=== PATIENT | female | born 1970 | race African-American/Black ===

== ENCOUNTER 2016-11-25 22:44 | Emergency (ER) | payer MEDICARE, OTHER ==
[~2016-11-25 22:44] MED LIST: BACT800T5 PO; COZA50TA PO; DICY1TAB26 PO; FERR324T4 PO; HALO5 PO; INDO50 PO; LEVO125T3 PO; PROM25TA5 PO; PROT40TA PO; RANI150 PO
[2016-11-25 22:58] VITALS: BP 144/78; PULSE 85; RESP 16; TEMP 98.2; O2SAT 97
[2016-11-25 23:38] LABS: AUTOMATED NEUTROPHIL # 3.9 TH/MM3 (1.8-7.7); BASOPHIL % 0.4 % (0.0-2.0); EOSINOPHIL # 0.1 TH/MM3 (0-0.4); EOSINOPHIL % 1.1 % (0.0-4.0); HEMATOCRIT 34.9 % (35.0-46.0); HEMO FLAGS DIFF FINAL; LYMPHOCYTE # 1.2 TH/MM3 (1.0-4.8); MEAN CELL VOLUME 89.2 FL (80.0-100.0); MEAN CORPUSCULAR HEMOGLOBIN 29.6 PG (27.0-34.0); MEAN CORPUSCULAR HGB CONC 33.2 % (32.0-36.0); MONO % 7.9 % (0.0-8.0); NEUT % 69.6 % (16.0-70.0); PLATELET COUNT 219 TH/MM3 (150-450); RED BLOOD COUNT 3.91 MIL/MM3 (4.00-5.30); RED CELL DISTRIBUTION WIDTH 13.7 % (11.6-17.2); WHITE BLOOD COUNT 5.7 TH/MM3 (4.0-11.0)
[2016-11-25 23:49] LABS: ANION GAP 11 MEQ/L (5-15)
[2016-11-25 23:52] LABS: ALKALINE PHOSPHATASE 91 U/L (45-117); ALT (GPT) 106 U/L (10-53); AST (GOT) 164 U/L (15-37); BICARBONATE 21.1 MEQ/L (21.0-32.0); BLOOD UREA NITROGEN 21 MG/DL (7-18); CHLORIDE 106 MEQ/L (98-107); GLOMERULAR FILTRATION RATE 38 ML/MIN (>89); POTASSIUM 4.3 MEQ/L (3.5-5.1); SODIUM (NA) 138 MEQ/L (136-145); TOTAL BILIRUBIN ADULT 0.3 MG/DL (0.2-1.0)
[2016-11-25 23:54] LABS: ACETAMINOPHEN LESS THAN 2.0 MCG/ML (10.0-30.0)
[2016-11-26 00:55] LABS: BACTERIA, URINE RARE /hpf; BLOOD, URINE SMALL (NEG); COMMENT (UR) CULT NOT INDICATED; CULTURE IF INDICATED CULT NOT INDICATED; GLUCOSE,URINE NEG (NEG); HYALINE CAST, URINE 18 /lpf (RARE); KETONE, URINE NEG (NEG); MUCUS URINE FEW /lpf (OCC); NITRITE,URINE NEG (NEG); SQUAMOUS EPITHELIAL CELL URINE 9 /hpf (0-5); URINE COLOR YELLOW (YELLW/STRAW)
[2016-11-26 00:57] LABS: AMPHETAMINE, URINE NEG (NEG); BARBITURATES, URINE NEG (NEG); COCAINE, URINE POS (NEG)
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
[2016-11-26 02:59] VITALS: BP 139/75; PULSE 75; PULSE 85; RESP 16; RESP 18; O2SAT 100
[2016-11-26] MEDS ORDERED: PROPOFOL 200 MG/20 ML AMP IV ONE (03:00)
[2016-11-26 03:10] VITALS: O2SAT 100
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
[2016-11-26] MEDS ORDERED: IBUP800T23 PO (06:16)
[2016-11-26 06:42] VITALS: BP 141/85; PULSE 76; RESP 18; O2SAT 97
== END 2016-11-26 09:16 | disposition home or self-care (01) ==
LOC: NEPD 22:44
DX: S43.085A Other dislocation of left shoulder joint, initial encounter (principal); S80.02XA Contusion of left knee, initial encounter; I10 Essential (primary) hypertension; Z86.2 Personal history of diseases of the blood and blood-forming organs and certain disorders involving the immune mechanism; Z86.59 Personal history of other mental and behavioral disorders; Z86.79 Personal history of other diseases of the circulatory system; Z86.69 Personal history of other diseases of the nervous system and sense organs; V09.9XXA Pedestrian injured in unspecified transport accident, initial encounter
CPT/HCPCS: 23650; 73030; 73560; 80053; 80307; 81001; 84703; 85025; 99152

== ENCOUNTER → 2017-03-01 | Outpatient (CLI) | payer MEDICARE, OTHER ==
[~2017-03-01] MED LIST changes: -BACT800T5 PO; -COZA50TA PO; -DICY1TAB26 PO; -FERR324T4 PO; -HALO5 PO; +IBUP800T23 PO; -INDO50 PO; -LEVO125T3 PO; -PROM25TA5 PO; -PROT40TA PO; -RANI150 PO
[2017-03-01 14:51] LABS: AUTOMATED NEUTROPHIL # 2.4 TH/MM3 (1.8-7.7); EOSINOPHIL # 0.1 TH/MM3 (0-0.4); EOSINOPHIL % 1.6 % (0.0-4.0); HEMATOCRIT 38.5 % (35.0-46.0); HEMO FLAGS DIFF FINAL; LYMPH % 33.4 % (9.0-44.0); LYMPHOCYTE # 1.5 TH/MM3 (1.0-4.8); MEAN CELL VOLUME 87.1 FL (80.0-100.0); MEAN CORPUSCULAR HEMOGLOBIN 29.1 PG (27.0-34.0); MEAN CORPUSCULAR HGB CONC 33.4 % (32.0-36.0); MONO % 11.2 % (0.0-8.0); NEUT % 52.8 % (16.0-70.0); PLATELET COUNT 236 TH/MM3 (150-450); RED BLOOD COUNT 4.42 MIL/MM3 (4.00-5.30); RED CELL DISTRIBUTION WIDTH 14.7 % (11.6-17.2); WHITE BLOOD COUNT 4.6 TH/MM3 (4.0-11.0)
[2017-03-01 15:00] LABS: ALT (GPT) 77 U/L (10-53); ANION GAP 10 MEQ/L (5-15); AST (GOT) 128 U/L (15-37); BICARBONATE 23.9 MEQ/L (21.0-32.0); BLOOD UREA NITROGEN 13 MG/DL (7-18); CHLORIDE 106 MEQ/L (98-107); GLOMERULAR FILTRATION RATE 89 ML/MIN (>89); GLUCOSE,FASTING 93 MG/DL (74-99); POTASSIUM 4.4 MEQ/L (3.5-5.1); SODIUM (NA) 140 MEQ/L (136-145)
[2017-03-01 15:09] LABS: ALKALINE PHOSPHATASE 80 U/L (45-117); FREE T3 2.44 PG/ML (2.18-3.98); FREE T4 0.88 NG/DL (0.76-1.46); HDL CHOLESTEROL 83.8 MG/DL (40.0-60.0); LDL CHOLESTEROL 78 MG/DL (0-99); TOTAL BILIRUBIN ADULT 0.3 MG/DL (0.2-1.0)
== END ==
LOC: CLAB 14:15
PROVIDERS: ATTEND Family Medicine
DX: I10 Essential (primary) hypertension (principal); E03.9 Hypothyroidism, unspecified
CPT/HCPCS: 36415; 80053; 80061; 84439; 84481; 85025

== ENCOUNTER 2017-04-06 16:38 | Inpatient (IN) | payer MEDICARE, OTHER ==
[~2017-04-06] VITALS: Ht 152.4 cm; Wt 98.0 kg
[2017-04-06 16:47] VITALS: BP 150/102; PULSE 96; RESP 19; TEMP 99.2; O2SAT 98
[2017-04-06] MEDS ORDERED: SODIUM CHLOR 0.9% 1000 ML INJ 1,000 ML IV SCH (16:54)
[2017-04-06] MEDS ORDERED: CITA10TA4 PO (16:56)
[2017-04-06] MEDS ORDERED: RANI150C PO (16:56)
[2017-04-06] MEDS ORDERED: LEVO125T4 PO (16:56)
[2017-04-06] MEDS ORDERED: SUCR1TAB PO (16:56)
[2017-04-06] MEDS ORDERED: AMLO2.5T PO (16:56)
[2017-04-06] MEDS ORDERED: HYDR25TA5 PO (16:56)
[2017-04-06] MEDS ORDERED: CLON0.1T PO (16:56)
[2017-04-06] MEDS ORDERED: ONDA1TAB17 PO (16:56)
[2017-04-06] MEDS ORDERED: ONDANSETRON HCL 4 MG/2 ML VIAL IVP ONE (17:00)
--- NOTE | 2017-04-06 17:07 | PD ---
HPI Chief Complaint: Abdominal Pain Time Seen by Provider: 16:59 Travel History International Travel<30 days: No Contact w/Intl Traveler<30days: No Traveled to known affect area: No History of Present Illness HPI 46-year-old female presents to the emergency department for evaluation of abdominal pain. Patient states this pain with nausea vomiting has been intermittent for the past year. Today she came in for evaluation because she was unable to hold down any food or her medication. She states she has been treated for this problem multiple times within the last year. Patient denies any diarrhea or constipation. Patient denies shortness of breath, chest pain, headaches, weakness, dizziness, urinary symptoms. Bowel sounds active in all 4 quadrants right upper quadrant tenderness and guarding noted. Patient was asked about history of liver problems and she states "I do not know but I do drink a lot and lot of liquor". PFSH Past Medical History Anemia: Yes Blood Disorders: No Bipolar Disorder: Yes Depression: Yes Heart Rhythm Problems: No Cardiac Catheterization: No Cardiovascular Problems: Yes High Cholesterol: No Congestive Heart Failure: No Diabetes: No Diminished Hearing: No Gastrointestinal Disorders: No Hypertension: Yes Immune Disorder: No Psychiatric: Yes Migraines: Yes Myocardial Infarction: No Renal Failure: No Schizophrenia: Yes Ulcer: No LMP: 03/23/17 : 2 Para: 1 : 1 Past Surgical History Cholecystectomy: Yes Coronary Artery Bypass Graft: No Social History Alcohol Use: Yes (EVERYDAY; BEER) Tobacco Use: No Substance Use: Yes (ALCOHOL, COCAINE) Allergies-Medications (Allergen,Severity, Reaction): Coded Allergies: No Known Allergies (Verified , 04/05/16) Reported Meds & Prescriptions Reported Meds & Active Scripts Active Reported Hydrochlorothiazide 25 Mg Tab 25 Mg PO DAILY Levothyroxine (Levothyroxine Sodium) 125 Mcg Tab 125 Mcg PO DAILY Amlodipine (Amlodipine Besylate) 2.5 Mg Tab 2.5 Mg PO DAILY Ondansetron (Ondansetron HCl) 8 Mg Tab 4 Mg PO Q8HR PRN Clonidine (Clonidine HCl) 0.1 Mg Tab 0.1 Mg PO BID Citalopram (Citalopram Hydrobromide) 10 Mg Tab 10 Mg PO DAILY Ranitidine (Ranitidine HCl) 150 Mg Cap 150 Mg PO DAILY Sucralfate 1 Gram Tab 1 Gm PO TID on empty stomach Review of Systems Except as stated in HPI: all other systems reviewed are Neg Physical Exam Narrative GENERAL: Well-nourished, well-developed 46-year-old female patient. SKIN: Focused skin assessment warm/dry. HEAD: Normocephalic. Atraumatic EYES: No scleral icterus. No injection or drainage. NECK: Supple, trachea midline. No JVD or lymphadenopathy. CARDIOVASCULAR: Regular rate and rhythm without murmurs, gallops, or rubs. RESPIRATORY: Breath sounds equal bilaterally. No accessory muscle use. GASTROINTESTINAL: Abdomen round, soft. Right upper quadrant tenderness and guarding noted. MUSCULOSKELETAL: No cyanosis, or edema. BACK: Nontender without obvious deformity. No CVA tenderness. Data Data Last Documented VS Vital Signs Date Time Temp Pulse Resp B/P (MAP) Pulse Ox O2 Delivery O2 Flow Rate FiO2 04/06/17 16:47 99.2 96 19 150/102 (118) 98 Room Air Orders Orders Complete Blood Count With Diff (04/06/17 16:54) Comprehensive Metabolic Panel (04/06/17 16:54) Urinalysis - C+S If Indicated (04/06/17 16:54) Iv Access Insert/Monitor (04/06/17 16:54) Ecg Monitoring (04/06/17 16:54) Oximetry (04/06/17 16:54) NPO (04/06/17 16:54) Ondansetron Inj (Zofran Inj) (04/06/17 17:00) Sodium Chlor 0.9% 1000 Ml Inj (Ns 1000 M (04/06/17 16:54) Ed Urine Pregnancytest Poc (04/06/17 16:54) Urine Culture (04/06/17 17:05) Lipase (04/06/17 17:05) Drug Screen, Random Urine (04/06/17 18:30) Sodium Chlor 0.9% 1000 Ml Inj (Ns 1000 M (04/06/17 18:45) Ct Abd/Pel W Iv Contrast(Rout) (04/06/17 ) Labs Laboratory Tests Test 04/06/17 17:05 White Blood Count 4.0 TH/MM3 Red Blood Count 3.88 MIL/MM3 Hemoglobin 11.3 GM/DL Hematocrit 33.9 % Mean Corpuscular Volume 87.5 FL Mean Corpuscular Hemoglobin 29.1 PG Mean Corpuscular Hemoglobin Concent 33.2 % Red Cell Distribution Width 15.7 % Platelet Count 249 TH/MM3 Mean Platelet Volume 7.3 FL Neutrophils (%) (Auto) 62.8 % Lymphocytes (%) (Auto) 20.9 % Monocytes (%) (Auto) 10.4 % Eosinophils (%) (Auto) 1.3 % Basophils (%) (Auto) 4.6 % Neutrophils # (Auto) 2.5 TH/MM3 Lymphocytes # (Auto) 0.8 TH/MM3 Monocytes # (Auto) 0.4 TH/MM3 Eosinophils # (Auto) 0.1 TH/MM3 Basophils # (Auto) 0.2 TH/MM3 CBC Comment DIFF FINAL Differential Comment Urine Color YELLOW Urine Turbidity HAZY Urine pH 5.0 Urine Specific [place] 1.015 Urine Protein TRACE mg/dL Urine Glucose (UA) NEG mg/dL Urine Ketones NEG mg/dL Urine Occult Blood TRACE Urine Nitrite NEG Urine Bilirubin NEG Urine Urobilinogen LESS THAN 2.0 MG/DL Urine Leukocyte Esterase LARGE Urine RBC 6 /hpf Urine WBC 25 /hpf Urine Squamous Epithelial Cells 18 /hpf Urine Hyaline Casts 4 /lpf Microscopic Urinalysis Comment CULTURE INDICATED Blood Urea Nitrogen 8 MG/DL Creatinine 0.78 MG/DL Random Glucose 91 MG/DL Total Protein 8.7 GM/DL Albumin 3.4 GM/DL Calcium Level 7.7 MG/DL Alkaline Phosphatase 87 U/L Aspartate Amino Transf (AST/SGOT) 177 U/L Alanine Aminotransferase (ALT/SGPT) 90 U/L Total Bilirubin 0.4 MG/DL Sodium Level 133 MEQ/L Potassium Level 3.6 MEQ/L Chloride Level 100 MEQ/L Carbon Dioxide Level 21.6 MEQ/L Anion Gap 11 MEQ/L Estimat Glomerular Filtration Rate 97 ML/MIN Lipase 692 U/L [facility] Medical Decision Making Medical Screen Exam Complete: Yes Emergency Medical Condition: Yes Medical Record Reviewed: Yes Differential Diagnosis Gastroenteritis versus dehydration versus pancreatitis versus alcohol abuse versus electrolyte abnormality Narrative Course 46-year-old female patient presents to the emergency department with complaint of nausea, vomiting and abdominal pain. She has experienced this abdominal pain nausea vomiting intermittently for one year. She came in for treatment today because she has struggling to hold out her medication and food. She states she has been treated multiple times in the past year for this condition. She admits to abusing alcohol and cocaine. She states she does not know if she has liver problems but thinks it is likely due to her excessive amount of alcohol intake. Patient denies any diarrhea or constipation. Patient denies any shortness breath, chest pain, lightheadedness, dizziness, fevers, chills or urinary symptoms. CBC, CMP, Lipase, UA ordered and pending. 1 L NS IV bolus x2 and 4 mg IV Zofran ordered. CBC hemoglobin mildly low at 11.3 otherwise shows no acute abnormalities, CMP: AST and ALTs elevated, Na low at 133 and Ca low at 7.7 otherwise shows no acute abnormality, Lipase elevated at 692, UA shows high WBCs and leukocyte esterase culture indicated and pending. Alcohol level and drug screen ordered and pending. [facility] paged for admission for alcoholic pancreatitis. Dr. Bob called and accepted admission. He requested that we add on an abdominal CT. Abd CT ordered and pending. Diagnosis Primary Impression: Pancreatitis, acute Qualified Codes: K85.90 - Acute pancreatitis without necrosis or infection, unspecified Additional Impression: Nausea Admitting Information Admitting Physician Requests: Yoly Jimenes [facility] Apr 06, 2017 17:07
[2017-04-06 17:25] LABS: AUTOMATED NEUTROPHIL # 2.5 TH/MM3 (1.8-7.7); BASOPHIL # 0.2 TH/MM3 (0-0.2); BASOPHIL % 4.6 % (0.0-2.0); EOSINOPHIL # 0.1 TH/MM3 (0-0.4); EOSINOPHIL % 1.3 % (0.0-4.0); HEMATOCRIT 33.9 % (35.0-46.0); HEMO FLAGS DIFF FINAL; LYMPH % 20.9 % (9.0-44.0); LYMPHOCYTE # 0.8 TH/MM3 (1.0-4.8); MEAN CELL VOLUME 87.5 FL (80.0-100.0); MEAN CORPUSCULAR HEMOGLOBIN 29.1 PG (27.0-34.0); MEAN CORPUSCULAR HGB CONC 33.2 % (32.0-36.0); MONO % 10.4 % (0.0-8.0); NEUT % 62.8 % (16.0-70.0); PLATELET COUNT 249 TH/MM3 (150-450); RED BLOOD COUNT 3.88 MIL/MM3 (4.00-5.30); RED CELL DISTRIBUTION WIDTH 15.7 % (11.6-17.2)
[2017-04-06 17:52] LABS: BLOOD, URINE TRACE (NEG); COMMENT (UR) CULTURE INDICATED; CULTURE IF INDICATED CULTURE INDICATED; GLUCOSE,URINE NEG (NEG); HYALINE CAST, URINE 4 /lpf (RARE); KETONE, URINE NEG (NEG); NITRITE,URINE NEG (NEG); SQUAMOUS EPITHELIAL CELL URINE 18 /hpf (0-5); URINE COLOR YELLOW (YELLW/STRAW)
[2017-04-06 18:17] LABS: ANION GAP 11 MEQ/L (5-15); AST (GOT) 177 U/L (15-37); BICARBONATE 21.6 MEQ/L (21.0-32.0); BLOOD UREA NITROGEN 8 MG/DL (7-18); CHLORIDE 100 MEQ/L (98-107); GLOMERULAR FILTRATION RATE 97 ML/MIN (>89); POTASSIUM 3.6 MEQ/L (3.5-5.1); SODIUM (NA) 133 MEQ/L (136-145)
[2017-04-06 18:19] LABS: ALT (GPT) 90 U/L (10-53)
[2017-04-06 18:24] LABS: ALKALINE PHOSPHATASE 87 U/L (45-117); TOTAL BILIRUBIN ADULT 0.4 MG/DL (0.2-1.0)
[2017-04-06] MEDS ORDERED: MAGNESIUM HYDROXIDE SUSP 30 ML CUP PO PRN (18:45)
[2017-04-06] MEDS ORDERED: SODIUM CHLOR 0.9% 1000 ML INJ 1,000 ML IV ONE (18:45)
[2017-04-06] MEDS ORDERED: SENNOSIDES 8.6 MG TAB PO PRN (18:45)
[2017-04-06] MEDS ORDERED: NALOXONE HCL 0.4 MG/ML AMP IV PRN (18:45)
[2017-04-06] MEDS ORDERED: BISACODYL 10 MG SUPP RECTAL PRN (18:45)
[2017-04-06] MEDS ORDERED: LACTULOSE SYRUP 20 GM/30 ML CUP PO PRN (18:45)
[2017-04-06] MEDS ORDERED: MORPHINE SULFATE 4 MG/ML INJ IV PRN (18:45)
[2017-04-06] MEDS ORDERED: FLUMAZENIL 0.5 MG/5 ML VIAL IV PUSH PRN (19:30)
[2017-04-06] MEDS ORDERED: HALOPERIDOL LACTATE 5 MG/ML AMP IM PRN (19:30)
[2017-04-06] MEDS ORDERED: LORazepam 2 MG/ML VIAL IV PUSH PRN ×4 (19:30)
[2017-04-06 19:35] VITALS: BP 144/82; PULSE 89; RESP 16; O2SAT 97
[2017-04-06] MEDS ORDERED: IOHEXOL 350 MG/ML 10 ML VIAL (for RAD DIAG) IVCONTRAST ONE (19:35)
--- NOTE | 2017-04-06 19:36 | HHI.HP ---
[facility] Admission Diagnosis pancreatitis Diagnoses: (1) Pancreatitis Diagnosis: Principal (2) UTI (urinary tract infection) Diagnosis: Principal (3) Alcohol abuse Diagnosis: Principal (4) Rhabdomyolysis Diagnosis: Principal Travel History International Travel<30 Days: No Contact w/Intl Traveler <30 Da: No Traveled to Known Affected Are: No History of Present Illness This is a 46-year-old female with a PMH of Anxiety, Depression, Bipolar Disorder , HTN, Alcohol Abuse and Cocaine Abuse who presented to the ER with complaints of abdominal pain addition to nausea and vomiting. States symptoms been ongoing for the last 6 months, however now symptoms more severe. Drinks daily. Denies fever, chills, cough or chest pain. On arrival, BP 150/102, HR 96, O2 sat 98% on RA, Temp 99.2. CBC essentially unremarkable. Chemistry essentially unremarkable. LFTs elevated, similar comparison to previous. CPK 667. Troponin 0.05. Lipase 692. UA positive for UTI. Urine Drug Screen negative. CT Abd/Pelvis w/ severe fatty infiltration of the liver, no acute findings in the abdomen. Review of Systems Except as stated in HPI: all other systems reviewed are Neg ROS: 14 point review of systems otherwise negative. Past Family Social History Past Medical History PMH: Anxiety, Depression, Bipolar Disorder, HTN, Alcohol Abuse and Cocaine Abuse Past Surgical History PAST SURGICAL HISTORY: Cholecystectomy Allergies: Coded Allergies: No Known Allergies (Verified , 04/05/16) Family History PAST FAMILY HISTORY: Reviewed. No h/o DM or CAD Social History PAST SOCIAL HISTORY: Positive for alcohol abuse. Negative for tobacco. Positive for Cocaine. Physical Exam Vital Signs Vital Signs Date Time Temp Pulse Resp B/P (MAP) Pulse Ox O2 Delivery O2 Flow Rate FiO2 04/06/17 16:47 99.2 96 19 150/102 (118) 98 Room Air Physical Exam PE: GENERAL: Middle-aged female in no acute distress. HEENT: PERRLA, EOMI. No scleral icterus or conjunctival pallor. No lid lag or facial droop. CARDIOVASCULAR: Regular rate and rhythm. No obvious murmurs to auscultation. No chest tenderness to palpation. RESPIRATORY: No obvious rhonchi or wheezing. Clear to auscultation. Breath sounds equal bilaterally. GASTROINTESTINAL: Abdomen soft, mild epigastric tenderness to palpation, nondistended. BS normal. MUSCULOSKELETAL: Extremities without clubbing, cyanosis, or edema. No obvious deformities. NEUROLOGICAL: Awake, alert and oriented x4. No focal neurologic deficits. Moving both upper and lower extremities spontaneously. Laboratory Laboratory Tests Test 04/06/17 17:05 04/06/17 19:07 White Blood Count 4.0 Red Blood Count 3.88 Hemoglobin 11.3 Hematocrit 33.9 Mean Corpuscular Volume 87.5 Mean Corpuscular Hemoglobin 29.1 Mean Corpuscular Hemoglobin Concent 33.2 Red Cell Distribution Width 15.7 Platelet Count 249 Mean Platelet Volume 7.3 Neutrophils (%) (Auto) 62.8 Lymphocytes (%) (Auto) 20.9 Monocytes (%) (Auto) 10.4 Eosinophils (%) (Auto) 1.3 Basophils (%) (Auto) 4.6 Neutrophils # (Auto) 2.5 Lymphocytes # (Auto) 0.8 Monocytes # (Auto) 0.4 Eosinophils # (Auto) 0.1 Basophils # (Auto) 0.2 CBC Comment DIFF FINAL Differential Comment Urine Color YELLOW Urine Turbidity HAZY Urine pH 5.0 Urine Specific Ermine 1.015 Urine Protein TRACE Urine Glucose (UA) NEG Urine Ketones NEG Urine Occult Blood TRACE Urine Nitrite NEG Urine Bilirubin NEG Urine Urobilinogen LESS THAN 2.0 Urine Leukocyte Esterase LARGE Urine RBC 6 Urine WBC 25 Urine Squamous Epithelial Cells 18 Urine Hyaline Casts 4 Microscopic Urinalysis Comment CULTURE INDICATED Blood Urea Nitrogen 8 Creatinine 0.78 Random Glucose 91 Total Protein 8.7 Albumin 3.4 Calcium Level 7.7 Alkaline Phosphatase 87 Aspartate Amino Transf (AST/SGOT) 177 Alanine Aminotransferase (ALT/SGPT) 90 Total Bilirubin 0.4 Sodium Level 133 Potassium Level 3.6 Chloride Level 100 Carbon Dioxide Level 21.6 Anion Gap 11 Estimat Glomerular Filtration Rate 97 Lipase 692 Urine Opiates Screen NEG Urine Barbiturates Screen NEG Urine Amphetamines Screen NEG Urine Benzodiazepines Screen NEG Urine Cocaine Screen NEG Urine Cannabinoids Screen NEG Date/Time Source Procedure Growth Status 04/06/17 17:05 Urine Clean Catch Urine Culture Pending Received Result Diagram: 04/06/17 1705 04/06/17 1705 Caprini VTE Risk Assessment Caprini VTE Risk Assessment: No/Low Risk (score <= 1) Caprini Risk Assessment Model Point Value = 1 Point Value = 2 Point Value = 3 Point Value = 5 Age 41-60 Minor surgery BMI > 25 kg/m2 Swollen legs Varicose veins or History of unexplained or recurrent spontaneous Oral contraceptives or hormone replacement Sepsis (< 1 month) Serious lung disease, including pneumonia (< 1 month) Abnormal pulmonary function Acute myocardial infarction Congestive heart failure (< 1 month) History of inflammatory bowel disease Medical patient at bed rest Age 61-74 Arthroscopic surgery Major open surgery (> 45 min) Laparoscopic surgery (> 45 min) Malignancy Confined to bed (> 72 hours) Immobilizing plaster cast Central venous access Age >= 75 History of VTE Family history of VTE Factor V Leiden Prothrombin [id number] Lupus anticoagulant Anticardiolipin antibodies Elevated serum homocysteine Heparin-induced thrombocytopenia Other congenital or acquired thrombophilia Stroke (< 1 month) Elective arthroplasty Hip, pelvis, or leg fracture Acute spinal cord injury (< 1 month) Prophylaxis Regimen Total Risk Factor Score Risk Level Prophylaxis Regimen 0-1 Low Early ambulation 2 Moderate Order ONE of the following: *Sequential Compression Device (SCD) *Heparin 5000 units SQ BID 3-4 Higher Order ONE of the following medications: *Heparin 5000 units SQ TID *Enoxaparin/Lovenox 40 mg SQ daily (WT < 150 kg, CrCl > 30 mL/min) *Enoxaparin/Lovenox 30 mg SQ daily (WT < 150 kg, CrCl > 10-29 mL/min) *Enoxaparin/Lovenox 30 mg SQ BID (WT < 150 kg, CrCl > 30 mL/min) AND/OR *Sequential Compression Device (SCD) 5 or more Highest Order ONE of the following medications: *Heparin 5000 units SQ TID (Preferred with Epidurals) *Enoxaparin/Lovenox 40 mg SQ daily (WT < 150 kg, CrCl > 30 mL/min) *Enoxaparin/Lovenox 30 mg SQ daily (WT < 150 kg, CrCl > 10-29 mL/min) *Enoxaparin/Lovenox 30 mg SQ BID (WT < 150 kg, CrCl > 30 mL/min) AND *Sequential Compression Device (SCD) Assessment and Plan Problem List: (1) Pancreatitis ICD Code: K85.90 - Acute pancreatitis without necrosis or infection, unspecified (2) UTI (urinary tract infection) ICD Code: N39.0 - Urinary tract infection, site not specified (3) Rhabdomyolysis ICD Code: M62.82 - Rhabdomyolysis (4) Alcohol abuse ICD Code: F10.10 - Alcohol abuse, uncomplicated Assessment and Plan A/P: 1. Pancreatitis: c/o abdominal pain, nausea/vomiting x6 months, now w/ worsening symptoms. Lipase 692. CT Abd/Pelvis w/ severe fatty infiltration of liver, no acute findings, images reviewed by me. Protonix IV, IVF, analgesics/ antiemetics as needed. 2. UTI: U/a w/ UTI. Start IV Rocephin, IVF. 3. Rhabdomyolysis: Mild. CPK 667. H/o Cocaine, Urine Drug Screen negative. IVF, check serial CPK. 4. Alcohol Abuse: CIWA, Seizure Precautions, MVT/Thiamine/Folate replacement. 5. DVT Prophylaxis: SCD/Teds. 6. Social work for d/c planning as needed. 7. Case discussed w/ ER physician at length. Jennifer Meehan MD Apr 06, 2017 19:36
--- NOTE | 2017-04-06 19:45 | RADRPT ---
EXAM DATE/TIME: 04/06/2017 19:15 [place] COMPARISON: No previous studies available for comparison. INDICATIONS : Patient complains of abdominal pain for 2 months. IV CONTRAST: 90 cc Omnipaque 350 (iohexol) IV ORAL CONTRAST: No oral contrast ingested. RADIATION DOSE: 10.03 CTDIvol (mGy) MEDICAL HISTORY : Cardiovascular disease. Hypertension. SURGICAL HISTORY : Cholecystectomy. ENCOUNTER: Initial ACUITY: 2 months PAIN SCALE: 10/10 LOCATION: abdomen TECHNIQUE: Volumetric scanning of the abdomen and pelvis was performed. Using automated exposure control and ad justment of the mA and/or kV according to patient size, radiation dose was kept as low as reasonably achievable to obtain optimal diagnostic quality images. DICOM format image data is available electro nically for review and comparison. FINDINGS: Lung bases are clear. Severe fatty liver. Spleen, adrenals, kidneys and pancreas unremarkable. Previo us cholecystectomy. No free fluid. No bowel obstruction. No adenopathy. No acute bony abnormalities. Presumed nabothian c ysts noted in the cervical region. CONCLUSION: 1. Severe fatty infiltration of the liver. Previous cholecystectomy. No acute findings within the abd omen and pelvis. Presumed nabothian cysts in the cervical region. 2. Small hiatal hernia. Floyd Fernandez MD on April 06, 2017 at 19:37 Board Certified Radiologist. This report was verified electronically.
[2017-04-06 19:57] LABS: CKMB 6.8 NG/ML (0.5-3.6)
[2017-04-06] MEDS ORDERED: PILL SPLITTER OTHER PRN (21:00)
[2017-04-06 21:12] VITALS: BP_SYST 146; BP_SYST 181; BP_DIAS 104; BP_DIAS 90; PULSE 89; RESP 18; TEMP 97.2; O2SAT 100
[2017-04-06] MEDS: cefTRIAXone INJ 1,000 MG in SODIUM CHLORIDE 0.9% INJ 100 ML IV SCH (21:22)
[2017-04-06] MEDS: ONDANSETRON HCL 4 MG/2 ML VIAL IVP PRN (21:23)
[2017-04-06] MEDS: cloNIDine HCL 0.1 MG TAB PO SCH (21:23)
[2017-04-06] MEDS: NS + KCL 20 MEQ INJ 1,000 ML IV SCH (22:04)
[2017-04-06] MEDS: FAMOTIDINE 20 MG/2 ML VIAL IV PUSH SCH (22:37)
[2017-04-06] MEDS: MORPHINE SULFATE 4 MG/ML INJ IV PRN (22:38)
[2017-04-07] VITALS (7 sets, daily range): BP systolic 128–184; BP diastolic 79–110; PULSE 63–77; RESP 17–19; TEMP 98.1–99.1; O2SAT 97–100
[2017-04-07 01:38] LABS: CKMB 6.4 NG/ML (0.5-3.6)
[2017-04-07] MEDS: NS + KCL 20 MEQ INJ 1,000 ML IV SCH ×2 (06:08→16:00)
[2017-04-07] MEDS: FAMOTIDINE 20 MG/2 ML VIAL IV PUSH SCH ×2 (08:49→22:12)
[2017-04-07] MEDS: THIAMINE HCL 100 MG TAB PO SCH (08:50)
[2017-04-07] MEDS: cloNIDine HCL 0.1 MG TAB PO SCH ×2 (08:50→21:58)
[2017-04-07] MEDS: SUCRALFATE 1 GM TAB PO SCH ×3 (08:50→18:02)
[2017-04-07] MEDS: MULTIVITAMINS/MINERALS THERAPEUTIC TAB PO SCH (08:50)
[2017-04-07] MEDS: CITALOPRAM HYDROBROMIDE 20 MG TAB PO SCH (08:51)
[2017-04-07] MEDS: amLODIPine BESYLATE 5 MG TAB PO SCH (08:51)
[2017-04-07] MEDS: LEVOTHYROXINE SODIUM 125 MCG TAB PO SCH (08:52)
[2017-04-07] MEDS: FOLIC ACID 1 MG TAB PO SCH (08:52)
[2017-04-07] MEDS ORDERED: INFLUENZA VIRUS VACCINE (QUADRIVALENT) 0.5 ML SYR IM ONE (10:00)
[2017-04-07] MEDS ORDERED: PNEUMOCOCCAL POLYVALENT INJ 25 MCG/0.5 ML SYR IM ONE (10:00)
--- NOTE | 2017-04-07 10:35 | HHI.PR ---
Subjective Remarks Follow up for pancreatitis, dehydration. The patient reports feeling better this morning. She has occasional nausea but no vomiting. Abdominal pain resolved. She has not yet attempt oral intake. Denies any chest pain or shortness of breath. She admits to drinking heavy amounts of beer daily. She does not feel ready for discharge yet today. Objective Vitals Vital Signs Date Time Temp Pulse Resp B/P (MAP) Pulse Ox O2 Delivery O2 Flow Rate FiO2 04/07/17 08:43 99.1 71 19 151/93 (112) 97 04/07/17 05:42 16 04/07/17 04:09 98.3 77 18 128/79 (95) 97 04/07/17 01:07 98.2 69 17 134/87 (103) 100 04/06/17 22:47 15 04/06/17 21:12 97.2 89 18 146/90 (108) 100 04/06/17 20:40 04/06/17 19:35 89 16 144/82 (102) 97 Room Air 04/06/17 16:47 99.2 96 19 150/102 (118) 98 Room Air I/O 04/06/17 04/06/17 04/06/17 04/07/17 04/07/17 04/07/17 07:00 15:00 23:00 07:00 15:00 23:00 Intake Total 1000 ml 848 ml Balance 1000 ml 848 ml Intake Oral 0 ml IV Total 1000 ml 848 ml # Voids 1 5 Result Diagram: 04/06/17 1705 04/06/17 1705 Imaging Last Impressions Abdomen/Pelvis CT 04/06/17 0000 Signed Impressions: Service Date/Time: Thursday, April 06, 2017 19:15 - CONCLUSION: 1. Severe fatty infiltration of the liver. Previous cholecystectomy. No acute findings within the abdomen and pelvis. Presumed nabothian cysts in the cervical region. 2. Small hiatal hernia. Floyd Fernandez MD Objective Remarks GENERAL: Well-nourished, well-developed middle aged female patient in [facility]. SKIN: Warm and dry. No rash. HEENT: Normocephalic. Atraumatic.Pupils equal and round. Mucous membranes pink and moist. NECK: Supple. Trachea midline. CARDIOVASCULAR: Regular rate and rhythm. S1, S2 noted. No murmur appreciated. RESPIRATORY: No accessory muscle use. Clear to auscultation. Breath sounds equal bilaterally. GASTROINTESTINAL: Abdomen soft, non-tender, nondistended. Normoactive bowel sounds x4. MUSCULOSKELETAL: No obvious deformities. Extremities without clubbing, cyanosis , or edema. NEUROLOGICAL: Awake and alert. No obvious cranial nerve deficits. Motor grossly within normal limits. Normal speech. PSYCHIATRIC: Appropriate mood and affect; insight and judgment normal. Medications and IVs Current Medications Medications (Trade) Dose Ordered Sig/Kelsea Route Start Time Stop Time Status Last Admin (Zofran Inj) 4 mg Q6H PRN IVP 04/06/17 18:45 04/06/17 21:23 (Morphine Inj) 2 mg Q3H PRN IV 04/06/17 18:45 04/07/17 05:37 (Morphine Inj) 4 mg Q3H PRN IV 04/06/17 18:45 04/06/17 22:38 (Narcan Inj) 0.4 mg UNSCH PRN IV 04/06/17 18:45 (Milk Of Magnesia Liq) 30 ml Q12H PRN PO 04/06/17 18:45 (Senokot) 17.2 mg Q12H PRN PO 04/06/17 18:45 (Dulcolax Supp) 10 mg DAILY PRN RECTAL 04/06/17 18:45 (Lactulose Liq) 30 ml DAILY PRN PO 04/06/17 18:45 Potassium Chloride/Sodium Chloride 1,000 ml @ 100 mls/hr Q10H IV 04/06/17 20:00 04/07/17 06:08 (Folate) 1 mg DAILY PO 04/07/17 09:00 04/12/17 08:59 04/07/17 08:52 (Vitamin B1) 100 mg DAILY PO 04/07/17 09:00 04/07/17 08:50 (Theragran M Tab) 1 tab DAILY PO 04/07/17 09:00 04/12/17 08:59 04/07/17 08:50 (Romazicon Inj) 0.2 mg Q1M PRN IV PUSH 04/06/17 19:30 (Ativan) 1 mg Q4H PRN PO 04/06/17 19:30 (Ativan Inj) 1 mg Q4H PRN IV PUSH 04/06/17 19:30 (Ativan) 2 mg Q2H PRN PO 04/06/17 19:30 (Ativan Inj) 2 mg Q2H PRN IV PUSH 04/06/17 19:30 (Ativan Inj) 2 mg Q1H PRN IV PUSH 04/06/17 19:30 (Ativan Inj) 2 mg Q15M PRN IV PUSH 04/06/17 19:30 (Haldol Inj) 2 mg Q15M PRN IM 04/06/17 19:30 Ceftriaxone Sodium 1000 mg/ Sodium Chloride 100 ml @ 200 mls/hr Q24H IV 04/06/17 20:00 04/06/17 21:22 (Pepcid Inj) 20 mg Q12H IV PUSH 04/06/17 21:00 04/07/17 08:49 (Norvasc) 2.5 mg DAILY PO 04/07/17 09:00 04/07/17 08:51 (CeleXA) 10 mg DAILY PO 04/07/17 09:00 04/07/17 08:51 (Catapres) 0.1 mg BID PO 04/06/17 21:00 04/07/17 08:50 (Synthroid) 125 mcg DAILY PO 04/07/17 09:00 04/07/17 08:52 (Carafate) 1 gm TID PO 04/07/17 09:00 04/07/17 08:50 (Pill Splitter) 1 ea UNSCH PRN OTHER 04/06/17 21:00 A/P Problem List: (1) Pancreatitis ICD Code: K85.90 - Acute pancreatitis without necrosis or infection, unspecified (2) UTI (urinary tract infection) ICD Code: N39.0 - Urinary tract infection, site not specified (3) Rhabdomyolysis ICD Code: M62.82 - Rhabdomyolysis (4) Alcohol abuse ICD Code: F10.10 - Alcohol abuse, uncomplicated Assessment and Plan 46-year-old female with a PMH of Anxiety, Depression, Bipolar Disorder, HTN, Alcohol Abuse and Cocaine Abuse who presented to the ER with complaints of abdominal pain addition to nausea and vomiting. Acute Pancreatitis: c/o abdominal pain, nausea/vomiting x6 months, now w/ worsening symptoms. Lipase 692. CT Abd/Pelvis w/ severe fatty infiltration of liver, no acute findings, images reviewed by me. Protonix IV, IVF, analgesics/ antiemetics as needed. Repeat labs pending. Advance diet to clear liquids. UTI: U/a w/ UTI. Start IV Rocephin, continue IVF. Monitor urine culture. Mild Rhabdomyolysis: CPK 667. H/o Cocaine, Urine Drug Screen negative. Give IVF, check serial CPK. Alcohol Abuse: CIWA, Seizure Precautions, MVT/Thiamine/Folate replacement. DVT Prophylaxis: SCD/Teds. Discharge Planning Possible discharge tomorrow am if tolerating oral intake. Florence Dowell PA-C Apr 07, 2017 10:35 am
[2017-04-07 11:54] LABS: AUTOMATED NEUTROPHIL # 2.2 TH/MM3 (1.8-7.7); BASOPHIL % 1.1 % (0.0-2.0); EOSINOPHIL # 0.1 TH/MM3 (0-0.4); EOSINOPHIL % 2.1 % (0.0-4.0); HEMATOCRIT 32.3 % (35.0-46.0); HEMO FLAGS DIFF FINAL; LYMPHOCYTE # 0.5 TH/MM3 (1.0-4.8); MEAN CELL VOLUME 88.5 FL (80.0-100.0); MEAN CORPUSCULAR HEMOGLOBIN 29.1 PG (27.0-34.0); MEAN CORPUSCULAR HGB CONC 32.9 % (32.0-36.0); MONO % 10.1 % (0.0-8.0); NEUT % 69.7 % (16.0-70.0); PLATELET COUNT 208 TH/MM3 (150-450); RED BLOOD COUNT 3.65 MIL/MM3 (4.00-5.30); RED CELL DISTRIBUTION WIDTH 15.5 % (11.6-17.2); WHITE BLOOD COUNT 3.1 TH/MM3 (4.0-11.0)
[2017-04-07 12:18] LABS: BICARBONATE 23.7 MEQ/L (21.0-32.0); POTASSIUM 4.1 MEQ/L (3.5-5.1); TOTAL BILIRUBIN ADULT 0.5 MG/DL (0.2-1.0)
[2017-04-07 12:26] LABS: CALCIUM-PROTEIN CORRECTED 7.1 MG/DL (8.5-10.1)
[2017-04-07 12:31] LABS: CKMB 4.1 NG/ML (0.5-3.6)
[2017-04-07] MEDS ORDERED: CALCIUM GLUCONATE INJ 1 GM in SODIUM CHLORIDE 0.9% INJ 100 ML IV ONE (13:00)
--- NOTE | 2017-04-07 13:28 | EKG ---
Date Performed: 04/06/2017 Time Performed: 19:05:44 PTAGE: 46 years EKG: Sinus rhythm WITH SINUS ARRHYTHMIA Compared to prior tracing no significant change NORMAL ECG PREVIOUS TRACING : 04/14/2014 16.59 DOCTOR: Gama Major Interpretating Date/Time 04/07/2017 13:27:25
[2017-04-07] MEDS: CALCIUM CARBONATE 500 MG CHEWABLE TAB CHEW SCH (21:58)
[2017-04-07] MEDS: cefTRIAXone INJ 1,000 MG in SODIUM CHLORIDE 0.9% INJ 100 ML IV SCH (22:17)
[2017-04-07] MEDS: LORazepam 2 MG TAB PO PRN (22:35)
[2017-04-08] VITALS (8 sets, daily range): BP systolic 156–178; BP diastolic 84–113; PULSE 55–70; RESP 16–18; TEMP 98.1–98.7; O2SAT 10–100
[2017-04-08] MEDS: LORazepam 1 MG TAB PO PRN (00:27)
[2017-04-08] MEDS ORDERED: ENALAPRILAT 2.5 MG/2 ML VIAL IV PUSH ONE (02:00)
[2017-04-08] MEDS: NS + KCL 20 MEQ INJ 1,000 ML IV SCH ×3 (04:34→20:18)
--- NOTE | 2017-04-08 08:18 | HHI.PR ---
Subjective Remarks Follow up for pancreatitis, dehydration. The patient is sleeping upon my arrival , easily awakens. She reports few episodes of vomiting overnight with continued epigastric discomfort. She also reports a few episodes of diarrhea overnight. Denies fevers but does report chills. She did eat her regular meal last night however reportedly vomited a few times afterwards. She does not feel ready for discharge. She reports she is homeless and does not have anywhere to go for [place]. Objective Vitals Vital Signs Date Time Temp Pulse Resp B/P (MAP) Pulse Ox O2 Delivery O2 Flow Rate FiO2 04/08/17 07:00 98.7 64 16 161/96 (117) 99 04/08/17 03:25 62 156/84 (108) 04/08/17 01:36 172/104 (126) 04/08/17 01:21 68 156/105 (122) 04/07/17 23:27 98.1 63 18 177/110 (132) 98 04/07/17 21:51 68 184/109 (134) 04/07/17 21:46 98.1 68 18 179/108 (131) 100 04/07/17 11:33 98.7 65 19 134/84 (101) 98 04/07/17 08:43 99.1 71 19 151/93 (112) 97 I/O 04/07/17 04/07/17 04/07/17 04/08/17 04/08/17 04/08/17 06:59 14:59 22:59 06:59 14:59 22:59 Intake Total 848 ml 600 ml Balance 848 ml 600 ml Intake Oral 0 ml 500 ml IV Total 848 ml 100 ml # Voids 5 1 Result Diagram: 04/07/17 1132 04/07/17 1132 Imaging Last Impressions Abdomen/Pelvis CT 04/06/17 0000 Signed Impressions: Service Date/Time: Thursday, April 06, 2017 19:15 - CONCLUSION: 1. Severe fatty infiltration of the liver. Previous cholecystectomy. No acute findings within the abdomen and pelvis. Presumed nabothian cysts in the cervical region. 2. Small hiatal hernia. Floyd Fernandez MD Objective Remarks GENERAL: Well-nourished, well-developed middle aged female patient in [facility]. SKIN: Warm and dry. No rash. HEENT: Normocephalic. Atraumatic.Pupils equal and round. Mucous membranes pink and moist. CARDIOVASCULAR: Regular rate and rhythm. S1, S2 noted. No murmur appreciated. RESPIRATORY: No accessory muscle use. Clear to auscultation. Breath sounds equal bilaterally. GASTROINTESTINAL: Abdomen soft, non-tender, nondistended. Normoactive bowel sounds x4. MUSCULOSKELETAL: No obvious deformities. Extremities without clubbing, cyanosis , or edema. NEUROLOGICAL: Awake and alert. No obvious cranial nerve deficits. Motor grossly within normal limits. Normal speech. PSYCHIATRIC: Appropriate mood and affect; insight and judgment normal. Medications and IVs Current Medications Medications (Trade) Dose Ordered Sig/Kelsea Route Start Time Stop Time Status Last Admin (Zofran Inj) 4 mg Q6H PRN IVP 04/06/17 18:45 04/06/17 21:23 (Morphine Inj) 2 mg Q3H PRN IV 04/06/17 18:45 04/07/17 05:37 (Morphine Inj) 4 mg Q3H PRN IV 04/06/17 18:45 04/06/17 22:38 (Narcan Inj) 0.4 mg UNSCH PRN IV 04/06/17 18:45 (Milk Of Magnesia Liq) 30 ml Q12H PRN PO 04/06/17 18:45 (Senokot) 17.2 mg Q12H PRN PO 04/06/17 18:45 (Dulcolax Supp) 10 mg DAILY PRN RECTAL 04/06/17 18:45 (Lactulose Liq) 30 ml DAILY PRN PO 04/06/17 18:45 Potassium Chloride/Sodium Chloride 1,000 ml @ 100 mls/hr Q10H IV 04/06/17 20:00 04/08/17 04:34 (Folate) 1 mg DAILY PO 04/07/17 09:00 04/12/17 08:59 04/07/17 08:52 (Vitamin B1) 100 mg DAILY PO 04/07/17 09:00 04/07/17 08:50 (Theragran M Tab) 1 tab DAILY PO 04/07/17 09:00 04/12/17 08:59 04/07/17 08:50 (Romazicon Inj) 0.2 mg Q1M PRN IV PUSH 04/06/17 19:30 (Ativan) 1 mg Q4H PRN PO 04/06/17 19:30 04/08/17 00:27 (Ativan Inj) 1 mg Q4H PRN IV PUSH 04/06/17 19:30 04/07/17 15:37 (Ativan) 2 mg Q2H PRN PO 04/06/17 19:30 04/07/17 22:35 (Ativan Inj) 2 mg Q2H PRN IV PUSH 04/06/17 19:30 (Ativan Inj) 2 mg Q1H PRN IV PUSH 04/06/17 19:30 (Ativan Inj) 2 mg Q15M PRN IV PUSH 04/06/17 19:30 (Haldol Inj) 2 mg Q15M PRN IM 04/06/17 19:30 Ceftriaxone Sodium 1000 mg/ Sodium Chloride 100 ml @ 200 mls/hr Q24H IV 04/06/17 20:00 04/07/17 22:17 (Pepcid Inj) 20 mg Q12H IV PUSH 04/06/17 21:00 04/07/17 22:12 (Norvasc) 2.5 mg DAILY PO 04/07/17 09:00 04/07/17 08:51 (CeleXA) 10 mg DAILY PO 04/07/17 09:00 04/07/17 08:51 (Catapres) 0.1 mg BID PO 04/06/17 21:00 04/07/17 21:58 (Synthroid) 125 mcg DAILY PO 04/07/17 09:00 04/07/17 08:52 (Carafate) 1 gm TID PO 04/07/17 09:00 04/07/17 18:02 (Pill Splitter) 1 ea UNSCH PRN OTHER 04/06/17 21:00 (Tums Chew) 500 mg Q12HR CHEW 04/07/17 21:00 04/07/17 21:58 A/P Problem List: (1) Pancreatitis ICD Code: K85.90 - Acute pancreatitis without necrosis or infection, unspecified (2) UTI (urinary tract infection) ICD Code: N39.0 - Urinary tract infection, site not specified (3) Rhabdomyolysis ICD Code: M62.82 - Rhabdomyolysis (4) Alcohol abuse ICD Code: F10.10 - Alcohol abuse, uncomplicated Assessment and Plan 46-year-old female with a PMH of Anxiety, Depression, Bipolar Disorder, HTN, Alcohol Abuse and Cocaine Abuse who presented to the ER with complaints of abdominal pain addition to nausea and vomiting. Acute Pancreatitis: c/o abdominal pain, nausea/vomiting x6 months, now w/ worsening symptoms. Lipase 692. CT Abd/Pelvis w/ severe fatty infiltration of liver, no acute findings, images reviewed by me. Continue Protonix IV, IVF, analgesics/antiemetics as needed. Repeat labs pending. Patient requested regular meal last night, however vomited overnight, will put back on clear liquid diet. UTI: U/a w/ UTI. Start IV Rocephin, continue IVF. Monitor urine culture. Mild Rhabdomyolysis: CPK 667. H/o Cocaine, Urine Drug Screen negative. Give IVF, check serial CPK, trending down. Alcohol Abuse: CIWA, Seizure Precautions, MVT/Thiamine/Folate replacement. DVT Prophylaxis: SCD/Teds. Discharge Planning Patient does not feel ready for discharge. Reports episodes of vomiting overnight, unwitnessed. She is homeless and does not have anywhere to go for [place]. Florence Dowell PA-C Apr 08, 2017 8:18 am
[2017-04-08] MEDS: MULTIVITAMINS/MINERALS THERAPEUTIC TAB PO SCH (08:44)
[2017-04-08] MEDS: SUCRALFATE 1 GM TAB PO SCH ×3 (08:44→20:14)
[2017-04-08] MEDS: CALCIUM CARBONATE 500 MG CHEWABLE TAB CHEW SCH ×2 (08:44→20:18)
[2017-04-08] MEDS: FOLIC ACID 1 MG TAB PO SCH (08:44)
[2017-04-08] MEDS: cloNIDine HCL 0.1 MG TAB PO SCH ×2 (08:45→20:14)
[2017-04-08] MEDS: CITALOPRAM HYDROBROMIDE 20 MG TAB PO SCH (08:46)
[2017-04-08] MEDS: LEVOTHYROXINE SODIUM 125 MCG TAB PO SCH (08:47)
[2017-04-08] MEDS: THIAMINE HCL 100 MG TAB PO SCH (08:47)
[2017-04-08] MEDS: amLODIPine BESYLATE 5 MG TAB PO SCH (08:47)
[2017-04-08] MEDS: FAMOTIDINE 20 MG/2 ML VIAL IV PUSH SCH ×2 (08:48→20:18)
[2017-04-08 08:50] LABS: BICARBONATE 23.5 MEQ/L (21.0-32.0); POTASSIUM 3.8 MEQ/L (3.5-5.1)
[2017-04-08] MEDS ORDERED: ENALAPRILAT 1.25 MG/ML VIAL IV PUSH PRN (09:15)
[2017-04-08 10:22] LABS: CKMB 1.9 NG/ML (0.5-3.6)
[2017-04-08] MEDS: ONDANSETRON HCL 4 MG/2 ML VIAL IVP PRN (12:08)
[2017-04-08] MEDS: LORazepam 2 MG TAB PO PRN (13:13)
[2017-04-08] MEDS ORDERED: amLODIPine BESYLATE 5 MG TAB PO ONE ×2 (13:45)
[2017-04-08] MEDS: cefTRIAXone INJ 1,000 MG in SODIUM CHLORIDE 0.9% INJ 100 ML IV SCH (20:14)
[2017-04-09] VITALS (7 sets, daily range): BP systolic 146–189; BP diastolic 79–109; PULSE 52–77; RESP 17–20; TEMP 98.2–99.7; O2SAT 96–100
[2017-04-09] MEDS: MORPHINE SULFATE 4 MG/ML INJ IV PRN ×2 (00:10→04:49)
[2017-04-09 04:58] LABS: BICARBONATE 25.2 MEQ/L (21.0-32.0); POTASSIUM 3.9 MEQ/L (3.5-5.1)
[2017-04-09] MEDS ORDERED: amLODIPine BESYLATE 5 MG TAB PO SCH (09:00)
[2017-04-09] MEDS: CALCIUM CARBONATE 500 MG CHEWABLE TAB CHEW SCH ×2 (09:58→22:01)
[2017-04-09] MEDS: SUCRALFATE 1 GM TAB PO SCH ×3 (09:59→19:51)
[2017-04-09] MEDS: LEVOTHYROXINE SODIUM 125 MCG TAB PO SCH (09:59)
[2017-04-09] MEDS: cloNIDine HCL 0.1 MG TAB PO SCH ×2 (09:59→22:01)
[2017-04-09] MEDS: FOLIC ACID 1 MG TAB PO SCH (10:01)
[2017-04-09] MEDS: CITALOPRAM HYDROBROMIDE 20 MG TAB PO SCH (10:01)
[2017-04-09] MEDS: MULTIVITAMINS/MINERALS THERAPEUTIC TAB PO SCH (10:03)
[2017-04-09] MEDS: THIAMINE HCL 100 MG TAB PO SCH (10:03)
[2017-04-09] MEDS: NS + KCL 20 MEQ INJ 1,000 ML IV SCH ×3 (11:13→22:24)
[2017-04-09] MEDS: FAMOTIDINE 20 MG/2 ML VIAL IV PUSH SCH ×2 (11:14→22:02)
--- NOTE | 2017-04-09 15:01 | HHI.PR ---
Subjective Remarks Follow up for pancreatitis. Patient is doing well. Still has some nausea. However, she feels that she can try to advance her diet. No fever, chills. Objective Vitals Vital Signs Date Time Temp Pulse Resp B/P (MAP) Pulse Ox O2 Delivery O2 Flow Rate FiO2 04/09/17 12:33 98.2 52 18 161/96 (117) 98 04/09/17 07:25 77 19 172/79 (110) 98 04/09/17 04:54 12 04/09/17 04:29 98.2 60 17 146/102 (117) 100 04/09/17 02:37 58 18 148/98 (115) 99 04/08/17 23:50 98.4 62 17 161/102 (121) 10 04/08/17 20:13 98.4 67 18 178/113 (134) 100 04/08/17 17:17 98.1 70 18 161/97 (118) 100 Result Diagram: 04/07/17 1132 04/09/17 0425 Imaging Last Impressions Abdomen/Pelvis CT 04/06/17 0000 Signed Impressions: Service Date/Time: Thursday, April 06, 2017 19:15 - CONCLUSION: 1. Severe fatty infiltration of the liver. Previous cholecystectomy. No acute findings within the abdomen and pelvis. Presumed nabothian cysts in the cervical region. 2. Small hiatal hernia. Floyd Fernandez MD Objective Remarks GENERAL: Alert, Oriented x 3, NAD. SKIN: Warm and dry. HEAD: Normocephalic. EYES: No scleral icterus. No injection or drainage. NECK: Supple, trachea midline. No JVD or lymphadenopathy. CARDIOVASCULAR: Regular rate and rhythm without murmurs, gallops, or rubs. RESPIRATORY: Breath sounds equal bilaterally. No accessory muscle use. GASTROINTESTINAL: Abdomen soft, non-tender, nondistended. MUSCULOSKELETAL: No cyanosis, or edema. BACK: Nontender without obvious deformity. No CVA tenderness. Procedures None. A/P Problem List: (1) Pancreatitis ICD Code: K85.90 - Acute pancreatitis without necrosis or infection, unspecified (2) UTI (urinary tract infection) ICD Code: N39.0 - Urinary tract infection, site not specified (3) Rhabdomyolysis ICD Code: M62.82 - Rhabdomyolysis (4) Alcohol abuse ICD Code: F10.10 - Alcohol abuse, uncomplicated Assessment and Plan 46-year-old female with a PMH of Anxiety, Depression, Bipolar Disorder, HTN, Alcohol Abuse and Cocaine Abuse who presented to the ER with complaints of abdominal pain addition to nausea and vomiting. Acute Pancreatitis: c/o abdominal pain, nausea/vomiting x6 months, now w/ worsening symptoms. Lipase 692. CT Abd/Pelvis w/ severe fatty infiltration of liver, no acute findings, images reviewed by me. Continue Protonix IV, IVF, analgesics/antiemetics as needed. Will advance diet today. If tolerates well, we will discharge patient home in the AM on 04/10/2017. Suspected UTI - cx shows mixed justin. Will d/c Abx. Mild Rhabdomyolysis: CPK 667 - improved to 331. H/o Cocaine, Urine Drug Screen negative. Continue IV fluid. Alcohol Abuse: CIWA, Seizure Precautions, MVT/Thiamine/Folate replacement. DVT Prophylaxis: SCD/Teds. Florencia Eldridge DO Apr 09, 2017 3:01 pm
[2017-04-09] MEDS: ONDANSETRON HCL 4 MG/2 ML VIAL IVP PRN (22:24)
[2017-04-10] VITALS (8 sets, daily range): BP systolic 130–190; BP diastolic 84–109; PULSE 45–83; RESP 16–19; TEMP 97.9–98.9; O2SAT 96–100
[2017-04-10] MEDS ORDERED: IOHEXOL 350 MG/ML 10 ML VIAL (for RAD DIAG) IVCONTRAST ONE (02:06)
--- NOTE | 2017-04-10 02:26 | RADRPT ---
EXAM DATE/TIME: 04/10/2017 01:58 [facility] COMPARISON: No previous studies available for comparison. INDICATIONS : Epigastric and back pain. IV CONTRAST: 71 cc Omnipaque 350 (iohexol) IV RADIATION DOSE: 23.80 CTDIvol (mGy) MEDICAL HISTORY : Cardiovascular disease. Hypertension. Pancreatitis. SURGICAL HISTORY : Cholecystectomy. ENCOUNTER: Initial ACUITY: 1 day PAIN SCALE: 4/10 LOCATION: chest TECHNIQUE: Volumetric scanning was performed using a multi-row detector CT scanner. The data was post processed with a variety of visualization algorithms including full volume maximum intensity projection, multi -planar sliding thin slab reformation, curved planar reformation, and surface rendering techniques. Using automated exposure control and adjustment of the mA and/or kV according to patient size, radiat ion dose was kept as low as reasonably achievable to obtain optimal diagnostic quality images. DICOM format image data is available electronically for review and comparison. FINDINGS: Aorta is negative for aneurysm or dissection. Lungs are clear except for minimal dependent atelectasi s. Trace pleural fluid bilaterally. Small hiatal hernia. No pericardial effusion. Fatty liver. Spleen, adrenals, kidneys and pancreas unremarkable. Previous cholecystectomy. Trace katey e fluid in the pelvis. No bowel obstruction or free air. No acute bony abnormalities. CONCLUSION: 1. Negative for aortic aneurysm or dissection. Trace pleural effusions and trace free fluid in the ab domen and pelvis. Fatty liver. Cholecystectomy. Floyd Fernandez MD on April 10, 2017 at 2:19 Board Certified Radiologist. This report was verified electronically.
[2017-04-10] MEDS ORDERED: ACETAMINOPHEN/HYDROcodone 325 MG/5 MG TAB PO ONE (06:00)
[2017-04-10] MEDS: ONDANSETRON HCL 4 MG/2 ML VIAL IVP PRN (06:21)
[2017-04-10] MEDS: SUCRALFATE 1 GM TAB PO SCH ×3 (09:33→18:31)
[2017-04-10] MEDS: CALCIUM CARBONATE 500 MG CHEWABLE TAB CHEW SCH ×2 (09:33→22:25)
[2017-04-10] MEDS: FAMOTIDINE 20 MG/2 ML VIAL IV PUSH SCH ×2 (09:33→21:00)
[2017-04-10] MEDS: LEVOTHYROXINE SODIUM 125 MCG TAB PO SCH (09:34)
[2017-04-10] MEDS: THIAMINE HCL 100 MG TAB PO SCH (09:34)
[2017-04-10] MEDS: FOLIC ACID 1 MG TAB PO SCH (09:34)
[2017-04-10] MEDS: cloNIDine HCL 0.1 MG TAB PO SCH ×2 (09:34→22:25)
[2017-04-10] MEDS: MULTIVITAMINS/MINERALS THERAPEUTIC TAB PO SCH (09:34)
[2017-04-10] MEDS: CITALOPRAM HYDROBROMIDE 20 MG TAB PO SCH (09:34)
--- NOTE | 2017-04-10 09:34 | HHI.PR ---
Subjective Remarks Follow up for pancreatitis. Patient reports nausea, vomiting throughout the night. No fever, chills. Objective Vitals Vital Signs Date Time Temp Pulse Resp B/P (MAP) Pulse Ox O2 Delivery O2 Flow Rate FiO2 04/10/17 07:21 98.2 54 16 172/106 (128) 100 04/10/17 06:02 54 19 167/101 (123) 99 04/10/17 05:13 57 19 190/109 (136) 99 04/10/17 03:20 98.7 45 18 177/106 (129) 99 160/105 (123) 04/09/17 23:02 98.4 60 17 183/97 (125) 100 156/95 (115) 04/09/17 21:22 98.3 66 18 189/101 (130) 96 165/86 (112) 04/09/17 16:34 99.7 53 20 176/99 (124) 99 04/09/17 12:33 98.2 52 18 161/96 (117) 98 Result Diagram: 04/07/17 1132 04/09/17 0425 Imaging Last Impressions Aorta CTA 04/10/17 0000 Signed Impressions: Service Date/Time: Monday, April 10, 2017 01:58 - CONCLUSION: 1. Negative for aortic aneurysm or dissection. Trace pleural effusions and trace free fluid in the abdomen and pelvis. Fatty liver. Cholecystectomy. Floyd Fernandez MD Abdomen/Pelvis CT 04/06/17 0000 Signed Impressions: Service Date/Time: Thursday, April 06, 2017 19:15 - CONCLUSION: 1. Severe fatty infiltration of the liver. Previous cholecystectomy. No acute findings within the abdomen and pelvis. Presumed nabothian cysts in the cervical region. 2. Small hiatal hernia. Floyd Fernandez MD Objective Remarks GENERAL: Alert, Oriented x 3, NAD. SKIN: Warm and dry. HEAD: Normocephalic. EYES: No scleral icterus. No injection or drainage. NECK: Supple, trachea midline. No JVD or lymphadenopathy. CARDIOVASCULAR: Regular rate and rhythm without murmurs, gallops, or rubs. RESPIRATORY: Breath sounds equal bilaterally. No accessory muscle use. GASTROINTESTINAL: Abdomen soft, non-tender except epigastric tenderness, nondistended. MUSCULOSKELETAL: No cyanosis, or edema. BACK: Nontender without obvious deformity. No CVA tenderness. Procedures None. A/P Problem List: (1) Pancreatitis ICD Code: K85.90 - Acute pancreatitis without necrosis or infection, unspecified (2) UTI (urinary tract infection) ICD Code: N39.0 - Urinary tract infection, site not specified (3) Rhabdomyolysis ICD Code: M62.82 - Rhabdomyolysis (4) Alcohol abuse ICD Code: F10.10 - Alcohol abuse, uncomplicated Assessment and Plan 46-year-old female with a PMH of Anxiety, Depression, Bipolar Disorder, HTN, Alcohol Abuse and Cocaine Abuse who presented to the ER with complaints of abdominal pain addition to nausea and vomiting. Acute Pancreatitis: c/o abdominal pain, nausea/vomiting x6 months, now w/ worsening symptoms. Lipase 692. CT Abd/Pelvis w/ severe fatty infiltration of liver, no acute findings, images reviewed by me. Continue Famotidine IV, IVF, analgesics/antiemetics as needed. Change diet to full liquid diet today. Will gradually advance diet. Suspected UTI - cx shows mixed justin. Will d/c Abx. Hypertension - Will d/c Norvasc and start Nifedipine 60mg Qday and HCTZ 25mg Qday. Mild Rhabdomyolysis: CPK 667 - improved to 331. H/o Cocaine, Urine Drug Screen negative. Continue IV fluid. Alcohol Abuse: CIWA, Seizure Precautions, MVT/Thiamine/Folate replacement. DVT Prophylaxis: SCD/Teds. Florencia Eldridge DO Apr 10, 2017 09:34
[2017-04-10] MEDS: NIFEdipine 60 MG SUSTAINED RELEASE TAB PO SCH (10:20)
[2017-04-10] MEDS: HYDROCHLOROTHIAZIDE 25 MG TAB PO SCH (10:20)
[2017-04-10] MEDS: NS + KCL 20 MEQ INJ 1,000 ML IV SCH (10:21)
[2017-04-10] MEDS: LORazepam 1 MG TAB PO PRN ×2 (15:35→22:25)
[2017-04-11] VITALS: BP 157/85; PULSE 58; RESP 18; TEMP 97.7; O2SAT 99
[2017-04-11 03:00] VITALS: BP 154/86; PULSE 60; RESP 17; TEMP 97.6; O2SAT 98
[2017-04-11 08:00] VITALS: BP 164/91; PULSE 96; RESP 20; TEMP 98; O2SAT 94
[2017-04-11] MEDS: FAMOTIDINE 20 MG/2 ML VIAL IV PUSH SCH (09:00)
[2017-04-11] MEDS: CALCIUM CARBONATE 500 MG CHEWABLE TAB CHEW SCH (09:04)
[2017-04-11] MEDS: THIAMINE HCL 100 MG TAB PO SCH (09:04)
[2017-04-11] MEDS: NIFEdipine 60 MG SUSTAINED RELEASE TAB PO SCH (09:04)
[2017-04-11] MEDS: SUCRALFATE 1 GM TAB PO SCH (09:04)
[2017-04-11] MEDS: HYDROCHLOROTHIAZIDE 25 MG TAB PO SCH (09:04)
[2017-04-11] MEDS: MULTIVITAMINS/MINERALS THERAPEUTIC TAB PO SCH (09:04)
[2017-04-11] MEDS: cloNIDine HCL 0.1 MG TAB PO SCH (09:04)
[2017-04-11] MEDS: LEVOTHYROXINE SODIUM 125 MCG TAB PO SCH (09:04)
[2017-04-11] MEDS: CITALOPRAM HYDROBROMIDE 20 MG TAB PO SCH (09:04)
[2017-04-11] MEDS: FOLIC ACID 1 MG TAB PO SCH (09:12)
[2017-04-11] MEDS: NS + KCL 20 MEQ INJ 1,000 ML IV SCH (09:12)
[2017-04-11] MEDS ORDERED: NIFE60TA8 PO (09:29)
--- NOTE | 2017-04-11 09:33 | HHI.DS ---
Discharge Summary Admission Date Apr 08, 2017 at 5:15 pm Discharge Date: Apr 11, 2017 Admitting Diagnosis pancreatitis (1) Pancreatitis ICD Code: K85.90 - Acute pancreatitis without necrosis or infection, unspecified (2) UTI (urinary tract infection) ICD Code: N39.0 - Urinary tract infection, site not specified (3) Rhabdomyolysis ICD Code: M62.82 - Rhabdomyolysis (4) Alcohol abuse ICD Code: F10.10 - Alcohol abuse, uncomplicated Procedures None. Brief History - From Admission This is a 46-year-old female with a PMH of Anxiety, Depression, Bipolar Disorder , HTN, Alcohol Abuse and Cocaine Abuse who presented to the ER with complaints of abdominal pain addition to nausea and vomiting. States symptoms been ongoing for the last 6 months, however now symptoms more severe. Drinks daily. Denies fever, chills, cough or chest pain. On arrival, BP 150/102, HR 96, O2 sat 98% on RA, Temp 99.2. CBC essentially unremarkable. Chemistry essentially unremarkable. LFTs elevated, similar comparison to previous. CPK 667. Troponin 0.05. Lipase 692. UA positive for UTI. Urine Drug Screen negative. CT Abd/Pelvis w/ severe fatty infiltration of the liver, no acute findings in the abdomen. CBC/BMP: 04/07/17 1132 04/09/17 0425 Significant Findings Laboratory Tests Test 04/09/17 04:25 Blood Urea Nitrogen 5 MG/DL (7-18) Calcium Level 8.1 MG/DL (8.5-10.1) Lipase 771 U/L (73-393) PE at Discharge GENERAL: Alert, Oriented x 3, NAD. SKIN: Warm and dry. HEAD: Normocephalic. EYES: No scleral icterus. No injection or drainage. NECK: Supple, trachea midline. No JVD or lymphadenopathy. CARDIOVASCULAR: Regular rate and rhythm without murmurs, gallops, or rubs. RESPIRATORY: Breath sounds equal bilaterally. No accessory muscle use. GASTROINTESTINAL: Abdomen soft, non-tender except epigastric tenderness, nondistended. MUSCULOSKELETAL: No cyanosis, or edema. BACK: Nontender without obvious deformity. No CVA tenderness. Pt update on day of discharge Follow up for acute pancreatitis. Patient is doing well. Tolerating diet well. She did not have any nausea vomiting last night on this morning. She is ambulating well. She reports mild gastric pain. She wants to go home. Hospital Course 46-year-old female with a PMH of Anxiety, Depression, Bipolar Disorder, HTN, Alcohol Abuse and Cocaine Abuse who presented to the ER with complaints of abdominal pain addition to nausea and vomiting. Acute Pancreatitis: c/o abdominal pain, nausea/vomiting x6 months, now w/ worsening symptoms. Lipase 692. CT Abd/Pelvis w/ severe fatty infiltration of liver, no acute findings, images reviewed by me. Continue Famotidine IV, IVF, analgesics/antiemetics as needed. Tolerating full liquid diet well. Gradually advance diet. Suspected UTI - cx shows mixed justin. Will d/c Abx. Hypertension - Will d/c Norvasc and start Nifedipine 60mg Qday and HCTZ 25mg Qday. Mild Rhabdomyolysis: CPK 667 - improved to 331. H/o Cocaine, Urine Drug Screen negative. Continue IV fluid. Alcohol Abuse: CIWA, Seizure Precautions, MVT/Thiamine/Folate replacement. DVT Prophylaxis: SCD/Teds. Pt Condition on Discharge: Good Discharge Disposition: Discharge Home Discharge Time: <= 30 minutes Discharge Instructions DIET: Follow Instructions for: Heart Healthy Diet Additional Diet Instructions: Please avoid fatty, greasy food. Eat simple foods. Gradually advance diet. Activities you can perform: Regular-No Restrictions Follow up Referrals: PCP Follow-up - 1 Week New Medications: Nifedipine ER 24 HR (Nifedipine ER 24 HR) 60 Mg Tab 60 MG PO DAILY for Blood Pressure Management, #30 TAB 2 Refills Continued Medications: Citalopram (Citalopram) 10 Mg Tab 10 MG PO DAILY for Control Depression, #30 TAB 0 Refills Clonidine (Clonidine) 0.1 Mg Tab 0.1 MG PO BID for Blood Pressure Management, #60 TAB 0 Refills Hydrochlorothiazide (Hydrochlorothiazide) 25 Mg Tab 25 MG PO DAILY, #30 TAB 0 Refills Levothyroxine (Levothyroxine) 125 Mcg Tab 125 MCG PO DAILY for Thyroid, #30 TAB 0 Refills Ondansetron (Ondansetron) 8 Mg Tab 4 MG PO Q8HR PRN for NAUSEA, TAB 0 Refills Ranitidine (Ranitidine) 150 Mg Cap 150 MG PO DAILY, #30 CAP 0 Refills Sucralfate (Sucralfate) 1 Gram Tab 1 GM PO TID for Duodenal ulcer, #90 TAB 0 Refills on empty stomach Discontinued Medications: Amlodipine (Amlodipine) 2.5 Mg Tab 2.5 MG PO DAILY for Blood Pressure Management, #30 TAB 0 Refills Florencia Eldridge DO Apr 11, 2017 09:33
[2017-05-14] MEDS ORDERED: GNP100TA3 PO (13:29)
[2017-05-14] MEDS ORDERED: FOLI1TAB6 PO (13:29)
[2017-05-14] MEDS ORDERED: THERM PO (13:29)
== END 2017-04-11 10:00 | disposition home or self-care (01) | DRG 439 ==
LOC: NEPE 16:38 → INTOOBSV 19:00 → NEDA 19:00 → NEPGCP 21:03 → OBSVTOIN 04-08 17:15 → N07B 04-10 18:46
PROVIDERS: ADMIT Hospitalist; ATTEND Hospitalist
DX: K85.90 Acute pancreatitis without necrosis or infection, unspecified (principal); M62.82 Rhabdomyolysis; K76.0 Fatty (change of) liver, not elsewhere classified; N39.0 Urinary tract infection, site not specified; F20.9 Schizophrenia, unspecified; I10 Essential (primary) hypertension; F31.9 Bipolar disorder, unspecified; F10.10 Alcohol abuse, uncomplicated; R19.7 Diarrhea, unspecified; Z59.0 Homelessness; Z23 Encounter for immunization
CPT/HCPCS: 71275; 74174; 74177; 80048; 80053; 80307; 81001; 82550; 82552; 82948; 83690; 84484; 84703; 85025; 87086; 90471; 90732; 93005; 96361; 96374; G0009; J0610; J0696; J2060; J2270; J2405; J3480; J7030; Q9967

== ENCOUNTER 2017-04-15 14:10 | Emergency (ER) | payer MEDICARE, OTHER ==
[~2017-04-15 14:10] MED LIST changes: +CITA10TA4 PO; +CLON0.1T PO; +HYDR25TA5 PO; -IBUP800T23 PO; +LEVO125T4 PO; +NIFE60TA8 PO; +ONDA1TAB17 PO; +RANI150C PO; +SUCR1TAB PO
[2017-04-15 14:18] VITALS: BP 150/81; PULSE 93; RESP 17; TEMP 98.7; O2SAT 96
--- NOTE | 2017-04-15 14:32 | PD ---
HPI . abdominal pain Chief Complaint: Abdominal Pain Time Seen by Provider: 14:32 Travel History International Travel<30 days: No Contact w/Intl Traveler<30days: No Traveled to known affect area: No History of Present Illness HPI 46-year-old female who was recently discharged from the hospital due to pancreatitis here with similar complaints. Patient tells me she has exactly the same symptoms she had several days ago. She admits to drinking beer every day. She tells me that she is able to drink beer, but does not like eating foods and has a difficult time tolerating oral intake other than beers. She is not complaining of moderate abdominal pain. She is currently intoxicated and is not a good historian. She is almost falling over in the bed. She denies any chest pain or shortness of breath. PFSH Past Medical History Anemia: Yes Blood Disorders: Yes (ANEMIA) Bipolar Disorder: Yes Anxiety: Yes Depression: Yes Heart Rhythm Problems: No Cancer: No Cardiac Catheterization: No Cardiovascular Problems: Yes High Cholesterol: Yes Chest Pain: Yes Congestive Heart Failure: No Diabetes: No Diminished Hearing: No Endocrine: No Gastrointestinal Disorders: No GERD: Yes Genitourinary: No Hypertension: Yes Immune Disorder: No Musculoskeletal: No Neurologic: Yes Psychiatric: No Reproductive: No Respiratory: No Migraines: Yes Myocardial Infarction: No Renal Failure: No Schizophrenia: Yes Ulcer: No : 2 Para: 1 : 1 Past Surgical History Abdominal Surgery: Yes (gallbladder) Cholecystectomy: Yes Coronary Artery Bypass Graft: No Social History Alcohol Use: Yes (EVERYDAY; BEER, LIQUOR "A LOT") Tobacco Use: No Substance Use: No Allergies-Medications (Allergen,Severity, Reaction): Coded Allergies: No Known Allergies (Verified , 04/15/17) Reported Meds & Prescriptions Reported Meds & Active Scripts Active Nifedipine ER 24 HR (Nifedipine) 60 Mg Tab 60 Mg PO DAILY Reported Hydrochlorothiazide 25 Mg Tab 25 Mg PO DAILY Levothyroxine (Levothyroxine Sodium) 125 Mcg Tab 125 Mcg PO DAILY Ondansetron (Ondansetron HCl) 8 Mg Tab 4 Mg PO Q8HR PRN Clonidine (Clonidine HCl) 0.1 Mg Tab 0.1 Mg PO BID Citalopram (Citalopram Hydrobromide) 10 Mg Tab 10 Mg PO DAILY Ranitidine (Ranitidine HCl) 150 Mg Cap 150 Mg PO DAILY Sucralfate 1 Gram Tab 1 Gm PO TID on empty stomach Review of Systems ROS Limitations: Intoxication, Poor Historian General / Constitutional: No: Fever Eyes: No: Visual changes HENT: No: Headaches Cardiovascular: No: Chest Pain or Discomfort Respiratory: No: Shortness of Breath Gastrointestinal: Positive: Nausea, Abdominal Pain Genitourinary: No: Dysuria Musculoskeletal: No: Pain Skin: No Rash Neurologic: No: Weakness Psychiatric: No: Depression Endocrine: No: Polydipsia Hematologic/Lymphatic: No: Easy Bruising Physical Exam Narrative GENERAL: AAO x 3, no acute distress, Well-nourished, well-developed patient. SKIN: Warm and dry. No visible rashes or bruising. HEAD: Normocephalic and atraumatic. EYES: No scleral icterus. No injection or drainage. ENT: No nasal drainage noted. Mucous membranes pink. Airway patent. NECK: Supple, trachea midline. No JVD. CARDIOVASCULAR: Regular rate and rhythm without murmurs, gallops, or rubs. RESPIRATORY: Breath sounds equal bilaterally. No accessory muscle use. No rhonchi or rales. GASTROINTESTINAL: Abdomen soft, non-tender, nondistended. no rebound or guarding EXTREMITIES: No cyanosis or edema. BACK: No obvious deformity. No CVA tenderness. NEURO: grossly intact, responds appropriately PSYCH:intoxicated, difficult to assess Data Data Last Documented VS Vital Signs Date Time Temp Pulse Resp B/P (MAP) Pulse Ox O2 Delivery O2 Flow Rate FiO2 04/15/17 15:03 99 Room Air 04/15/17 14:18 98.7 93 17 Orders Orders Complete Blood Count With Diff (04/15/17 14:36) Comprehensive Metabolic Panel (04/15/17 14:36) Lipase (04/15/17 14:36) Iv Access Insert/Monitor (04/15/17 14:36) Ecg Monitoring (04/15/17 14:36) Oximetry (04/15/17 14:36) Sodium Chloride 0.9% Flush (Ns Flush) (04/15/17 14:45) Sodium Chlor 0.9% 1000 Ml Inj (Ns 1000 M (04/15/17 14:45) Alcohol (Ethanol) (04/15/17 14:45) Labs Laboratory Tests Test 04/15/17 14:45 White Blood Count 4.1 TH/MM3 Red Blood Count 3.93 MIL/MM3 Hemoglobin 12.1 GM/DL Hematocrit 34.9 % Mean Corpuscular Volume 88.8 FL Mean Corpuscular Hemoglobin 30.8 PG Mean Corpuscular Hemoglobin Concent 34.7 % Red Cell Distribution Width 15.2 % Platelet Count 304 TH/MM3 Mean Platelet Volume 7.7 FL Neutrophils (%) (Auto) 47.4 % Lymphocytes (%) (Auto) 36.1 % Monocytes (%) (Auto) 13.6 % Eosinophils (%) (Auto) 2.5 % Basophils (%) (Auto) 0.4 % Neutrophils # (Auto) 1.9 TH/MM3 Lymphocytes # (Auto) 1.5 TH/MM3 Monocytes # (Auto) 0.6 TH/MM3 Eosinophils # (Auto) 0.1 TH/MM3 Basophils # (Auto) 0.0 TH/MM3 CBC Comment DIFF FINAL Differential Comment Blood Urea Nitrogen 9 MG/DL Creatinine 0.92 MG/DL Random Glucose 110 MG/DL Total Protein 8.8 GM/DL Albumin 3.4 GM/DL Calcium Level 8.3 MG/DL Alkaline Phosphatase 88 U/L Aspartate Amino Transf (AST/SGOT) 160 U/L Alanine Aminotransferase (ALT/SGPT) 98 U/L Total Bilirubin 0.3 MG/DL Sodium Level 142 MEQ/L Potassium Level 3.8 MEQ/L Chloride Level 108 MEQ/L Carbon Dioxide Level 24.7 MEQ/L Anion Gap 9 MEQ/L Estimat Glomerular Filtration Rate 80 ML/MIN Lipase 433 U/L Ethyl Alcohol Level 302 MG/DL MDM Medical Decision Making Medical Screen Exam Complete: Yes Emergency Medical Condition: Yes Medical Record Reviewed: Yes Differential Diagnosis pancreatitis, alcohol abuse, malingering Narrative Course 46-year-old female here with abdominal pain. Appears patient has another bout of pancreatitis due to alcoholism. Labs and IV access have been obtained. I do not believe imaging would be helpful. Patient recently had a CT scan on April 06. She also had aorta CTA done on April 10. Both of these tests were fairly unremarkable. Laboratory Tests Test 04/15/17 14:45 White Blood Count 4.1 TH/MM3 Red Blood Count 3.93 MIL/MM3 Hemoglobin 12.1 GM/DL Hematocrit 34.9 % Mean Corpuscular Volume 88.8 FL Mean Corpuscular Hemoglobin 30.8 PG Mean Corpuscular Hemoglobin Concent 34.7 % Red Cell Distribution Width 15.2 % Platelet Count 304 TH/MM3 Mean Platelet Volume 7.7 FL Neutrophils (%) (Auto) 47.4 % Lymphocytes (%) (Auto) 36.1 % Monocytes (%) (Auto) 13.6 % Eosinophils (%) (Auto) 2.5 % Basophils (%) (Auto) 0.4 % Neutrophils # (Auto) 1.9 TH/MM3 Lymphocytes # (Auto) 1.5 TH/MM3 Monocytes # (Auto) 0.6 TH/MM3 Eosinophils # (Auto) 0.1 TH/MM3 Basophils # (Auto) 0.0 TH/MM3 CBC Comment DIFF FINAL Differential Comment Blood Urea Nitrogen 9 MG/DL Creatinine 0.92 MG/DL Random Glucose 110 MG/DL Total Protein 8.8 GM/DL Albumin 3.4 GM/DL Calcium Level 8.3 MG/DL Alkaline Phosphatase 88 U/L Aspartate Amino Transf (AST/SGOT) 160 U/L Alanine Aminotransferase (ALT/SGPT) 98 U/L Total Bilirubin 0.3 MG/DL Sodium Level 142 MEQ/L Potassium Level 3.8 MEQ/L Chloride Level 108 MEQ/L Carbon Dioxide Level 24.7 MEQ/L Anion Gap 9 MEQ/L Estimat Glomerular Filtration Rate 80 ML/MIN Lipase 433 U/L Ethyl Alcohol Level 302 MG/DL I reviewed the patient's labs. She appears intoxicated as I suspected. Her lipase is actually improved compared to prior to discharge which was in the 700s. She'll sleep off and then be discharged home when she gloria up and is able to ambulate. I have discussed with my attending Dr. Mazariegos who is in agreement. Diagnosis Primary Impression: Alcohol abuse Patient Instructions: General Instructions Disposition: 01 DISCHARGE HOME Condition: Stable Dalia King Apr 15, 2017 14:32
[2017-04-15] MEDS ORDERED: SODIUM CHLORIDE 0.9% FLUSH 10 ML FLUSH IV FLUSH PRN (14:45)
[2017-04-15] MEDS ORDERED: SODIUM CHLOR 0.9% 1000 ML INJ 1,000 ML IV ONE (14:45)
[2017-04-15 15:03] VITALS: O2SAT 99
[2017-04-15 15:07] LABS: AUTOMATED NEUTROPHIL # 1.9 TH/MM3 (1.8-7.7); BASOPHIL % 0.4 % (0.0-2.0); EOSINOPHIL # 0.1 TH/MM3 (0-0.4); EOSINOPHIL % 2.5 % (0.0-4.0); HEMATOCRIT 34.9 % (35.0-46.0); HEMO FLAGS DIFF FINAL; LYMPH % 36.1 % (9.0-44.0); LYMPHOCYTE # 1.5 TH/MM3 (1.0-4.8); MEAN CELL VOLUME 88.8 FL (80.0-100.0); MEAN CORPUSCULAR HEMOGLOBIN 30.8 PG (27.0-34.0); MEAN CORPUSCULAR HGB CONC 34.7 % (32.0-36.0); MONO % 13.6 % (0.0-8.0); NEUT % 47.4 % (16.0-70.0); PLATELET COUNT 304 TH/MM3 (150-450); RED BLOOD COUNT 3.93 MIL/MM3 (4.00-5.30); RED CELL DISTRIBUTION WIDTH 15.2 % (11.6-17.2); WHITE BLOOD COUNT 4.1 TH/MM3 (4.0-11.0)
[2017-04-15 15:24] LABS: ALKALINE PHOSPHATASE 88 U/L (45-117); ALT (GPT) 98 U/L (10-53); ANION GAP 9 MEQ/L (5-15); AST (GOT) 160 U/L (15-37); BICARBONATE 24.7 MEQ/L (21.0-32.0); BLOOD UREA NITROGEN 9 MG/DL (7-18); CHLORIDE 108 MEQ/L (98-107); GLOMERULAR FILTRATION RATE 80 ML/MIN (>89); POTASSIUM 3.8 MEQ/L (3.5-5.1); SODIUM (NA) 142 MEQ/L (136-145); TOTAL BILIRUBIN ADULT 0.3 MG/DL (0.2-1.0)
[2017-04-15 15:50] LABS: ALCOHOL 302 MG/DL (0-5)
--- NOTE | 2017-04-15 18:25 | PD ---
Physical Exam Date Seen by Provider: Apr 15, 2017 Time Seen by Provider: 18:24 Narrative Patient is now sober and annular 3. She is requesting to go home. Data Data Last Documented VS Vital Signs Date Time Temp Pulse Resp B/P (MAP) Pulse Ox O2 Delivery O2 Flow Rate FiO2 04/15/17 15:03 99 Room Air 04/15/17 14:18 98.7 93 17 Orders Orders Complete Blood Count With Diff (04/15/17 14:36) Comprehensive Metabolic Panel (04/15/17 14:36) Lipase (04/15/17 14:36) Iv Access Insert/Monitor (04/15/17 14:36) Ecg Monitoring (04/15/17 14:36) Oximetry (04/15/17 14:36) Sodium Chloride 0.9% Flush (Ns Flush) (04/15/17 14:45) Sodium Chlor 0.9% 1000 Ml Inj (Ns 1000 M (04/15/17 14:45) Alcohol (Ethanol) (04/15/17 14:45) Labs Laboratory Tests Test 04/15/17 14:45 White Blood Count 4.1 TH/MM3 Red Blood Count 3.93 MIL/MM3 Hemoglobin 12.1 GM/DL Hematocrit 34.9 % Mean Corpuscular Volume 88.8 FL Mean Corpuscular Hemoglobin 30.8 PG Mean Corpuscular Hemoglobin Concent 34.7 % Red Cell Distribution Width 15.2 % Platelet Count 304 TH/MM3 Mean Platelet Volume 7.7 FL Neutrophils (%) (Auto) 47.4 % Lymphocytes (%) (Auto) 36.1 % Monocytes (%) (Auto) 13.6 % Eosinophils (%) (Auto) 2.5 % Basophils (%) (Auto) 0.4 % Neutrophils # (Auto) 1.9 TH/MM3 Lymphocytes # (Auto) 1.5 TH/MM3 Monocytes # (Auto) 0.6 TH/MM3 Eosinophils # (Auto) 0.1 TH/MM3 Basophils # (Auto) 0.0 TH/MM3 CBC Comment DIFF FINAL Differential Comment Blood Urea Nitrogen 9 MG/DL Creatinine 0.92 MG/DL Random Glucose 110 MG/DL Total Protein 8.8 GM/DL Albumin 3.4 GM/DL Calcium Level 8.3 MG/DL Alkaline Phosphatase 88 U/L Aspartate Amino Transf (AST/SGOT) 160 U/L Alanine Aminotransferase (ALT/SGPT) 98 U/L Total Bilirubin 0.3 MG/DL Sodium Level 142 MEQ/L Potassium Level 3.8 MEQ/L Chloride Level 108 MEQ/L Carbon Dioxide Level 24.7 MEQ/L Anion Gap 9 MEQ/L Estimat Glomerular Filtration Rate 80 ML/MIN Lipase 433 U/L Ethyl Alcohol Level 302 MG/DL [facility] Medical Record Reviewed: Yes Supervised Visit with ALANNAH: No Differential Diagnosis Alcohol abuse, pancreatitis Diagnosis Primary Impression: Alcohol abuse Patient Instructions: General Instructions Additional Instruction: Please refrain from drinking too much alcohol. Med/Other Pt SpecificInfo: No Meds Exist/No RX given Disposition: 01 DISCHARGE HOME Condition: Stable Dalia King Apr 15, 2017 18:25
[2017-05-14] MEDS ORDERED: THERM PO (13:29)
[2017-05-14] MEDS ORDERED: FOLI1TAB6 PO (13:29)
[2017-05-14] MEDS ORDERED: GNP100TA3 PO (13:29)
== END 2017-04-15 18:49 | disposition home or self-care (01) ==
LOC: NEPD 14:10
DX: F10.10 Alcohol abuse, uncomplicated (principal); F41.9 Anxiety disorder, unspecified; K21.9 Gastro-esophageal reflux disease without esophagitis; I10 Essential (primary) hypertension
CPT/HCPCS: 80053; 80307; 83690; 85025; 96360; 99284; J7030

== ENCOUNTER 2017-04-18 17:22 | Emergency (ER) | payer MEDICARE, OTHER ==
[~2017-04-18] VITALS: Ht 160 cm; Wt 90.0 kg
[2017-04-18 17:47] VITALS: BP 189/123; PULSE 99; RESP 24; TEMP 97.7; O2SAT 94
--- NOTE | 2017-04-18 17:57 | PD ---
Physical Exam Date Seen by Provider: Apr 18, 2017 Time Seen by Provider: 17:55 Narrative 46-year-old black female presents to emergency department by EMS for evaluation of abdominal pain, nausea, vomiting 2, epistaxis. Patient admits to alcohol. Vital signs reviewed. Awaiting bed placement Data Data Last Documented VS Vital Signs Date Time Temp Pulse Resp B/P (MAP) Pulse Ox O2 Delivery O2 Flow Rate FiO2 04/18/17 17:47 97.7 99 24 189/123 (145) 94 Room Air Orders Orders Iv Access Insert/Monitor (04/18/17 17:58) Ed Urine Pregnancytest Poc (04/18/17 17:58) Complete Blood Count With Diff (04/18/17 18:26) Comprehensive Metabolic Panel (04/18/17 18:26) Lipase (04/18/17 18:26) Lactic Acid (04/18/17 18:26) Prothrombin Time / Inr (Pt) (04/18/17 18:26) Act Partial Throm Time (Ptt) (04/18/17 18:26) Urinalysis - C+S If Indicated (04/18/17 18:26) Us Abdomen Gallbladder (04/18/17 ) Iv Access Insert/Monitor (04/18/17 18:26) Ecg Monitoring (04/18/17 18:26) Oximetry (04/18/17 18:26) Pantoprazole Inj (Protonix Inj) (04/18/17 18:30) Sodium Chlor 0.9% 1000 Ml Inj (Ns 1000 M (04/18/17 18:26) Famotidine Inj (Pepcid Inj) (04/18/17 18:30) [facility] Medical Record Reviewed: No Supervised Visit with ALANNAH: Floyd Lomas Apr 18, 2017 17:57
[2017-04-18] MEDS ORDERED: SODIUM CHLOR 0.9% 1000 ML INJ 1,000 ML IV SCH (18:26)
[2017-04-18] MEDS ORDERED: FAMOTIDINE 20 MG/2 ML VIAL IV PUSH ONE (18:30)
[2017-04-18] MEDS ORDERED: PANTOPRAZOLE SODIUM 40 MG VIAL IVP ONE (18:30)
[2017-04-18 19:16] VITALS: BP 164/117; PULSE 80; RESP 18; RESP 20; O2SAT 100
--- NOTE | 2017-04-18 19:16 | RADRPT ---
EXAM DATE/TIME: 04/18/2017 18:32 [facility] COMPARISON: No previous studies available for comparison. INDICATIONS : Right upper quadrant pain. MEDICAL HISTORY : Hypertension. Cardiovascular disease Hypercholesterolemia. Pancreatitis. GERD. Fatty liver. Anemia. E SAIRA abuse. SURGICAL HISTORY : Cholecystectomy. ENCOUNTER: Initial ACUITY: 1 year PAIN SCORE: 10/10 LOCATION: Right upper quadrant MEASUREMENTS: LIVER: 16.3 cm length COMMON DUCT: 4 mm RIGHT KIDNEY: 11.7 x 5.4 x 3.8 cm FINDINGS: The liver is enlarged and demonstrates diffuse fatty infiltration. No focal hepatic mass is noted. No biliary ductal dilatation is noted. The common bile duct is normal in caliber and measures 4 mm. Pat ient is status post cholecystectomy. There is limited visualization of pancreas due to shadowing tracie l gas. The right kidney is unremarkable. CONCLUSION: 1. Enlarged fatty liver. 2. Limited visualization of pancreas due to shadowing bowel gas. Lev Perea MD on April 18, 2017 at 19:13 Board Certified Radiologist. This report was verified electronically.
[2017-04-18 19:41] LABS: BLOOD, URINE NEG (NEG); COMMENT (UR) CULT NOT INDICATED; CULTURE IF INDICATED CULT NOT INDICATED; GLUCOSE,URINE NEG (NEG); KETONE, URINE NEG (NEG); MUCUS URINE FEW /lpf (OCC); NITRITE,URINE NEG (NEG); SQUAMOUS EPITHELIAL CELL URINE 7 /hpf (0-5); URINE COLOR YELLOW (YELLW/STRAW)
[2017-04-18 19:51] LABS: AUTOMATED NEUTROPHIL # 1.8 TH/MM3 (1.8-7.7); BASOPHIL # 0.1 TH/MM3 (0-0.2); BASOPHIL % 1.5 % (0.0-2.0); EOSINOPHIL # 0.1 TH/MM3 (0-0.4); EOSINOPHIL % 2.6 % (0.0-4.0); HEMATOCRIT 39.9 % (35.0-46.0); HEMO FLAGS DIFF FINAL; LYMPH % 43.5 % (9.0-44.0); MEAN CELL VOLUME 89.9 FL (80.0-100.0); MEAN CORPUSCULAR HEMOGLOBIN 29.7 PG (27.0-34.0); MONO % 13.1 % (0.0-8.0); NEUT % 39.3 % (16.0-70.0); PLATELET COUNT 387 TH/MM3 (150-450); RED BLOOD COUNT 4.43 MIL/MM3 (4.00-5.30); RED CELL DISTRIBUTION WIDTH 15.4 % (11.6-17.2); WHITE BLOOD COUNT 4.6 TH/MM3 (4.0-11.0)
[2017-04-18 19:55] LABS: ALT (GPT) 107 U/L (10-53)
--- NOTE | 2017-04-18 19:55 | PD ---
HPI Chief Complaint: Abdominal Pain Time Seen by Provider: 18:21 Travel History International Travel<30 days: No Contact w/Intl Traveler<30days: No Traveled to known affect area: No History of Present Illness HPI 46-year-old female that presents to the ED for evaluation of epigastric abdominal pain. Per patient she's had nausea and vomiting as well as abdominal pain for the past 24 hours. Per patient she cannot keep anything down. She is a chronic alcoholic and drinks daily. She also has a history of cocaine abuse but denies any recently. She states that she's been having also some nosebleeds. She has been seen here twice this month alone for similar symptoms and was found to be in pancreatitis both times. Last time being seen last week and was found to have improvement of her lipase. She states that she continues to drink and developing a more severe. Per patient the pain stays mainly on the epigastric area. Per patient the medications we were giving her did not help much. She denies any chest pain. No shortness of breath. She states that she's been throwing up whatever she eats. Per patient she had some soup as well as some fries and she threw them up. No blood. She has no allergies to medication. Denies any other medical issues PFSH Past Medical History Anemia: Yes Blood Disorders: Yes (ANEMIA) Bipolar Disorder: Yes Anxiety: Yes Depression: Yes Heart Rhythm Problems: No Cancer: No Cardiac Catheterization: No Cardiovascular Problems: Yes High Cholesterol: Yes Chest Pain: Yes Congestive Heart Failure: No Diabetes: No Diminished Hearing: No Endocrine: No Gastrointestinal Disorders: Yes GERD: Yes Genitourinary: No Headaches: Yes Hypertension: Yes Immune Disorder: No Musculoskeletal: No Neurologic: Yes Psychiatric: No Reproductive: No Respiratory: No Migraines: Yes Myocardial Infarction: No Pancreatitis: Yes Renal Failure: No Schizophrenia: Yes Ulcer: No ?: Not LMP: 2-3 WEEKS AGO : 2 Para: 1 : 1 Past Surgical History Abdominal Surgery: Yes (gallbladder) Cholecystectomy: Yes Coronary Artery Bypass Graft: No Other Surgery: Yes Social History Alcohol Use: Yes (EVERYDAY; BEER, LIQUOR "A LOT") Tobacco Use: No Substance Use: No Allergies-Medications (Allergen,Severity, Reaction): Coded Allergies: No Known Allergies (Verified , 04/15/17) Reported Meds & Prescriptions Reported Meds & Active Scripts Active Nifedipine ER 24 HR (Nifedipine) 60 Mg Tab 60 Mg PO DAILY Reported Hydrochlorothiazide 25 Mg Tab 25 Mg PO DAILY Levothyroxine (Levothyroxine Sodium) 125 Mcg Tab 125 Mcg PO DAILY Ondansetron (Ondansetron HCl) 8 Mg Tab 4 Mg PO Q8HR PRN Clonidine (Clonidine HCl) 0.1 Mg Tab 0.1 Mg PO BID Citalopram (Citalopram Hydrobromide) 10 Mg Tab 10 Mg PO DAILY Ranitidine (Ranitidine HCl) 150 Mg Cap 150 Mg PO DAILY Sucralfate 1 Gram Tab 1 Gm PO TID on empty stomach Review of Systems Except as stated in HPI: all other systems reviewed are Neg Physical Exam Narrative GENERAL: SKIN: Warm and dry. HEAD: Atraumatic. Normocephalic. EYES: Pupils equal and round. No scleral icterus. No injection or drainage. ENT: No nasal bleeding or discharge. Mucous membranes pink and moist. Tongue is midline. No uvula deviation. NECK: Trachea midline. No JVD. CARDIOVASCULAR: Regular rate and rhythm. RESPIRATORY: No accessory muscle use. Clear to auscultation. Breath sounds equal bilaterally. GASTROINTESTINAL: Abdomen soft, tenderness to palpation on the epigastric area, nondistended. Hepatic and splenic margins not palpable. MUSCULOSKELETAL: Extremities without clubbing, cyanosis, or edema. No obvious deformities. Full range of motion of the upper and lower extremities bilaterally. 2+ pulses bilaterally. NEUROLOGICAL: Awake and alert. No obvious cranial nerve deficits. Motor grossly within normal limits. Five out of 5 muscle strength in the arms and legs. Normal speech. PSYCHIATRIC: Appropriate mood and affect; insight and judgment normal. Data Data Last Documented VS Vital Signs Date Time Temp Pulse Resp B/P (MAP) Pulse Ox O2 Delivery O2 Flow Rate FiO2 04/18/17 19:16 80 18 164/117 (133) 100 Room Air 04/18/17 17:47 97.7 Orders Orders Iv Access Insert/Monitor (04/18/17 17:58) Ed Urine Pregnancytest Poc (04/18/17 17:58) Complete Blood Count With Diff (04/18/17 18:26) Comprehensive Metabolic Panel (04/18/17 18:26) Lipase (04/18/17 18:26) Lactic Acid (04/18/17 18:26) Prothrombin Time / Inr (Pt) (04/18/17 18:26) Act Partial Throm Time (Ptt) (04/18/17 18:26) Urinalysis - C+S If Indicated (04/18/17 18:26) Us Abdomen Gallbladder (04/18/17 ) Iv Access Insert/Monitor (04/18/17 18:26) Ecg Monitoring (04/18/17 18:26) Oximetry (04/18/17 18:26) Pantoprazole Inj (Protonix Inj) (04/18/17 18:30) Sodium Chlor 0.9% 1000 Ml Inj (Ns 1000 M (04/18/17 18:26) Famotidine Inj (Pepcid Inj) (04/18/17 18:30) Drug Screen, Random Urine (04/18/17 18:54) Alcohol (Ethanol) (04/18/17 18:54) Labs Laboratory Tests Test 04/18/17 18:45 04/18/17 18:54 04/18/17 19:08 White Blood Count 4.6 TH/MM3 Red Blood Count 4.43 MIL/MM3 Hemoglobin 13.2 GM/DL Hematocrit 39.9 % Mean Corpuscular Volume 89.9 FL Mean Corpuscular Hemoglobin 29.7 PG Mean Corpuscular Hemoglobin Concent 33.0 % Red Cell Distribution Width 15.4 % Platelet Count 387 TH/MM3 Mean Platelet Volume 7.6 FL Neutrophils (%) (Auto) 39.3 % Lymphocytes (%) (Auto) 43.5 % Monocytes (%) (Auto) 13.1 % Eosinophils (%) (Auto) 2.6 % Basophils (%) (Auto) 1.5 % Neutrophils # (Auto) 1.8 TH/MM3 Lymphocytes # (Auto) 2.0 TH/MM3 Monocytes # (Auto) 0.6 TH/MM3 Eosinophils # (Auto) 0.1 TH/MM3 Basophils # (Auto) 0.1 TH/MM3 CBC Comment DIFF FINAL Differential Comment Prothrombin Time 10.5 SEC Prothromb Time International Ratio 1.0 RATIO Activated Partial Thromboplast Time 25.6 SEC Urine Color YELLOW Urine Turbidity HAZY Urine pH 5.0 Urine Specific [place] 1.009 Urine Protein TRACE mg/dL Urine Glucose (UA) NEG mg/dL Urine Ketones NEG mg/dL Urine Occult Blood NEG Urine Nitrite NEG Urine Bilirubin NEG Urine Urobilinogen LESS THAN 2.0 MG/DL Urine Leukocyte Esterase NEG Urine RBC 1 /hpf Urine WBC 2 /hpf Urine Squamous Epithelial Cells 7 /hpf Urine Amorphous Sediment RARE Urine Mucus FEW /lpf Microscopic Urinalysis Comment CULT NOT INDICATED Blood Urea Nitrogen 6 MG/DL Creatinine 0.80 MG/DL Random Glucose 91 MG/DL Total Protein 9.5 GM/DL Albumin 3.7 GM/DL Calcium Level 8.8 MG/DL Alkaline Phosphatase 99 U/L Aspartate Amino Transf (AST/SGOT) 187 U/L Alanine Aminotransferase (ALT/SGPT) 107 U/L Total Bilirubin 0.3 MG/DL Sodium Level 140 MEQ/L Potassium Level 3.9 MEQ/L Chloride Level 107 MEQ/L Carbon Dioxide Level 25.1 MEQ/L Anion Gap 8 MEQ/L Estimat Glomerular Filtration Rate 94 ML/MIN Lipase 487 U/L Ethyl Alcohol Level 327 MG/DL Urine Opiates Screen NEG Urine Barbiturates Screen NEG Urine Amphetamines Screen NEG Urine Benzodiazepines Screen NEG Urine Cocaine Screen NEG Urine Cannabinoids Screen NEG Lactic Acid Level 1.7 mmol/L MDM Medical Decision Making Medical Screen Exam Complete: Yes Emergency Medical Condition: Yes Medical Record Reviewed: Yes Interpretation(s) CBC & BMP Diagram 04/18/17 18:45 Total Protein 9.5 #H, Albumin 3.7, Calcium Level 8.8, Alkaline Phosphatase 99, Aspartate Amino Transf (AST/SGOT) 187 H, Alanine Aminotransferase (ALT/SGPT) 107 H, Total Bilirubin 0.3 Last Impressions Gall Bladder Ultrasound 04/18/17 0000 Signed Impressions: Service Date/Time: Sunday, April 18, 2017 18:32 - CONCLUSION: 1. Enlarged fatty liver. 2. Limited visualization of pancreas due to shadowing bowel gas. Lev Perea MD Lipase in the 400s alcohol in the 300s tox screen shows negative coags WNL lactic WNL Differential Diagnosis pancreatitis vs gallbladder disease vs PUD vs epigastric pain vs abdominal pain Narrative Course 46 year old female here for abdominal pain. Patient was properly examined and found to have signs and symptoms consistent with epigastric abdominal pain. Possible pancreatitis. history is a little limited due to her intoxication which has been mentioned before by prior providers. Labs and imaging ordered. Meds ordered. Labs and imaging showed slightly elevated lipase but this appears to be improved from past 2 visits. Ultrasound was done and was negative for acute disease. Patient does not have a gallbladder. Patient's alcohol is in the 300s. At this time patient is somewhat still intoxicated. Patient will be allowed to sleep of her intoxication. She does appear to have what appears to be epigastric pain. Likely chronic. Very likely gastritis from continuing to drink. Patient was told that she needs to stop drinking. Case will be signed out to my attending pending reevaluation once medically sober. Diagnosis Primary Impression: Epigastric abdominal pain Additional Impression: Alcohol intoxication Qualified Codes: F10.920 - Alcohol use, unspecified with intoxication, uncomplicated Roberto Fisher Apr 18, 2017 19:55
[2017-04-18 19:56] LABS: ANION GAP 8 MEQ/L (5-15); AST (GOT) 187 U/L (15-37); BICARBONATE 25.1 MEQ/L (21.0-32.0); BLOOD UREA NITROGEN 6 MG/DL (7-18); CHLORIDE 107 MEQ/L (98-107); GLOMERULAR FILTRATION RATE 94 ML/MIN (>89); SODIUM (NA) 140 MEQ/L (136-145)
[2017-04-18 19:57] LABS: ALKALINE PHOSPHATASE 99 U/L (45-117); TOTAL BILIRUBIN ADULT 0.3 MG/DL (0.2-1.0)
[2017-04-18 19:58] LABS: POTASSIUM 3.9 MEQ/L (3.5-5.1)
[2017-04-18 20:10] LABS: APTT (PATIENT) 25.6 SEC (24.3-30.1); PROTHROMBIN TIME - PATIENT 10.5 SEC (9.8-11.6)
[2017-05-14] MEDS ORDERED: FOLI1TAB6 PO (13:29)
[2017-05-14] MEDS ORDERED: THERM PO (13:29)
[2017-05-14] MEDS ORDERED: GNP100TA3 PO (13:29)
== END 2017-04-19 03:27 | disposition home or self-care (01) ==
LOC: NEPC 17:22 → NEDAMB 04-19 03:27
DX: R10.13 Epigastric pain (principal); F10.920 Alcohol use, unspecified with intoxication, uncomplicated; R04.0 Epistaxis; D64.9 Anemia, unspecified; I10 Essential (primary) hypertension
CPT/HCPCS: 76705; 80053; 80307; 81001; 83605; 83690; 84703; 85025; 85610; 85730; 96374; 96375; 99285; C9113; J7030

== ENCOUNTER 2017-04-20 11:47 | Emergency (ER) | payer MEDICARE, OTHER ==
[2017-04-20 11:53] VITALS: BP 167/114; PULSE 90; RESP 12; TEMP 98.3; O2SAT 100
--- NOTE | 2017-04-20 11:54 | PD ---
Physical Exam Time Seen by Provider: 11:53 Narrative 46-year-old female presents via [facility] w/ c/o abdominal pain for over one week. Reports vomiting. Positive EtOH. Patient seen in triage. VS reviewed. Patient awaiting bed placement. Data Data Last Documented VS Vital Signs Date Time Temp Pulse Resp B/P (MAP) Pulse Ox O2 Delivery O2 Flow Rate FiO2 04/20/17 11:53 98.3 90 12 167/114 (131) 100 Orders Orders Iv Access Insert/Monitor (04/20/17 12:42) Sodium Chloride 0.9% Flush (Ns Flush) (04/20/17 12:45) MDM Supervised Visit with ALANNAH: Kristine Diamond Apr 20, 2017 11:54
[2017-04-20] MEDS ORDERED: SODIUM CHLORIDE 0.9% FLUSH 10 ML FLUSH IV FLUSH PRN (12:45)
[2017-05-14] MEDS ORDERED: GNP100TA3 PO (13:29)
[2017-05-14] MEDS ORDERED: THERM PO (13:29)
[2017-05-14] MEDS ORDERED: FOLI1TAB6 PO (13:29)
== END 2017-04-20 12:45 | disposition left against medical advice (07) ==
LOC: NED 11:47
DX: R10.9 Unspecified abdominal pain (principal); R11.10 Vomiting, unspecified
CPT/HCPCS: 99281; 99283

== ENCOUNTER 2017-04-22 00:08 | Emergency (ER) | payer MEDICARE, OTHER ==
[~2017-04-22] VITALS: Ht 170.2 cm; Wt 80.0 kg
[2017-04-22 00:23] VITALS: BP 139/97; PULSE 91; RESP 18; TEMP 98.1; O2SAT 99
[2017-04-22] MEDS ORDERED: SODIUM CHLOR 0.9% 1000 ML INJ 1,000 ML IV SCH (00:31)
--- NOTE | 2017-04-22 00:35 | PD ---
HPI Chief Complaint: Abdominal Pain Time Seen by Provider: 00:25 Travel History International Travel<30 days: No Contact w/Intl Traveler<30days: No Traveled to known affect area: No History of Present Illness HPI The patient is a 46-year-old female who presents to the emergency department via EMS for epigastric abdominal pain with nausea and vomiting. The patient is well-known to the emergency department with a history of pancreatitis and chronic alcohol abuse. The patient states her last week of alcohol was earlier today, is unable to quantify the amount of alcohol she drank. She also complains of epigastric abdominal pain associated with nausea and vomiting. The epigastric abdominal pain radiates to the back, there are no current alleviating factors. The patient denies any diarrhea or lower abdominal pain. She denies any associated dysuria, frequency, or urgency. The patient denies any associated chest pain, shortness of breath, or cough. PFSH Past Medical History Anemia: Yes Blood Disorders: Yes (ANEMIA) Bipolar Disorder: Yes Anxiety: Yes Depression: Yes Heart Rhythm Problems: No Cancer: No Cardiac Catheterization: No Cardiovascular Problems: Yes High Cholesterol: Yes Chest Pain: Yes Congestive Heart Failure: No Diabetes: No Diminished Hearing: No Endocrine: No Gastrointestinal Disorders: Yes GERD: Yes Genitourinary: No Headaches: Yes Hypertension: Yes Immune Disorder: No Musculoskeletal: No Neurologic: Yes Psychiatric: No Reproductive: No Respiratory: No Migraines: Yes Myocardial Infarction: No Pancreatitis: Yes Renal Failure: No Schizophrenia: Yes Ulcer: No ?: Not : 2 Para: 1 : 1 Past Surgical History Abdominal Surgery: Yes (gallbladder) Cholecystectomy: Yes Coronary Artery Bypass Graft: No Other Surgery: Yes Social History Alcohol Use: Yes (EVERYDAY; BEER, LIQUOR "A LOT") Tobacco Use: No Substance Use: No Allergies-Medications (Allergen,Severity, Reaction): Uncoded Allergies: PAIN MED SENSITIVITY (Allergy, Severe, Nausea/Vomiting, 04/18/17) Reported Meds & Prescriptions Reported Meds & Active Scripts Active Nifedipine ER 24 HR (Nifedipine) 60 Mg Tab 60 Mg PO DAILY Reported Hydrochlorothiazide 25 Mg Tab 25 Mg PO DAILY Levothyroxine (Levothyroxine Sodium) 125 Mcg Tab 125 Mcg PO DAILY Ondansetron (Ondansetron HCl) 8 Mg Tab 4 Mg PO Q8HR PRN Clonidine (Clonidine HCl) 0.1 Mg Tab 0.1 Mg PO BID Citalopram (Citalopram Hydrobromide) 10 Mg Tab 10 Mg PO DAILY Ranitidine (Ranitidine HCl) 150 Mg Cap 150 Mg PO DAILY Sucralfate 1 Gram Tab 1 Gm PO TID on empty stomach Review of Systems Except as stated in HPI: all other systems reviewed are Neg General / Constitutional: No: Fever HENT: No: Lightheadedness Cardiovascular: No: Chest Pain or Discomfort Respiratory: No: Shortness of Breath Gastrointestinal: Positive: Nausea, Vomiting, Abdominal Pain, No: Diarrhea Genitourinary: No: Dysuria Psychiatric: Positive: Disorder of Thought, Substance Abuse (alcohol abuse) Physical Exam Narrative GENERAL: Awake, alert, nontoxic-appearing 46-year-old female appears her stated age and is in no acute respiratory distress. SKIN: Focused skin assessment warm/dry. HEAD: Atraumatic. Normocephalic. EYES: Pupils equal and round. Sclerae are injected bilaterally. ENT: No nasal bleeding or discharge. Breath smells of alcohol. NECK: Trachea midline. No JVD. CARDIOVASCULAR: Regular rate and rhythm. No murmur appreciated. RESPIRATORY: No accessory muscle use. Clear to auscultation. Breath sounds equal bilaterally. GASTROINTESTINAL: Abdomen soft, mild epigastric tenderness. No rebound tenderness, guarding, or rigidity. MUSCULOSKELETAL: No obvious deformities. No clubbing. No cyanosis. No edema. NEUROLOGICAL: Awake and alert. No obvious cranial nerve deficits. Motor grossly within normal limits. Normal speech. PSYCHIATRIC: Appropriate mood and affect; insight and judgment normal. Data Data Last Documented VS Vital Signs Date Time Temp Pulse Resp B/P (MAP) Pulse Ox O2 Delivery O2 Flow Rate FiO2 04/22/17 00:46 16 100 Room Air 04/22/17 00:23 98.1 91 139/97 (111) Orders Orders Complete Blood Count With Diff (04/22/17 00:31) Comprehensive Metabolic Panel (04/22/17 00:31) Lipase (04/22/17 00:31) Iv Access Insert/Monitor (04/22/17 00:31) Ecg Monitoring (04/22/17 00:31) Oximetry (04/22/17 00:31) Morphine Inj (Morphine Inj) (04/22/17 00:45) Ondansetron Inj (Zofran Inj) (04/22/17 00:45) Sodium Chlor 0.9% 1000 Ml Inj (Ns 1000 M (04/22/17 00:31) Sodium Chloride 0.9% Flush (Ns Flush) (04/22/17 00:45) Famotidine Inj (Pepcid Inj) (04/22/17 00:45) Ketorolac Inj (Toradol Inj) (04/22/17 00:45) Alcohol (Ethanol) (04/22/17 00:31) Labs Laboratory Tests Test 04/22/17 00:35 White Blood Count 4.5 TH/MM3 Red Blood Count 4.04 MIL/MM3 Hemoglobin 12.1 GM/DL Hematocrit 36.2 % Mean Corpuscular Volume 89.5 FL Mean Corpuscular Hemoglobin 29.9 PG Mean Corpuscular Hemoglobin Concent 33.4 % Red Cell Distribution Width 15.3 % Platelet Count 293 TH/MM3 Mean Platelet Volume 7.8 FL Neutrophils (%) (Auto) 48.6 % Lymphocytes (%) (Auto) 36.1 % Monocytes (%) (Auto) 11.1 % Eosinophils (%) (Auto) 3.1 % Basophils (%) (Auto) 1.1 % Neutrophils # (Auto) 2.2 TH/MM3 Lymphocytes # (Auto) 1.6 TH/MM3 Monocytes # (Auto) 0.5 TH/MM3 Eosinophils # (Auto) 0.1 TH/MM3 Basophils # (Auto) 0.1 TH/MM3 CBC Comment DIFF FINAL Differential Comment Blood Urea Nitrogen 10 MG/DL Creatinine 0.86 MG/DL Random Glucose 86 MG/DL Total Protein 9.1 GM/DL Albumin 3.5 GM/DL Calcium Level 8.7 MG/DL Alkaline Phosphatase 97 U/L Aspartate Amino Transf (AST/SGOT) 134 U/L Alanine Aminotransferase (ALT/SGPT) 82 U/L Total Bilirubin 0.2 MG/DL Sodium Level 142 MEQ/L Potassium Level 3.5 MEQ/L Chloride Level 110 MEQ/L Carbon Dioxide Level 22.7 MEQ/L Anion Gap 9 MEQ/L Estimat Glomerular Filtration Rate 87 ML/MIN Lipase 569 U/L Ethyl Alcohol Level 293 MG/DL MDM Medical Decision Making Medical Screen Exam Complete: Yes Emergency Medical Condition: Yes Medical Record Reviewed: Yes Interpretation(s) Laboratory Tests Test 04/22/17 00:35 White Blood Count 4.5 TH/MM3 Red Blood Count 4.04 MIL/MM3 Hemoglobin 12.1 GM/DL Hematocrit 36.2 % Mean Corpuscular Volume 89.5 FL Mean Corpuscular Hemoglobin 29.9 PG Mean Corpuscular Hemoglobin Concent 33.4 % Red Cell Distribution Width 15.3 % Platelet Count 293 TH/MM3 Mean Platelet Volume 7.8 FL Neutrophils (%) (Auto) 48.6 % Lymphocytes (%) (Auto) 36.1 % Monocytes (%) (Auto) 11.1 % Eosinophils (%) (Auto) 3.1 % Basophils (%) (Auto) 1.1 % Neutrophils # (Auto) 2.2 TH/MM3 Lymphocytes # (Auto) 1.6 TH/MM3 Monocytes # (Auto) 0.5 TH/MM3 Eosinophils # (Auto) 0.1 TH/MM3 Basophils # (Auto) 0.1 TH/MM3 CBC Comment DIFF FINAL Differential Comment Blood Urea Nitrogen 10 MG/DL Creatinine 0.86 MG/DL Random Glucose 86 MG/DL Total Protein 9.1 GM/DL Albumin 3.5 GM/DL Calcium Level 8.7 MG/DL Alkaline Phosphatase 97 U/L Aspartate Amino Transf (AST/SGOT) 134 U/L Alanine Aminotransferase (ALT/SGPT) 82 U/L Total Bilirubin 0.2 MG/DL Sodium Level 142 MEQ/L Potassium Level 3.5 MEQ/L Chloride Level 110 MEQ/L Carbon Dioxide Level 22.7 MEQ/L Anion Gap 9 MEQ/L Estimat Glomerular Filtration Rate 87 ML/MIN Lipase 569 U/L Ethyl Alcohol Level 293 MG/DL Differential Diagnosis Differential diagnoses includes pancreatitis, gastritis, alcoholic gastritis, alcohol intoxication, peptic ulcer disease, noncompliance. Narrative Course IV was established, labs are drawn and sent, and the patient was placed on cardiac telemetry monitoring and continuous pulse oximetry monitoring. The patient was administered morphine, Toradol, Zofran, and IV fluids. Lipase level was sent to lab. Patient's alcohol level was 293. Lipase is elevated at 597. The patient will be allowed to sleep off the alcohol, she was advised to stop drinking alcohol to reduce her recurrent episodes of pancreatitis and a follow-up with her primary physician. Diagnosis Primary Impression: Alcohol intoxication Qualified Codes: F10.920 - Alcohol use, unspecified with intoxication, uncomplicated Additional Impression: Pancreatitis Qualified Codes: K86.0 - Alcohol-induced chronic pancreatitis Patient Instructions: General Instructions Additional Instructions: Stop drinking alcohol. Follow-up at [facility]. Follow-up with your primary physician. Disposition: 01 DISCHARGE HOME Condition: Randy Reyes MD Apr 22, 2017 00:35
[2017-04-22] MEDS ORDERED: FAMOTIDINE 20 MG/2 ML VIAL IV PUSH ONE (00:45)
[2017-04-22] MEDS ORDERED: KETOROLAC TROMETHAMINE 30 MG/ML (IVP) VIAL IVP ONE (00:45)
[2017-04-22] MEDS ORDERED: MORPHINE SULFATE 4 MG/ML INJ IV PUSH ONE (00:45)
[2017-04-22] MEDS ORDERED: ONDANSETRON HCL 4 MG/2 ML VIAL IVP ONE (00:45)
[2017-04-22] MEDS ORDERED: SODIUM CHLORIDE 0.9% FLUSH 10 ML FLUSH IV FLUSH PRN (00:45)
[2017-04-22 00:46] VITALS: RESP 16; O2SAT 100
[2017-04-22 01:09] LABS: AUTOMATED NEUTROPHIL # 2.2 TH/MM3 (1.8-7.7); BASOPHIL # 0.1 TH/MM3 (0-0.2); BASOPHIL % 1.1 % (0.0-2.0); EOSINOPHIL # 0.1 TH/MM3 (0-0.4); EOSINOPHIL % 3.1 % (0.0-4.0); HEMATOCRIT 36.2 % (35.0-46.0); HEMO FLAGS DIFF FINAL; LYMPH % 36.1 % (9.0-44.0); LYMPHOCYTE # 1.6 TH/MM3 (1.0-4.8); MEAN CELL VOLUME 89.5 FL (80.0-100.0); MEAN CORPUSCULAR HEMOGLOBIN 29.9 PG (27.0-34.0); MEAN CORPUSCULAR HGB CONC 33.4 % (32.0-36.0); MONO % 11.1 % (0.0-8.0); NEUT % 48.6 % (16.0-70.0); PLATELET COUNT 293 TH/MM3 (150-450); RED BLOOD COUNT 4.04 MIL/MM3 (4.00-5.30); RED CELL DISTRIBUTION WIDTH 15.3 % (11.6-17.2); WHITE BLOOD COUNT 4.5 TH/MM3 (4.0-11.0)
[2017-04-22 01:40] LABS: ALT (GPT) 82 U/L (10-53); ANION GAP 9 MEQ/L (5-15); AST (GOT) 134 U/L (15-37); BICARBONATE 22.7 MEQ/L (21.0-32.0); BLOOD UREA NITROGEN 10 MG/DL (7-18); CHLORIDE 110 MEQ/L (98-107); GLOMERULAR FILTRATION RATE 87 ML/MIN (>89); POTASSIUM 3.5 MEQ/L (3.5-5.1); SODIUM (NA) 142 MEQ/L (136-145)
[2017-04-22 01:42] LABS: ALKALINE PHOSPHATASE 97 U/L (45-117); TOTAL BILIRUBIN ADULT 0.2 MG/DL (0.2-1.0)
[2017-04-22 01:58] LABS: ALCOHOL 293 MG/DL (0-5)
[2017-04-22 06:30] VITALS: BP 135/68; PULSE 87; RESP 18; TEMP 98.1; O2SAT 100
[2017-05-14] MEDS ORDERED: FOLI1TAB6 PO (13:29)
[2017-05-14] MEDS ORDERED: THERM PO (13:29)
[2017-05-14] MEDS ORDERED: GNP100TA3 PO (13:29)
== END 2017-04-22 06:37 | disposition home or self-care (01) ==
LOC: NEPE 00:08
DX: K86.0 Alcohol-induced chronic pancreatitis (principal); F10.920 Alcohol use, unspecified with intoxication, uncomplicated; R11.2 Nausea with vomiting, unspecified; E78.00 Pure hypercholesterolemia, unspecified; I10 Essential (primary) hypertension; K21.9 Gastro-esophageal reflux disease without esophagitis
CPT/HCPCS: 80053; 80307; 83690; 85025; 96374; 96375; 99284; J1885; J2270; J2405; J7030

== ENCOUNTER 2017-04-24 20:37 | Emergency (ER) | payer MEDICARE, OTHER ==
[2017-04-24 20:45] VITALS: BP 181/103; PULSE 92; RESP 16; TEMP 97.8; O2SAT 99
[2017-05-14] MEDS ORDERED: GNP100TA3 PO (13:29)
[2017-05-14] MEDS ORDERED: FOLI1TAB6 PO (13:29)
[2017-05-14] MEDS ORDERED: THERM PO (13:29)
== END 2017-04-24 22:05 | disposition left against medical advice (07) ==
LOC: NED 20:37
DX: R10.9 Unspecified abdominal pain (principal); Z53.21 Procedure and treatment not carried out due to patient leaving prior to being seen by health care provider
CPT/HCPCS: 99281

== ENCOUNTER 2017-04-26 01:46 | Emergency (ER) | payer MEDICARE, OTHER ==
[2017-04-26 01:53] VITALS: BP 160/90; PULSE 86; RESP 16; TEMP 98.9; O2SAT 100
[2017-04-26 02:17] VITALS: BP 168/108; PULSE 87; RESP 16; O2SAT 99
[2017-04-26 02:18] VITALS: O2SAT 99
[2017-04-26 02:42] LABS: AUTOMATED NEUTROPHIL # 1.7 TH/MM3 (1.8-7.7); BASOPHIL % 0.5 % (0.0-2.0); EOSINOPHIL # 0.2 TH/MM3 (0-0.4); EOSINOPHIL % 4.1 % (0.0-4.0); HEMATOCRIT 34.3 % (35.0-46.0); HEMO FLAGS DIFF FINAL; LYMPH % 44.5 % (9.0-44.0); LYMPHOCYTE # 1.9 TH/MM3 (1.0-4.8); MEAN CELL VOLUME 89.2 FL (80.0-100.0); MEAN CORPUSCULAR HEMOGLOBIN 30.1 PG (27.0-34.0); MEAN CORPUSCULAR HGB CONC 33.8 % (32.0-36.0); MONO % 11.4 % (0.0-8.0); NEUT % 39.5 % (16.0-70.0); PLATELET COUNT 181 TH/MM3 (150-450); RED BLOOD COUNT 3.85 MIL/MM3 (4.00-5.30); RED CELL DISTRIBUTION WIDTH 15.3 % (11.6-17.2); WHITE BLOOD COUNT 4.3 TH/MM3 (4.0-11.0)
[2017-04-26 02:44] LABS: BACTERIA, URINE RARE /hpf; BLOOD, URINE NEG (NEG); COMMENT (UR) CULT NOT INDICATED; CULTURE IF INDICATED CULT NOT INDICATED; GLUCOSE,URINE NEG (NEG); KETONE, URINE NEG (NEG); MUCUS URINE FEW /lpf (OCC); NITRITE,URINE NEG (NEG); SQUAMOUS EPITHELIAL CELL URINE 3 /hpf (0-5); URINE COLOR LIGHT-YELLOW (YELLW/STRAW)
[2017-04-26 02:59] LABS: ANION GAP 8 MEQ/L (5-15); AST (GOT) 147 U/L (15-37); BICARBONATE 23.6 MEQ/L (21.0-32.0); BLOOD UREA NITROGEN 9 MG/DL (7-18); CHLORIDE 107 MEQ/L (98-107); GLOMERULAR FILTRATION RATE 93 ML/MIN (>89); POTASSIUM 3.4 MEQ/L (3.5-5.1); SODIUM (NA) 139 MEQ/L (136-145)
[2017-04-26 03:02] LABS: ALKALINE PHOSPHATASE 94 U/L (45-117); ALT (GPT) 88 U/L (10-53); TOTAL BILIRUBIN ADULT 0.2 MG/DL (0.2-1.0)
--- NOTE | 2017-04-26 03:38 | PD ---
HPI Chief Complaint: Abdominal Pain Time Seen by Provider: 02:18 Travel History International Travel<30 days: No Contact w/Intl Traveler<30days: No Traveled to known affect area: No History of Present Illness HPI The patient is a 46 year old female who presents to the [facility] emergency department with a history of abdominal pain that began months ago. It reportedly hurts everyday no matter what she does. She has had n/vx2 in the last 24 hours. She denies any diarrhea. She reports that she has a history of pancreatitis. She reports that she drinks alcohol daily. She reports that she has no intention of quitting drinking alcohol. The patient reports that the pain is in the midepigastric area and is sharp in character. On review of systems, the patient denies any recent fevers, cough, congestion, neck pain, chest pain, shortness of breath, urinary symptoms, or neurologic symptoms. She last saw her primary care physician this week. PCP: [facility] Past Medical History Narrative Medical The Patient's past medical history is significant for pancreatitis, bipolar disorder, schizophrenia, alcohol abuse, liver disease, hypertension. Anemia: Yes Blood Disorders: Yes (ANEMIA) Bipolar Disorder: Yes Anxiety: Yes Depression: Yes Heart Rhythm Problems: No Cancer: No Cardiac Catheterization: No Cardiovascular Problems: Yes High Cholesterol: Yes Chest Pain: Yes Congestive Heart Failure: No Diabetes: No Diminished Hearing: No Endocrine: No Gastrointestinal Disorders: Yes GERD: Yes Genitourinary: No Headaches: Yes Hypertension: Yes Immune Disorder: No Musculoskeletal: No Neurologic: Yes Psychiatric: No Reproductive: No Respiratory: No Migraines: Yes Myocardial Infarction: No Pancreatitis: Yes Renal Failure: No Schizophrenia: Yes Ulcer: No Tetanus Vaccination: > 5 Years Influenza Vaccination: No ?: Not : 2 Para: 1 : 1 Past Surgical History Narrative Surgical The patient's past surgical history is significant for a cholecystectomy. Abdominal Surgery: Yes (gallbladder) Cholecystectomy: Yes Coronary Artery Bypass Graft: No Other Surgery: Yes Social History Alcohol Use: Yes (EVERYDAY; BEER, LIQUOR "A LOT") Tobacco Use: No Substance Use: No Allergies-Medications (Allergen,Severity, Reaction): Uncoded Allergies: PAIN MED SENSITIVITY (Allergy, Severe, Nausea/Vomiting, 04/18/17) Reported Meds & Prescriptions Reported Meds & Active Scripts Active Phenergan Supp (Promethazine HCl) 25 Mg Supp 25 Mg RECTAL Q6H PRN Nifedipine ER 24 HR (Nifedipine) 60 Mg Tab 60 Mg PO DAILY Reported Hydrochlorothiazide 25 Mg Tab 25 Mg PO DAILY Levothyroxine (Levothyroxine Sodium) 125 Mcg Tab 125 Mcg PO DAILY Ondansetron (Ondansetron HCl) 8 Mg Tab 4 Mg PO Q8HR PRN Clonidine (Clonidine HCl) 0.1 Mg Tab 0.1 Mg PO BID Citalopram (Citalopram Hydrobromide) 10 Mg Tab 10 Mg PO DAILY Ranitidine (Ranitidine HCl) 150 Mg Cap 150 Mg PO DAILY Sucralfate 1 Gram Tab 1 Gm PO TID on empty stomach Review of Systems Except as stated in HPI: all other systems reviewed are Neg General / Constitutional: No: Fever Eyes: No: Visual changes HENT: No: Headaches Cardiovascular: No: Chest Pain or Discomfort Respiratory: No: Shortness of Breath Gastrointestinal: Positive: Nausea, Vomiting, Abdominal Pain, No: Changes in Bowel Habits, Indigestion, Loss of Appetite Genitourinary: No: Dysuria Musculoskeletal: No: Pain Skin: No Rash Neurologic: No: Weakness Psychiatric: No: Depression Endocrine: No: Polydipsia Hematologic/Lymphatic: No: Easy Bruising Physical Exam Narrative General: The patient is a well-developed well-nourished female in no acute distress, sleeping soundly on my arrival to the room. Head and Neck exam: Head is normocephalic atraumatic. Eyes: EOMI, pupils are equal round and reactive to light. Nose: Midline septum with pink mucous membranes Mouth: Dentition unremarkable. Moist mucus membranes. Posterior oropharynx is not erythematous. No tonsillar hypertrophy. Uvula midline. Airway patent. Neck: No palpable lymphadenopathy. No nuchal rigidity. No thyromegaly. Cardiovascular: Regular rate and rhythm without murmurs, gallops, or rubs. Lungs: Clear to auscultation bilaterally. No wheezes, rhonchi, or rales. Abdomen: Soft, with tenderness on palpation reported when palpating the midepigastric area, however no tenderness on palpation on listening with the stethoscope in that location, no other tenderness on palpation of the other quadrants of the abdomen. No guarding, rebound, or rigidity. Extremities: No clubbing, cyanosis, or edema. 2+ pulses in all 4 extremities. No calf tenderness on palpation. Back: No spinous process tenderness to palpation. No costovertebral angle tenderness to palpation. Neurologic Exam: Grossly nonfocal. Skin Exam: No rash noted. Intact skin that is warm and dry. Data Data Last Documented VS Vital Signs Date Time Temp Pulse Resp B/P (MAP) Pulse Ox O2 Delivery O2 Flow Rate FiO2 04/26/17 05:33 04/26/17 02:18 99 Room Air 04/26/17 02:17 87 16 04/26/17 01:53 98.9 Orders Orders Complete Blood Count With Diff (04/26/17 02:12) Comprehensive Metabolic Panel (04/26/17 02:12) Urinalysis - C+S If Indicated (04/26/17 02:12) Ed Urine Pregnancytest Poc (04/26/17 02:12) Iv Access Insert/Monitor (04/26/17 02:12) Oxygen Administration (04/26/17 02:12) Oximetry (04/26/17 02:12) Lipase (04/26/17 02:12) Sodium Chlor 0.9% 1000 Ml Inj (Ns 1000 M (04/26/17 03:45) Ondansetron Inj (Zofran Inj) (04/26/17 03:45) Potassium Chloride (Kcl) (04/26/17 05:15) Labs Laboratory Tests Test 04/26/17 02:25 04/26/17 02:30 White Blood Count 4.3 TH/MM3 Red Blood Count 3.85 MIL/MM3 Hemoglobin 11.6 GM/DL Hematocrit 34.3 % Mean Corpuscular Volume 89.2 FL Mean Corpuscular Hemoglobin 30.1 PG Mean Corpuscular Hemoglobin Concent 33.8 % Red Cell Distribution Width 15.3 % Platelet Count 181 TH/MM3 Mean Platelet Volume 7.8 FL Neutrophils (%) (Auto) 39.5 % Lymphocytes (%) (Auto) 44.5 % Monocytes (%) (Auto) 11.4 % Eosinophils (%) (Auto) 4.1 % Basophils (%) (Auto) 0.5 % Neutrophils # (Auto) 1.7 TH/MM3 Lymphocytes # (Auto) 1.9 TH/MM3 Monocytes # (Auto) 0.5 TH/MM3 Eosinophils # (Auto) 0.2 TH/MM3 Basophils # (Auto) 0.0 TH/MM3 CBC Comment DIFF FINAL Differential Comment Blood Urea Nitrogen 9 MG/DL Creatinine 0.81 MG/DL Random Glucose 97 MG/DL Total Protein 8.3 GM/DL Albumin 3.3 GM/DL Calcium Level 8.0 MG/DL Alkaline Phosphatase 94 U/L Aspartate Amino Transf (AST/SGOT) 147 U/L Alanine Aminotransferase (ALT/SGPT) 88 U/L Total Bilirubin 0.2 MG/DL Sodium Level 139 MEQ/L Potassium Level 3.4 MEQ/L Chloride Level 107 MEQ/L Carbon Dioxide Level 23.6 MEQ/L Anion Gap 8 MEQ/L Estimat Glomerular Filtration Rate 93 ML/MIN Lipase 600 U/L Urine Color LIGHT-YELLOW Urine Turbidity HAZY Urine pH 5.0 Urine Specific [place] 1.005 Urine Protein NEG mg/dL Urine Glucose (UA) NEG mg/dL Urine Ketones NEG mg/dL Urine Occult Blood NEG Urine Nitrite NEG Urine Bilirubin NEG Urine Urobilinogen LESS THAN 2.0 MG/DL Urine Leukocyte Esterase NEG Urine RBC LESS THAN 1 /hpf Urine WBC 1 /hpf Urine Squamous Epithelial Cells 3 /hpf Urine Bacteria RARE /hpf Urine Mucus FEW /lpf Microscopic Urinalysis Comment CULT NOT INDICATED MDM Medical Decision Making Medical Screen Exam Complete: Yes Emergency Medical Condition: Yes Medical Record Reviewed: Yes Differential Diagnosis Acute pancreatitis, versus chronic pancreatitis, versus gastritis, versus acid brief, versus gastroenteritis, versus drug-seeking behavior Narrative Course During the course of the patients emergency department visit, the patients history, examination, and differential diagnosis were reviewed with the patient. The patient had IV access obtained and blood work sent for analysis. The patient was placed on a tomb maker helper with oximetry and frequent blood pressure monitoring. The patient was initially provided normal saline 1 L IV fluid bolus, Zofran 4 mg IV. The patients laboratory studies were reviewed and remarkable for a white count of 4.3, hemoglobin 11.6, platelets 181, lymphocytes 44.5, monocytes 11.4, eosinophils 4.1. CMP is remarkable for potassium of 3.4 which will be supplemented orally, calcium 8.0, AST 147, ALT 88, alkaline phosphatase 94, lipase 600, urinalysis is unremarkable. Review the electronic medical record reveals that the patient on April [address] scan of the abdomen and pelvis that had fatty infiltration of the liver, no other acute abnormality. The patient also recently underwent a CTA of the aorta which was negative. The patient had no further episodes of vomiting while in the emergency department. The patient's abdominal examination is benign, therefore risk outweighs benefit of further imaging. I asked the patient whether she intends to quit drinking as this is the cause of her abdominal pain and recurrent pancreatitis. The patient reports that she has no intention of quitting drinking. The patient is resting comfortably and feels better, is alert and in no distress. The patients results and examination findings were discussed with the patient. The repeat examination is unremarkable and benign. The history, exam, diagnostic testing, and current condition do not suggest any significant pathology to warrant further testing, continued ED treatment, admission, or surgical evaluation at this point. The vital signs have been stable. The patient does not have uncontrollable pain, intractable vomiting, or other significant symptoms. The patient's condition is stable and appropriate for discharge. The patient will pursue further outpatient evaluation with a primary care physician or other designated or consulting physician as indicated in the discharge instructions. The patient expressed understanding and was agreeable with this plan. Diagnosis Primary Impression: Chronic inflammation of pancreas Qualified Codes: K86.0 - Alcohol-induced chronic pancreatitis Additional Impression: Alcohol abuse Referrals: Primary Care Physician Patient Instructions: Abuse of Alcohol (ED), General Instructions, Pancreatitis (ED) Med/Other Pt SpecificInfo: No Change to Meds Scripts Promethazine Supp (Phenergan Supp) 25 Mg Supp 25 MG RECTAL Q6H Y for NAUSEA OR VOMITING, #7 SUPP 0 Refills Prov: Donna Hoyos MD 04/26/17 Disposition: 01 DISCHARGE HOME Condition: Stable Donna Hoyos MD Apr 26, 2017 03:38
[2017-04-26] MEDS ORDERED: SODIUM CHLOR 0.9% 1000 ML INJ 1,000 ML IV ONE (03:45)
[2017-04-26] MEDS ORDERED: ONDANSETRON HCL 4 MG/2 ML VIAL IV ONE (03:45)
[2017-04-26] MEDS ORDERED: PROM1SUP7 RECTAL (05:04)
[2017-04-26] MEDS ORDERED: POTASSIUM CHLORIDE 10 MEQ CONTROLLED RELEASE TAB PO ONE (05:15)
[2017-05-14] MEDS ORDERED: THERM PO (13:29)
[2017-05-14] MEDS ORDERED: FOLI1TAB6 PO (13:29)
[2017-05-14] MEDS ORDERED: GNP100TA3 PO (13:29)
== END 2017-04-26 05:30 | disposition home or self-care (01) ==
LOC: NEPC 01:46
DX: K86.0 Alcohol-induced chronic pancreatitis (principal); F10.10 Alcohol abuse, uncomplicated; I10 Essential (primary) hypertension
CPT/HCPCS: 80053; 81001; 83690; 84703; 85025; 96361; 96374; 99284; J2405; J7030

== ENCOUNTER 2017-04-27 17:52 | Emergency (ER) | payer MEDICARE, OTHER ==
[~2017-04-27 17:52] MED LIST changes: +PROM1SUP7 RECTAL
[2017-05-14] MEDS ORDERED: GNP100TA3 PO (13:29)
[2017-05-14] MEDS ORDERED: THERM PO (13:29)
[2017-05-14] MEDS ORDERED: FOLI1TAB6 PO (13:29)
== END 2017-04-27 18:00 | disposition left against medical advice (07) ==
LOC: NEDAMB 17:52
DX: R10.9 Unspecified abdominal pain (principal); Z53.21 Procedure and treatment not carried out due to patient leaving prior to being seen by health care provider
CPT/HCPCS: 99281

== ENCOUNTER 2017-05-02 18:07 | Emergency (ER) | payer MEDICARE, OTHER ==
[~2017-05-02] VITALS: Ht 160 cm; Wt 75.0 kg
[2017-05-02] MEDS ORDERED: IOHEXOL 350 MG/ML 10 ML VIAL (for RAD DIAG) IVCONTRAST ONE (18:08)
[2017-05-02 18:34] VITALS: BP 145/100; PULSE 82; RESP 16; TEMP 98.6; O2SAT 97
[2017-05-02] MEDS ORDERED: SODIUM CHLOR 0.9% 1000 ML INJ 1,000 ML IV SCH (19:14)
[2017-05-02] MEDS ORDERED: MORPHINE SULFATE 4 MG/ML INJ IV PUSH ONE (19:15)
[2017-05-02] MEDS ORDERED: ALUMINUM/MAGNESIUM/SIMETH 30 ML CUP PO ONE (19:15)
[2017-05-02] MEDS ORDERED: SODIUM CHLORIDE 0.9% FLUSH 10 ML FLUSH IV FLUSH PRN (19:15)
[2017-05-02] MEDS ORDERED: LIDOCAINE VISCOUS 2% SOLN 15 ML UDC PO ONE (19:15)
[2017-05-02] MEDS ORDERED: ONDANSETRON HCL 4 MG/2 ML VIAL IVP ONE (19:15)
[2017-05-02] MEDS ORDERED: FAMOTIDINE 20 MG/2 ML VIAL IV PUSH ONE (19:15)
[2017-05-02] MEDS ORDERED: IBUP800T23 PO (19:21)
--- NOTE | 2017-05-02 19:24 | PD ---
HPI Chief Complaint: Abdominal Pain Time Seen by Provider: 19:08 Travel History International Travel<30 days: No Contact w/Intl Traveler<30days: No Traveled to known affect area: No History of Present Illness HPI 46-year-old Diana female presents emergency Department with complaints of abdominal pain, nausea and vomiting. She states "I have appendicitis". Patient denies fever or chills. She denies urinary or vaginal symptoms. She denies changes in her bowels. Patient states she's been taking all her medications. Patient denies alcohol use, but smells of alcohol. Pain is a 9 out of 10 and she points to her epigastric region. Patient has a pain med sensitivity but no allergies. PFSH Past Medical History Anemia: Yes Blood Disorders: Yes (ANEMIA) Bipolar Disorder: Yes Anxiety: Yes Depression: Yes Heart Rhythm Problems: No Cancer: No Cardiac Catheterization: No Cardiovascular Problems: Yes High Cholesterol: Yes Chest Pain: Yes Congestive Heart Failure: No Diabetes: No Diminished Hearing: No Endocrine: No Gastrointestinal Disorders: Yes GERD: Yes Genitourinary: No Headaches: Yes Hypertension: Yes Immune Disorder: No Musculoskeletal: No Neurologic: Yes Psychiatric: No Reproductive: No Respiratory: No Migraines: Yes Myocardial Infarction: No Pancreatitis: Yes Renal Failure: No Schizophrenia: Yes Ulcer: No : 2 Para: 1 : 1 Past Surgical History Abdominal Surgery: Yes (gallbladder) Cholecystectomy: Yes Coronary Artery Bypass Graft: No Other Surgery: Yes Social History Alcohol Use: Yes (EVERYDAY; BEER, LIQUOR "A LOT") Tobacco Use: No Substance Use: No Allergies-Medications (Allergen,Severity, Reaction): Uncoded Allergies: PAIN MED SENSITIVITY (Allergy, Severe, Nausea/Vomiting, 04/18/17) Reported Meds & Prescriptions Reported Meds & Active Scripts Active Nifedipine ER 24 HR (Nifedipine) 60 Mg Tab 60 Mg PO DAILY Reported Ibuprofen 800 Mg Tab 800 Mg PO BID Hydrochlorothiazide 25 Mg Tab 25 Mg PO DAILY Levothyroxine (Levothyroxine Sodium) 125 Mcg Tab 125 Mcg PO DAILY Clonidine (Clonidine HCl) 0.1 Mg Tab 0.1 Mg PO BID Citalopram (Citalopram Hydrobromide) 10 Mg Tab 10 Mg PO DAILY Ranitidine (Ranitidine HCl) 150 Mg Cap 150 Mg PO DAILY Sucralfate 1 Gram Tab 1 Gm PO TID on empty stomach Review of Systems ROS Limitations: Uncooperative, Poor Historian Except as stated in HPI: all other systems reviewed are Neg General / Constitutional: No: Fever, Chills Eyes: No: Visual changes HENT: No: Headaches Cardiovascular: No: Chest Pain or Discomfort Respiratory: No: Shortness of Breath Gastrointestinal: No: Abdominal Pain Genitourinary: No: Dysuria Musculoskeletal: No: Pain Skin: No Rash Neurologic: No: Weakness Psychiatric: No: Depression Endocrine: No: Polydipsia Hematologic/Lymphatic: No: Easy Bruising Physical Exam Exam Limitations: Poor Historian, Uncooperative Narrative GENERAL: Patient appears in no acute distress. SKIN: Warm and dry. Normal color. Normal turgor. HEAD: Atraumatic. Normocephalic. EYES: Pupils equal and round. No scleral icterus. No injection or drainage. ENT: No nasal bleeding or discharge. Mucous membranes pink and moist. Pharynx is clear. Airway is patent. NECK: Trachea midline. Supple nontender. CARDIOVASCULAR: Regular rate and rhythm. RESPIRATORY: No accessory muscle use. Clear to auscultation. Breath sounds equal bilaterally. GASTROINTESTINAL: Abdomen soft, moderate epigastric tenderness, nondistended. No point tenderness or rebound. Hepatic and splenic margins not palpable. No CVA tenderness. MUSCULOSKELETAL: Extremities without clubbing, cyanosis, or edema. No obvious deformities. NEUROLOGICAL: Awake and alert. No obvious cranial nerve deficits. Motor grossly within normal limits. Five out of 5 muscle strength in the arms and legs. Normal speech. PSYCHIATRIC: Appropriate mood and affect; insight and judgment normal. Data Data Last Documented VS Vital Signs Date Time Temp Pulse Resp B/P (MAP) Pulse Ox O2 Delivery O2 Flow Rate FiO2 05/02/17 19:27 98.7 20 98 Room Air 05/02/17 18:34 82 Orders Orders Complete Blood Count With Diff (05/02/17 19:14) Comprehensive Metabolic Panel (05/02/17 19:14) Lipase (05/02/17 19:14) Urinalysis - C+S If Indicated (05/02/17 19:14) Ct Abd/Pel W Iv Contrast(Rout) (05/02/17 19:14) Iv Access Insert/Monitor (05/02/17 19:14) Ecg Monitoring (05/02/17 19:14) Oximetry (05/02/17 19:14) NPO (05/02/17 19:14) Morphine Inj (Morphine Inj) (05/02/17 19:15) Ondansetron Inj (Zofran Inj) (05/02/17 19:15) Sodium Chlor 0.9% 1000 Ml Inj (Ns 1000 M (05/02/17 19:14) Sodium Chloride 0.9% Flush (Ns Flush) (05/02/17 19:15) Electrocardiogram (05/02/17 19:14) Al-Mag Hy-Si 40-40-4 Mg/Ml Liq (Mag-Al P (05/02/17 19:15) Lidocaine 2% Viscous (Xylocaine 2% Visco (05/02/17 19:15) Ed Urine Pregnancytest Poc (05/02/17 19:14) Famotidine Inj (Pepcid Inj) (05/02/17 19:15) Drug Screen, Random Urine (05/02/17 19:14) Alcohol (Ethanol) (05/02/17 19:14) Sodium Chlor 0.9% 1000 Ml Inj (Ns 1000 M (05/02/17 21:30) Iohexol 350 Inj (Omnipaque 350 Inj) (05/02/17 18:08) Labs Laboratory Tests Test 05/02/17 19:35 White Blood Count 4.0 TH/MM3 Red Blood Count 4.02 MIL/MM3 Hemoglobin 12.3 GM/DL Hematocrit 36.5 % Mean Corpuscular Volume 90.6 FL Mean Corpuscular Hemoglobin 30.5 PG Mean Corpuscular Hemoglobin Concent 33.7 % Red Cell Distribution Width 14.9 % Platelet Count 168 TH/MM3 Mean Platelet Volume 8.3 FL Neutrophils (%) (Auto) 43.4 % Lymphocytes (%) (Auto) 36.9 % Monocytes (%) (Auto) 16.6 % Eosinophils (%) (Auto) 2.6 % Basophils (%) (Auto) 0.5 % Neutrophils # (Auto) 1.7 TH/MM3 Lymphocytes # (Auto) 1.5 TH/MM3 Monocytes # (Auto) 0.7 TH/MM3 Eosinophils # (Auto) 0.1 TH/MM3 Basophils # (Auto) 0.0 TH/MM3 CBC Comment DIFF FINAL Differential Comment Urine Color YELLOW Urine Turbidity CLEAR Urine pH 5.0 Urine Specific [place] 1.011 Urine Protein NEG mg/dL Urine Glucose (UA) NEG mg/dL Urine Ketones NEG mg/dL Urine Occult Blood NEG Urine Nitrite NEG Urine Bilirubin NEG Urine Urobilinogen 2.0 MG/DL Urine Leukocyte Esterase SMALL Urine RBC 1 /hpf Urine WBC 3 /hpf Urine Squamous Epithelial Cells 2 /hpf Urine Bacteria RARE /hpf Urine Mucus FEW /lpf Microscopic Urinalysis Comment CULT NOT INDICATED Blood Urea Nitrogen 10 MG/DL Creatinine 0.96 MG/DL Random Glucose 96 MG/DL Total Protein 8.6 GM/DL Albumin 3.5 GM/DL Calcium Level 8.4 MG/DL Alkaline Phosphatase 89 U/L Aspartate Amino Transf (AST/SGOT) 178 U/L Alanine Aminotransferase (ALT/SGPT) 88 U/L Total Bilirubin 0.4 MG/DL Sodium Level 136 MEQ/L Potassium Level 3.3 MEQ/L Chloride Level 100 MEQ/L Carbon Dioxide Level 27.4 MEQ/L Anion Gap 9 MEQ/L Estimat Glomerular Filtration Rate 76 ML/MIN Lipase 855 U/L Urine Opiates Screen NEG Urine Barbiturates Screen NEG Urine Amphetamines Screen NEG Urine Benzodiazepines Screen NEG Urine Cocaine Screen POS Urine Cannabinoids Screen NEG Ethyl Alcohol Level 222 MG/DL [facility] Medical Decision Making Medical Screen Exam Complete: Yes Emergency Medical Condition: Yes Medical Record Reviewed: Yes Differential Diagnosis Epigastric pain. Nausea vomiting. Gastritis. Pancreatitis. Appendicitis. Narrative Course Labs ordered including CBC, CMP, lipase, urinalysis, urine . Serum EtOH. Urine toxic screen ordered. IV access is obtained patient is given Pepcid IV as well as 4 mg Zofran IV. Patient is given a GI cocktail. Patient is given 1000 miles normal saline bolus. Abdomen with IV contrast is ordered. Urine tox screen is positive for cocaine, serum alcohol Urinalysis is unremarkable. CBC is unremarkable. CMP shows Abdominal CT shows: 1. Severe hepatic steatosis. 2. Status post cholecystectomy. 3. Prominent nabothian cysts of the cervix. Patient is felt to be stable for discharge. Patient discharged on omeprazole 40 mg daily #30. Patient is instructed not to drink alcohol. Patient referred to [facility] Patient to follow up if symptoms worsen. Diagnosis Primary Impression: Epigastric abdominal pain Additional Impression: Gastritis Referrals: [facility] Patient Instructions: Acute Nausea and Vomiting (ED), General Instructions Additional Instructions: Patient is felt to be stable for discharge. Patient discharged on omeprazole 40 mg daily #30. Patient is instructed not to drink alcohol. Patient referred to [facility] Patient to follow up if symptoms worsen. Med/Other Pt SpecificInfo: Prescription(s) given Disposition: 01 DISCHARGE HOME Condition: Stable Gildardo Smith May 02, 2017 19:24
[2017-05-02 19:27] VITALS: RESP 20; TEMP 98.7; O2SAT 98
[2017-05-02 19:53] LABS: BACTERIA, URINE RARE /hpf; BLOOD, URINE NEG (NEG); COMMENT (UR) CULT NOT INDICATED; CULTURE IF INDICATED CULT NOT INDICATED; GLUCOSE,URINE NEG (NEG); KETONE, URINE NEG (NEG); MUCUS URINE FEW /lpf (OCC); NITRITE,URINE NEG (NEG); SQUAMOUS EPITHELIAL CELL URINE 2 /hpf (0-5); URINE COLOR YELLOW (YELLW/STRAW)
[2017-05-02 20:04] LABS: AUTOMATED NEUTROPHIL # 1.7 TH/MM3 (1.8-7.7); BASOPHIL % 0.5 % (0.0-2.0); EOSINOPHIL # 0.1 TH/MM3 (0-0.4); EOSINOPHIL % 2.6 % (0.0-4.0); HEMATOCRIT 36.5 % (35.0-46.0); HEMO FLAGS DIFF FINAL; LYMPH % 36.9 % (9.0-44.0); LYMPHOCYTE # 1.5 TH/MM3 (1.0-4.8); MEAN CELL VOLUME 90.6 FL (80.0-100.0); MEAN CORPUSCULAR HEMOGLOBIN 30.5 PG (27.0-34.0); MEAN CORPUSCULAR HGB CONC 33.7 % (32.0-36.0); MONO % 16.6 % (0.0-8.0); NEUT % 43.4 % (16.0-70.0); PLATELET COUNT 168 TH/MM3 (150-450); RED BLOOD COUNT 4.02 MIL/MM3 (4.00-5.30); RED CELL DISTRIBUTION WIDTH 14.9 % (11.6-17.2)
[2017-05-02 20:28] LABS: ALT (GPT) 88 U/L (10-53)
[2017-05-02 20:29] LABS: ALKALINE PHOSPHATASE 89 U/L (45-117); TOTAL BILIRUBIN ADULT 0.4 MG/DL (0.2-1.0)
[2017-05-02 20:35] LABS: ANION GAP 9 MEQ/L (5-15); AST (GOT) 178 U/L (15-37); BICARBONATE 27.4 MEQ/L (21.0-32.0); BLOOD UREA NITROGEN 10 MG/DL (7-18); CHLORIDE 100 MEQ/L (98-107); GLOMERULAR FILTRATION RATE 76 ML/MIN (>89); POTASSIUM 3.3 MEQ/L (3.5-5.1); SODIUM (NA) 136 MEQ/L (136-145)
[2017-05-02 20:40] LABS: ALCOHOL 222 MG/DL (0-5)
[2017-05-02] MEDS ORDERED: SODIUM CHLOR 0.9% 1000 ML INJ 1,000 ML IV ONE (21:30)
--- NOTE | 2017-05-02 22:09 | RADRPT ---
EXAM DATE/TIME: 05/02/2017 21:02 [facility] COMPARISON: CT ABDOMEN & PELVIS W CONTRAST, April 06, 2017, 19:15. INDICATIONS : Patient complains of abdominal pain, nausea and vomiting. IV CONTRAST: 100 cc Omnipaque 350 (iohexol) IV ORAL CONTRAST: No oral contrast ingested. RADIATION DOSE: 9.96 CTDIvol (mGy) MEDICAL HISTORY : Cardiovascular disease. Hypertension. Pancreatitis. SURGICAL HISTORY : Appendectomy. Cholecystectomy. ENCOUNTER: Initial ACUITY: 1 day PAIN SCALE: 6/10 LOCATION: abdomen TECHNIQUE: Volumetric scanning of the abdomen and pelvis was performed. Using automated exposure control and ad justment of the mA and/or kV according to patient size, radiation dose was kept as low as reasonably achievable to obtain optimal diagnostic quality images. DICOM format image data is available electro nically for review and comparison. FINDINGS: LOWER LUNGS: The visualized lower lungs are clear. LIVER: There is very prominent decreased attenuation throughout the liver. No focal hepatic lesions are seen . The patient is status post cholecystectomy. SPLEEN: Normal size without lesion. PANCREAS: Within normal limits. KIDNEYS: Normal in size and shape. There is no mass, stone or hydronephrosis. ADRENAL GLANDS: Within normal limits. VASCULAR: There is no aortic aneurysm. BOWEL/MESENTERY: The stomach, small bowel, and colon demonstrate no acute abnormality. There is no free intraperitone al air or fluid. The appendix appears normal. ABDOMINAL WALL: No hernia seen. 2 clips are seen in the fat at the upper anterior abdominal wall just superficial to the abdominal wall musculature. RETROPERITONEUM: There is no lymphadenopathy. BLADDER: No wall thickening or mass. REPRODUCTIVE: There is prompt cystic change at the lower cervix likely related to prominent nabothian cysts. This f inding was present previously and is unchanged. INGUINAL: There is no lymphadenopathy or hernia. MUSCULOSKELETAL: There is degenerative change in the lower lumbar spine. CONCLUSION: 1. Severe hepatic steatosis. 2. Status post cholecystectomy. 3. Prominent nabothian cysts of the cervix. Richard Guo MD on May 02, 2017 at 22:04 Board Certified Radiologist. This report was verified electronically.
[2017-05-02] MEDS ORDERED: OMEP40CA2 PO (22:18)
--- NOTE | 2017-05-03 14:50 | EKG ---
Date Performed: 05/02/2017 Time Performed: 20:13:05 PTAGE: 46 years EKG: Sinus rhythm NORMAL ECG PREVIOUS TRACING 04/06/2017 @ 19.05.44 Compared to prior tracing no significant change DOCTOR: Gama Major Interpretating Date/Time 05/03/2017 15:12:21
[2017-05-14] MEDS ORDERED: GNP100TA3 PO (13:29)
[2017-05-14] MEDS ORDERED: FOLI1TAB6 PO (13:29)
[2017-05-14] MEDS ORDERED: THERM PO (13:29)
== END 2017-05-02 23:11 | disposition home or self-care (01) ==
LOC: NEPD 18:07
DX: K29.70 Gastritis, unspecified, without bleeding (principal); R10.13 Epigastric pain; I10 Essential (primary) hypertension; K21.9 Gastro-esophageal reflux disease without esophagitis; D64.9 Anemia, unspecified; F31.9 Bipolar disorder, unspecified; E78.00 Pure hypercholesterolemia, unspecified; F10.10 Alcohol abuse, uncomplicated
CPT/HCPCS: 74177; 80053; 80307; 81001; 83690; 84703; 85025; 93005; 96361; 96374; 96375; 99285; J2270; J2405; J7030; Q9967

== ENCOUNTER 2017-05-08 15:04 | Emergency (ER) | payer MEDICARE, OTHER ==
[~2017-05-08 15:04] MED LIST changes: +IBUP800T23 PO; +OMEP40CA2 PO; -ONDA1TAB17 PO; -PROM1SUP7 RECTAL
[2017-05-08 15:17] VITALS: BP 150/98; PULSE 97; RESP 16; TEMP 98.6; O2SAT 97
[2017-05-14] MEDS ORDERED: THERM PO (13:29)
[2017-05-14] MEDS ORDERED: GNP100TA3 PO (13:29)
[2017-05-14] MEDS ORDERED: FOLI1TAB6 PO (13:29)
== END 2017-05-08 16:36 | disposition left against medical advice (07) ==
LOC: NEDAMB 15:04
DX: R10.9 Unspecified abdominal pain (principal)
CPT/HCPCS: 99281

== ENCOUNTER 2017-05-09 00:35 | Emergency (ER) | payer MEDICARE, OTHER ==
[~2017-05-09] VITALS: Ht 162.6 cm; Wt 89.3 kg
[2017-05-09 00:44] VITALS: BP 148/88; PULSE 77; RESP 18; TEMP 98.2; O2SAT 100
[2017-05-09 01:23] VITALS: BP 148/91; PULSE 76; RESP 17; O2SAT 100
[2017-05-09 01:26] VITALS: RESP 17; O2SAT 97
[2017-05-09] MEDS ORDERED: SODIUM CHLORID 0.9% 500 ML INJ 500 ML IV ONE ×2 (01:30→04:00)
[2017-05-09 01:44] LABS: BASOPHIL # 0.1 TH/MM3 (0-0.2); EOSINOPHIL # 0.1 TH/MM3 (0-0.4); EOSINOPHIL % 2.3 % (0.0-4.0); HEMATOCRIT 35.2 % (35.0-46.0); HEMO FLAGS DIFF FINAL; LYMPH % 24.3 % (9.0-44.0); LYMPHOCYTE # 1.2 TH/MM3 (1.0-4.8); MEAN CORPUSCULAR HEMOGLOBIN 30.2 PG (27.0-34.0); MEAN CORPUSCULAR HGB CONC 33.2 % (32.0-36.0); MONO % 10.4 % (0.0-8.0); PLATELET COUNT 262 TH/MM3 (150-450); RED BLOOD COUNT 3.87 MIL/MM3 (4.00-5.30); RED CELL DISTRIBUTION WIDTH 14.6 % (11.6-17.2); WHITE BLOOD COUNT 4.9 TH/MM3 (4.0-11.0)
[2017-05-09 02:00] LABS: ALT (GPT) 68 U/L (10-53); ANION GAP 10 MEQ/L (5-15); AST (GOT) 103 U/L (15-37); BICARBONATE 23.3 MEQ/L (21.0-32.0); BLOOD UREA NITROGEN 9 MG/DL (7-18); CHLORIDE 110 MEQ/L (98-107); GLOMERULAR FILTRATION RATE 96 ML/MIN (>89); POTASSIUM 3.3 MEQ/L (3.5-5.1); SODIUM (NA) 143 MEQ/L (136-145)
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
[2017-05-09 02:10] LABS: ALKALINE PHOSPHATASE 86 U/L (45-117); TOTAL BILIRUBIN ADULT 0.2 MG/DL (0.2-1.0)
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
[2017-05-09 02:15] LABS: ALCOHOL 289 MG/DL (0-5)
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
[2017-05-09] MEDS ORDERED: POTASSIUM CHLORIDE 20 MEQ CONTROLLED RELEASE TAB PO ONE (04:00)
[2017-05-09] MEDS ORDERED: SUCRALFATE 1 GM/10 ML CUP PO ONE (04:00)
[2017-05-09 04:57] LABS: BACTERIA, URINE RARE /hpf; BLOOD, URINE NEG (NEG); COMMENT (UR) CULT NOT INDICATED; CULTURE IF INDICATED CULT NOT INDICATED; GLUCOSE,URINE NEG (NEG); KETONE, URINE NEG (NEG); MUCUS URINE FEW /lpf (OCC); NITRITE,URINE NEG (NEG); SQUAMOUS EPITHELIAL CELL URINE <1 /hpf (0-5); URINE COLOR YELLOW (YELLW/STRAW)
[2017-05-09] MEDS ORDERED: TETANUS/DIPHTHERIA TOXOID ADULT 0.5 ML VIAL IM ONE (05:00)
[2017-05-14] MEDS ORDERED: FOLI1TAB6 PO (13:29)
[2017-05-14] MEDS ORDERED: GNP100TA3 PO (13:29)
[2017-05-14] MEDS ORDERED: THERM PO (13:29)
== END 2017-05-09 07:55 | disposition home or self-care (01) ==
LOC: NEPC 00:35
DX: S00.83XA Contusion of other part of head, initial encounter (principal); K86.0 Alcohol-induced chronic pancreatitis; F10.129 Alcohol abuse with intoxication, unspecified; I10 Essential (primary) hypertension; F20.9 Schizophrenia, unspecified; Y09 Assault by unspecified means; Y90.8 Blood alcohol level of 240 mg/100 ml or more; Z23 Encounter for immunization; Z79.899 Other long term (current) drug therapy
CPT/HCPCS: 70450; 70486; 80053; 80307; 81001; 83690; 84703; 85025; 90471; 90714; 96360; 96361; 99285; J7040

== ENCOUNTER 2017-05-15 03:59 | Emergency (ER) | payer MEDICARE, OTHER ==
[~2017-05-15] VITALS: Ht 157.5 cm; Wt 90.0 kg
[~2017-05-15 03:59] MED LIST changes: +FOLI1TAB6 PO; +GNP100TA3 PO; -RANI150C PO; +THERM PO
[2017-05-15 04:05] VITALS: BP 137/78; PULSE 89; RESP 18; TEMP 98.7; O2SAT 98
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
--- NOTE | 2017-05-15 04:42 | RADRPT ---
EXAM DATE/TIME: 05/15/2017 04:15 [facility] COMPARISON: ABDOMEN FLAT & UPRIGHT, May 12, 2017, 18:02. INDICATIONS : Abdominal pain. Vomiting. MEDICAL HISTORY : Pancreatitis. Gastroesophageal reflux disease. Hypertension. Cardiovascular disease Hypercholest erolemia. SURGICAL HISTORY : Cholecystectomy. ENCOUNTER: Initial ACUITY: 1 day PAIN SCORE: Non-responsive. LOCATION: abdomen. FINDINGS: Supine and upright views of the abdomen were performed. The abdominal bowel gas pattern is normal. No air fluid levels are seen. No abnormal masses, calcifications, or organomegaly is seen. The visu alized lower lungs are clear. No evidence of free intraperitoneal gas. The osseous structures are u nremarkable. There are surgical clips in the right upper quadrant compatible with prior cholecystecto my. CONCLUSION: 1. No evidence of obstruction. Raymundo Butler MD on May 15, 2017 at 4:40 Board Certified Radiologist. This report was verified electronically.
--- NOTE | 2017-05-16 07:44 | EKG ---
Date Performed: 05/15/2017 Time Performed: 04:22:39 PTAGE: 46 years EKG: Sinus rhythm Compared to prior tracing no significant change NORMAL ECG PREVIOUS TRACING : 05/12/2017 18.03 DOCTOR: Doron Bailey Interpretating Date/Time 05/16/2017 07:42:29
== END 2017-05-15 04:40 | disposition home or self-care (01) ==
LOC: NEPE 03:59
DX: R11.2 Nausea with vomiting, unspecified (principal); I10 Essential (primary) hypertension
CPT/HCPCS: 74020; 93005; 99284

== ENCOUNTER 2017-05-16 22:19 | Emergency (ER) | payer MEDICARE, OTHER ==
[~2017-05-16] VITALS: Ht 170.2 cm; Wt 78.0 kg
[2017-05-16 22:33] VITALS: BP 158/103; PULSE 85; RESP 18; TEMP 98.7; O2SAT 99
[2017-05-16 23:58] VITALS: BP 138/89; PULSE 88; RESP 18; TEMP 98; O2SAT 97
[2017-05-17] MEDS ORDERED: SODIUM CHLORIDE 0.9% FLUSH 10 ML FLUSH IV FLUSH PRN (01:00)
[2017-05-17] MEDS ORDERED: ONDANSETRON HCL 4 MG/2 ML VIAL IV PUSH ONE (01:00)
[2017-05-17 01:27] LABS: AUTOMATED NEUTROPHIL # 2.1 TH/MM3 (1.8-7.7); BASOPHIL % 0.8 % (0.0-2.0); EOSINOPHIL # 0.2 TH/MM3 (0-0.4); EOSINOPHIL % 4.4 % (0.0-4.0); HEMATOCRIT 35.1 % (35.0-46.0); HEMO FLAGS DIFF FINAL; LYMPH % 34.9 % (9.0-44.0); LYMPHOCYTE # 1.4 TH/MM3 (1.0-4.8); MEAN CELL VOLUME 90.6 FL (80.0-100.0); MEAN CORPUSCULAR HGB CONC 34.2 % (32.0-36.0); MONO % 8.3 % (0.0-8.0); NEUT % 51.6 % (16.0-70.0); PLATELET COUNT 214 TH/MM3 (150-450); RED BLOOD COUNT 3.87 MIL/MM3 (4.00-5.30); RED CELL DISTRIBUTION WIDTH 14.2 % (11.6-17.2)
[2017-05-17 01:29] LABS: BACTERIA, URINE OCC /hpf; BLOOD, URINE NEG (NEG); COMMENT (UR) CULT NOT INDICATED; CULTURE IF INDICATED CULT NOT INDICATED; GLUCOSE,URINE NEG (NEG); KETONE, URINE NEG (NEG); MUCUS URINE FEW /lpf (OCC); NITRITE,URINE NEG (NEG); SQUAMOUS EPITHELIAL CELL URINE <1 /hpf (0-5); URINE COLOR LIGHT-YELLOW (YELLW/STRAW)
[2017-05-17 01:50] LABS: ALT (GPT) 87 U/L (10-53); ANION GAP 9 MEQ/L (5-15); AST (GOT) 161 U/L (15-37); BLOOD UREA NITROGEN 9 MG/DL (7-18); CHLORIDE 111 MEQ/L (98-107); GLOMERULAR FILTRATION RATE 106 ML/MIN (>89); POTASSIUM 3.4 MEQ/L (3.5-5.1); SODIUM (NA) 144 MEQ/L (136-145)
[2017-05-17 01:52] LABS: ALKALINE PHOSPHATASE 89 U/L (45-117); TOTAL BILIRUBIN ADULT 0.2 MG/DL (0.2-1.0)
--- NOTE | 2017-05-17 03:14 | PD ---
HPI Chief Complaint: Abdominal Pain Time Seen by Provider: 00:59 Travel History International Travel<30 days: No Contact w/Intl Traveler<30days: No Traveled to known affect area: No History of Present Illness HPI 46-year-old female presents to the emergency department for complaint of abdominal pain. Patient has history of acute on chronic and frequently recurrent pancreatitis associated with ongoing alcohol use. Patient continues to drink alcohol even after recent hospitalization for alcohol-induced pancreatitis. Patient denies chest pain shortness of breath vomiting or back pain. Patient does complain of bilateral knee pain that she's had chronically associated with chronic arthritis. Patient states abdominal pain persistent. Patient was just seen in the emergency department 05/15/17 for same complaint and recently hospitalized 05/12/17 pancreatitis. Patient was evaluated by gastroenterologists encouraged to discontinue tobacco use. Patient denies any hematemesis coffee-ground emesis melena hematochezia. Patient denies any injury or fall. PFSH Past Medical History Narrative Medical Arthritis alcoholism pancreatitis; nursing notes reviewed Anemia: Yes Arthritis: Yes (knees) Autoimmune Disease: No Blood Disorders: Yes (ANEMIA) Bipolar Disorder: Yes Anxiety: Yes Depression: Yes Heart Rhythm Problems: No Cancer: No Cardiac Catheterization: No Cardiovascular Problems: Yes High Cholesterol: Yes Chest Pain: Yes Congestive Heart Failure: No Diabetes: No Diminished Hearing: No Endocrine: No Gastrointestinal Disorders: Yes GERD: Yes Genitourinary: No Headaches: Yes Hypertension: Yes Immune Disorder: No Musculoskeletal: Yes Neurologic: Yes (questionable tia's) Psychiatric: Yes (bipolar) Reproductive: No Respiratory: No Migraines: Yes Myocardial Infarction: No Pancreatitis: Yes Renal Failure: No Schizophrenia: Yes Ulcer: No ?: Unknown : 2 Para: 1 : 1 Past Surgical History Abdominal Surgery: Yes (gallbladder) AICD: No Arteriovenous Shunt: No Cardiac Surgery: No Cholecystectomy: Yes Coronary Artery Bypass Graft: No Ear Surgery: No Endocrine Surgery: No Eye Surgery: No Genitourinary Surgery: No Gynecologic Surgery: No Insulin Pump: No Joint Replacement: No Oral Surgery: No Pacemaker: No Thoracic Surgery: No Other Surgery: Yes Social History Alcohol Use: Yes Tobacco Use: No Substance Use: No Allergies-Medications (Allergen,Severity, Reaction): Uncoded Allergies: PAIN MED SENSITIVITY (Allergy, Severe, Nausea/Vomiting, 04/18/17) Reported Meds & Prescriptions Reported Meds & Active Scripts Active Thera M Plus (Multivitamins/Minerals Therapeutic) 1 Tab 1 Tab PO DAILY 30 Days Gnp Vitamin B-1 (Thiamine HCl) 100 Mg Tab 100 Mg PO DAILY 30 Days Folic Acid 1 Mg Tablet 1 Mg PO DAILY 30 Days Omeprazole 40 Mg Cap 40 Mg PO DAILY Nifedipine ER 24 HR (Nifedipine) 60 Mg Tab 60 Mg PO DAILY Reported Ibuprofen 800 Mg Tab 800 Mg PO BID Hydrochlorothiazide 25 Mg Tab 25 Mg PO DAILY Levothyroxine (Levothyroxine Sodium) 125 Mcg Tab 125 Mcg PO DAILY Clonidine (Clonidine HCl) 0.1 Mg Tab 0.1 Mg PO BID Citalopram (Citalopram Hydrobromide) 10 Mg Tab 10 Mg PO DAILY Sucralfate 1 Gram Tab 1 Gm PO TID on empty stomach Review of Systems Except as stated in HPI: all other systems reviewed are Neg Physical Exam Narrative GENERAL: Well-developed well-nourished female cursing complaining about abdominal pain and no oncoming attending to her and knee pain SKIN: Warm and dry. HEAD: Normocephalic. EYES: No scleral icterus. No injection or drainage. NECK: Supple, trachea midline. No JVD or lymphadenopathy. CARDIOVASCULAR: Regular rate and rhythm without murmurs, gallops, or rubs. RESPIRATORY: Breath sounds equal bilaterally. No accessory muscle use. GASTROINTESTINAL: Abdomen soft, epigastric and periumbilical tenderness to palpation, nondistended. MUSCULOSKELETAL: No cyanosis, or edema. BACK: Nontender without obvious deformity. No CVA tenderness. Data Data Last Documented VS Vital Signs Date Time Temp Pulse Resp B/P (MAP) Pulse Ox O2 Delivery O2 Flow Rate FiO2 05/17/17 05:00 66 16 121/69 (86) 96 Room Air 05/16/17 23:58 98.0 Orders Orders Complete Blood Count With Diff (05/17/17 00:51) Comprehensive Metabolic Panel (05/17/17 00:51) Lipase (05/17/17 00:51) Urinalysis - C+S If Indicated (05/17/17 00:51) Iv Access Insert/Monitor (05/17/17 00:51) Ecg Monitoring (05/17/17 00:51) Oximetry (05/17/17 00:51) Sodium Chloride 0.9% Flush (Ns Flush) (05/17/17 01:00) Ondansetron Inj (Zofran Inj) (05/17/17 01:00) Ed Discharge Order (05/17/17 05:49) Labs Laboratory Tests Test 05/17/17 01:10 White Blood Count 4.0 TH/MM3 Red Blood Count 3.87 MIL/MM3 Hemoglobin 12.0 GM/DL Hematocrit 35.1 % Mean Corpuscular Volume 90.6 FL Mean Corpuscular Hemoglobin 31.0 PG Mean Corpuscular Hemoglobin Concent 34.2 % Red Cell Distribution Width 14.2 % Platelet Count 214 TH/MM3 Mean Platelet Volume 7.8 FL Neutrophils (%) (Auto) 51.6 % Lymphocytes (%) (Auto) 34.9 % Monocytes (%) (Auto) 8.3 % Eosinophils (%) (Auto) 4.4 % Basophils (%) (Auto) 0.8 % Neutrophils # (Auto) 2.1 TH/MM3 Lymphocytes # (Auto) 1.4 TH/MM3 Monocytes # (Auto) 0.3 TH/MM3 Eosinophils # (Auto) 0.2 TH/MM3 Basophils # (Auto) 0.0 TH/MM3 CBC Comment DIFF FINAL Differential Comment Urine Color LIGHT-YELLOW Urine Turbidity CLEAR Urine pH 5.0 Urine Specific [place] 1.006 Urine Protein NEG mg/dL Urine Glucose (UA) NEG mg/dL Urine Ketones NEG mg/dL Urine Occult Blood NEG Urine Nitrite NEG Urine Bilirubin NEG Urine Urobilinogen LESS THAN 2.0 MG/DL Urine Leukocyte Esterase NEG Urine RBC LESS THAN 1 /hpf Urine WBC LESS THAN 1 /hpf Urine Squamous Epithelial Cells <1 /hpf Urine Bacteria OCC /hpf Urine Mucus FEW /lpf Microscopic Urinalysis Comment CULT NOT INDICATED Blood Urea Nitrogen 9 MG/DL Creatinine 0.72 MG/DL Random Glucose 83 MG/DL Total Protein 8.1 GM/DL Albumin 3.0 GM/DL Calcium Level 8.1 MG/DL Alkaline Phosphatase 89 U/L Aspartate Amino Transf (AST/SGOT) 161 U/L Alanine Aminotransferase (ALT/SGPT) 87 U/L Total Bilirubin 0.2 MG/DL Sodium Level 144 MEQ/L Potassium Level 3.4 MEQ/L Chloride Level 111 MEQ/L Carbon Dioxide Level 24.0 MEQ/L Anion Gap 9 MEQ/L Estimat Glomerular Filtration Rate 106 ML/MIN Lipase 848 U/L MDM Medical Decision Making Medical Screen Exam Complete: Yes Emergency Medical Condition: Yes Medical Record Reviewed: Yes Interpretation(s) CBC & BMP Diagram 05/17/17 01:10 Total Protein 8.1 #, Albumin 3.0 L, Calcium Level 8.1 L, Alkaline Phosphatase 89 , Aspartate Amino Transf (AST/SGOT) 161 H, Alanine Aminotransferase (ALT/SGPT) 87 H, Total Bilirubin 0.2 Lipase 848 this is increased over the past 2 days Vital Signs Date Time Temp Pulse Resp B/P (MAP) Pulse Ox O2 Delivery O2 Flow Rate FiO2 05/16/17 23:58 98.0 88 18 138/89 (105) 97 Room Air 05/16/17 22:33 98.7 85 18 158/103 (121) 99 Differential Diagnosis abdominal pain pancreatitis gastritis hepatitis colitis alcohol abuse Narrative Course IV access obtained specimens collected and sent for resulting patient sleeping Upon awakening complains of abdominal pain Attempted oral trial of fluids Tolerating oral hydration without increased abdominal pain nausea or vomiting Patient is aware that she has persistent elevation of lipase and that she needs to stop drinking alcohol. Patient recently hospitalized for same complaint and seen by branding machine tender again encouraged her that time to stop drinking alcohol. At time of discharge Diagnosis Primary Impression: Gastritis Additional Impression: Chronic alcoholic pancreatitis [facility] Patient Instructions: General Instructions Shawnee Dominguez MD May 17, 2017 03:14
[2017-05-17 05:00] VITALS: BP 121/69; PULSE 66; RESP 16; O2SAT 96
[2017-05-18] MEDS ORDERED: ZOFR4TAB PO (03:35)
== END 2017-05-17 06:12 | disposition home or self-care (01) ==
LOC: NEPC 22:19
DX: K29.70 Gastritis, unspecified, without bleeding (principal); K86.0 Alcohol-induced chronic pancreatitis; M25.561 Pain in right knee; M25.562 Pain in left knee; I10 Essential (primary) hypertension; E78.00 Pure hypercholesterolemia, unspecified; Z86.2 Personal history of diseases of the blood and blood-forming organs and certain disorders involving the immune mechanism; Z87.39 Personal history of other diseases of the musculoskeletal system and connective tissue; Z86.59 Personal history of other mental and behavioral disorders; Z86.79 Personal history of other diseases of the circulatory system; Z87.19 Personal history of other diseases of the digestive system; Z86.69 Personal history of other diseases of the nervous system and sense organs
CPT/HCPCS: 80053; 81001; 83690; 85025; 96374; 99284; J2405

== ENCOUNTER 2017-05-17 22:52 | Emergency (ER) | payer MEDICARE, OTHER ==
[~2017-05-17] VITALS: Ht 167.6 cm; Wt 80.0 kg
[2017-05-17 23:00] VITALS: BP 181/112; PULSE 98; RESP 16
[2017-05-17] MEDS ORDERED: SODIUM CHLORIDE 0.9% FLUSH 10 ML FLUSH IV FLUSH PRN (23:00)
[2017-05-17 23:53] LABS: ALKALINE PHOSPHATASE 96 U/L (45-117); TOTAL BILIRUBIN ADULT 0.3 MG/DL (0.2-1.0)
[2017-05-17 23:54] LABS: AUTOMATED NEUTROPHIL # 2.8 TH/MM3 (1.8-7.7); BASOPHIL % 0.7 % (0.0-2.0); EOSINOPHIL # 0.1 TH/MM3 (0-0.4); EOSINOPHIL % 2.6 % (0.0-4.0); HEMATOCRIT 36.7 % (35.0-46.0); HEMO FLAGS DIFF FINAL; LYMPHOCYTE # 1.5 TH/MM3 (1.0-4.8); MEAN CELL VOLUME 91.6 FL (80.0-100.0); MEAN CORPUSCULAR HEMOGLOBIN 30.7 PG (27.0-34.0); MEAN CORPUSCULAR HGB CONC 33.5 % (32.0-36.0); MONO % 9.2 % (0.0-8.0); NEUT % 56.5 % (16.0-70.0); PLATELET COUNT 225 TH/MM3 (150-450); RED CELL DISTRIBUTION WIDTH 13.7 % (11.6-17.2); WHITE BLOOD COUNT 4.9 TH/MM3 (4.0-11.0)
[2017-05-17 23:58] LABS: ALT (GPT) 90 U/L (10-53); ANION GAP 8 MEQ/L (5-15); AST (GOT) 172 U/L (15-37); BICARBONATE 25.4 MEQ/L (21.0-32.0); BLOOD UREA NITROGEN 10 MG/DL (7-18); CHLORIDE 110 MEQ/L (98-107); GLOMERULAR FILTRATION RATE 96 ML/MIN (>89); POTASSIUM 3.8 MEQ/L (3.5-5.1); SODIUM (NA) 143 MEQ/L (136-145)
[2017-05-18] MEDS ORDERED: ALUMINUM/MAGNESIUM/SIMETH 30 ML CUP PO ONE (02:15)
[2017-05-18] MEDS ORDERED: ONDANSETRON HCL 4 MG/2 ML VIAL IVP ONE (02:15)
[2017-05-18] MEDS ORDERED: LIDOCAINE VISCOUS 2% SOLN 15 ML UDC PO ONE (02:15)
--- NOTE | 2017-05-18 02:22 | PD ---
HPI Chief Complaint: Abdominal Pain Time Seen by Provider: 23:07 Travel History International Travel<30 days: No Contact w/Intl Traveler<30days: No Traveled to known affect area: No History of Present Illness HPI patient is a 46-year-old female who was seen here yesterday for similar complaints. Has a history of recurrent pancreatitis alcohol related. Patient states she's not been able to tolerate any by mouth except for alcohol. She is intoxicated here currently. She states that "I know what's wrong with me and theirs no sense lyting to you, it's my pain." PFSH Past Medical History Medical History: Denies Significant Hx Anemia: Yes Arthritis: Yes (knees) Autoimmune Disease: No Blood Disorders: Yes (ANEMIA) Bipolar Disorder: Yes Anxiety: Yes Depression: Yes Heart Rhythm Problems: No Cancer: No Cardiac Catheterization: No Cardiovascular Problems: Yes High Cholesterol: Yes Chest Pain: Yes Congestive Heart Failure: No Diabetes: No Diminished Hearing: No Endocrine: No Gastrointestinal Disorders: Yes GERD: Yes Genitourinary: No Headaches: Yes Hypertension: Yes Immune Disorder: No Musculoskeletal: Yes Neurologic: Yes (questionable tia's) Psychiatric: Yes (bipolar) Reproductive: No Respiratory: No Migraines: Yes Myocardial Infarction: No Pancreatitis: Yes Renal Failure: No Schizophrenia: Yes Ulcer: No ?: Not : 2 Para: 1 : 1 Past Surgical History Surgical History: No Previous Surgery Abdominal Surgery: Yes (gallbladder) AICD: No Arteriovenous Shunt: No Cardiac Surgery: No Cholecystectomy: Yes Coronary Artery Bypass Graft: No Ear Surgery: No Endocrine Surgery: No Eye Surgery: No Genitourinary Surgery: No Gynecologic Surgery: No Insulin Pump: No Joint Replacement: No Oral Surgery: No Pacemaker: No Thoracic Surgery: No Other Surgery: Yes Social History Alcohol Use: No Tobacco Use: No Substance Use: No Allergies-Medications (Allergen,Severity, Reaction): Coded Allergies: No Known Allergies (Unverified , 05/17/17) Reported Meds & Prescriptions Reported Meds & Active Scripts Active Zofran (Ondansetron HCl) 4 Mg Tab 4 Mg PO Q6HR PRN Thera M Plus (Multivitamins/Minerals Therapeutic) 1 Tab 1 Tab PO DAILY 30 Days Gnp Vitamin B-1 (Thiamine HCl) 100 Mg Tab 100 Mg PO DAILY 30 Days Folic Acid 1 Mg Tablet 1 Mg PO DAILY 30 Days Omeprazole 40 Mg Cap 40 Mg PO DAILY Nifedipine ER 24 HR (Nifedipine) 60 Mg Tab 60 Mg PO DAILY Reported Ibuprofen 800 Mg Tab 800 Mg PO BID Hydrochlorothiazide 25 Mg Tab 25 Mg PO DAILY Levothyroxine (Levothyroxine Sodium) 125 Mcg Tab 125 Mcg PO DAILY Clonidine (Clonidine HCl) 0.1 Mg Tab 0.1 Mg PO BID Citalopram (Citalopram Hydrobromide) 10 Mg Tab 10 Mg PO DAILY Sucralfate 1 Gram Tab 1 Gm PO TID on empty stomach Review of Systems Except as stated in HPI: all other systems reviewed are Neg Physical Exam Narrative GENERAL: WD/WN intoxicated, bordering on belligerent. SKIN: Warm and dry. HEAD: Atraumatic. Normocephalic. EYES: Pupils equal and round. No scleral icterus. No injection or drainage. ENT: No nasal bleeding or discharge. Mucous membranes pink and moist. NECK: Trachea midline. No JVD. CARDIOVASCULAR: Regular rate and rhythm. RESPIRATORY: No accessory muscle use. Clear to auscultation. Breath sounds equal bilaterally. GASTROINTESTINAL: Abdomen soft, non-tender, nondistended. Hepatic and splenic margins not palpable. MUSCULOSKELETAL: Extremities without clubbing, cyanosis, or edema. No obvious deformities. NEUROLOGICAL: Awake and alert. No obvious cranial nerve deficits. Motor grossly within normal limits. Five out of 5 muscle strength in the arms and legs. Normal speech. PSYCHIATRIC: Appropriate mood and affect; insight and judgment normal. Data Data Last Documented VS Vital Signs Date Time Temp Pulse Resp B/P (MAP) Pulse Ox O2 Delivery O2 Flow Rate FiO2 05/17/17 23:20 17 05/17/17 23:00 98 181/112 (135) Orders Orders Complete Blood Count With Diff (05/17/17 22:55) Comprehensive Metabolic Panel (05/17/17 22:55) Lipase (05/17/17 22:55) Iv Access Insert/Monitor (05/17/17 22:55) Ecg Monitoring (05/17/17 22:55) Oximetry (05/17/17 22:55) Sodium Chloride 0.9% Flush (Ns Flush) (05/17/17 23:00) Ondansetron Inj (Zofran Inj) (05/18/17 02:15) Al-Mag Hy-Si 40-40-4 Mg/Ml Liq (Mag-Al P (05/18/17 02:15) Lidocaine 2% Viscous (Xylocaine 2% Visco (05/18/17 02:15) Ed Discharge Order (05/18/17 03:35) Labs Laboratory Tests Test 05/17/17 23:16 White Blood Count 4.9 TH/MM3 Red Blood Count 4.00 MIL/MM3 Hemoglobin 12.3 GM/DL Hematocrit 36.7 % Mean Corpuscular Volume 91.6 FL Mean Corpuscular Hemoglobin 30.7 PG Mean Corpuscular Hemoglobin Concent 33.5 % Red Cell Distribution Width 13.7 % Platelet Count 225 TH/MM3 Mean Platelet Volume 8.3 FL Neutrophils (%) (Auto) 56.5 % Lymphocytes (%) (Auto) 31.0 % Monocytes (%) (Auto) 9.2 % Eosinophils (%) (Auto) 2.6 % Basophils (%) (Auto) 0.7 % Neutrophils # (Auto) 2.8 TH/MM3 Lymphocytes # (Auto) 1.5 TH/MM3 Monocytes # (Auto) 0.5 TH/MM3 Eosinophils # (Auto) 0.1 TH/MM3 Basophils # (Auto) 0.0 TH/MM3 CBC Comment DIFF FINAL Differential Comment Blood Urea Nitrogen 10 MG/DL Creatinine 0.79 MG/DL Random Glucose 100 MG/DL Total Protein 8.9 GM/DL Albumin 3.3 GM/DL Calcium Level 8.3 MG/DL Alkaline Phosphatase 96 U/L Aspartate Amino Transf (AST/SGOT) 172 U/L Alanine Aminotransferase (ALT/SGPT) 90 U/L Total Bilirubin 0.3 MG/DL Sodium Level 143 MEQ/L Potassium Level 3.8 MEQ/L Chloride Level 110 MEQ/L Carbon Dioxide Level 25.4 MEQ/L Anion Gap 8 MEQ/L Estimat Glomerular Filtration Rate 96 ML/MIN Lipase 890 U/L [facility] Medical Decision Making Medical Screen Exam Complete: Yes Emergency Medical Condition: Yes Differential Diagnosis Pancreatitis, gastritis, gastroenteritis, dehydration, intoxication. Narrative Course Patient roomed emergency department, given Zofran, a GI cocktail was ordered patient refused. She was then able to tolerate by mouth fluids. Her labs reviewed and lipase is unchanged from yesterday. She was urged to Discontinue drinking, and this time she is able tolerate by mouth fluids with unchanged lipase there is no indication for admission at this time. Discussed symptomatic management home and returned ED criteria. Diagnosis Primary Impression: Epigastric abdominal pain Med/Other Pt SpecificInfo: Prescription(s) given Scripts Ondansetron (Zofran) 4 Mg Tab 4 MG PO Q6HR Y for NAUSEA OR VOMITING, #10 TAB 0 Refills Prov: Lev Lane MD 05/18/17 Disposition: 01 DISCHARGE HOME Condition: Stable Lev Lane MD May 18, 2017 02:22
[2017-05-18] MEDS ORDERED: ZOFR4TAB PO (03:35)
== END 2017-05-18 04:01 | disposition home or self-care (01) ==
LOC: NEPE 22:52
DX: R10.13 Epigastric pain (principal); F10.129 Alcohol abuse with intoxication, unspecified; M17.0 Bilateral primary osteoarthritis of knee; E78.00 Pure hypercholesterolemia, unspecified; I10 Essential (primary) hypertension
CPT/HCPCS: 80053; 83690; 85025; 96374; 99284; J2405

== ENCOUNTER 2017-05-19 17:56 | Emergency (ER) | payer MEDICARE, OTHER ==
[~2017-05-19] VITALS: Ht 167.6 cm; Wt 100.0 kg
[~2017-05-19 17:56] MED LIST changes: +ZOFR4TAB PO
[2017-05-19 18:08] VITALS: BP 180/99; PULSE 89; RESP 18; TEMP 98.5; O2SAT 98
[2017-05-19] MEDS ORDERED: ONDANSETRON ODT 4 MG TAB PO ONE (18:15)
[2017-05-19] MEDS ORDERED: RANITIDINE HCL SYRUP 150 MG/10 ML UDC PO ONE (18:15)
--- NOTE | 2017-05-19 18:30 | PD ---
HPI Chief Complaint: Alcohol/Drug Intoxication Time Seen by Provider: 17:59 Travel History International Travel<30 days: No Contact w/Intl Traveler<30days: No Traveled to known affect area: No History of Present Illness HPI So 46-year-old woman who presents emergency department complaining of intoxication and vomiting. She is well-known to the emergency department has had visits every other day or so for similar symptoms. She states she can eat or drink and when she tries to stop drinking alcohol her symptoms don't improve. History Past Medical History Narrative Medical Gastritis Alcoholism : 2 Para: 1 Social History Alcohol Use: Yes Tobacco Use: No Allergies-Medications (Allergen,Severity, Reaction): Coded Allergies: No Known Allergies (Unverified , 05/17/17) Reported Meds & Prescriptions Reported Meds & Active Scripts Active Zofran (Ondansetron HCl) 4 Mg Tab 4 Mg PO Q6HR PRN Thera M Plus (Multivitamins/Minerals Therapeutic) 1 Tab 1 Tab PO DAILY 30 Days Gnp Vitamin B-1 (Thiamine HCl) 100 Mg Tab 100 Mg PO DAILY 30 Days Folic Acid 1 Mg Tablet 1 Mg PO DAILY 30 Days Omeprazole 40 Mg Cap 40 Mg PO DAILY Nifedipine ER 24 HR (Nifedipine) 60 Mg Tab 60 Mg PO DAILY Reported Ibuprofen 800 Mg Tab 800 Mg PO BID Hydrochlorothiazide 25 Mg Tab 25 Mg PO DAILY Levothyroxine (Levothyroxine Sodium) 125 Mcg Tab 125 Mcg PO DAILY Clonidine (Clonidine HCl) 0.1 Mg Tab 0.1 Mg PO BID Citalopram (Citalopram Hydrobromide) 10 Mg Tab 10 Mg PO DAILY Sucralfate 1 Gram Tab 1 Gm PO TID on empty stomach Review of Systems Except as stated in HPI: all other systems reviewed are Neg Physical Exam Narrative GENERAL: 46 year-old woman/elbow, intermittently retching little bit. SKIN: Focused skin assessment warm/dry. HEAD: Atraumatic. Normocephalic. CARDIOVASCULAR: Warm and well perfused. RESPIRATORY: Normal rate and effort. GASTROINTESTINAL: Abdomen is obese and soft. Mild epigastric tenderness. MUSCULOSKELETAL: No obvious deformities. No clubbing. No cyanosis. No edema. NEUROLOGICAL: Awake and alert. No obvious cranial nerve deficits. Motor grossly within normal limits. Speech is a little bit slurred. Data Data Last Documented VS Vital Signs Date Time Temp Pulse Resp B/P (MAP) Pulse Ox O2 Delivery O2 Flow Rate FiO2 05/19/17 18:08 98.5 89 18 180/99 (126) 98 Room Air Orders Orders Ondansetron Odt (Zofran Odt) (05/19/17 18:15) Ranitidine Liq (Zantac Liq) (05/19/17 18:15) MDM Medical Decision Making Medical Screen Exam Complete: Yes Emergency Medical Condition: Yes Differential Diagnosis Gastritis, pancreatitis, intoxication, other Narrative Course Medical decision-making new 46 year-old woman with gastritis related to alcohol use and some retching now. Many many previous ED or evaluations. These are reviewed. Recommend alcohol cessation, antacids. Diagnosis Primary Impression: Epigastric abdominal pain Additional Instructions: Avoid alcohol as it will worsen or gastritis. Take [id number] Zantac as needed. Med/Other Pt SpecificInfo: No Change to Meds Disposition: 01 DISCHARGE HOME Condition: Stable Abe Benavidez MD May 19, 2017 18:30
== END 2017-05-19 19:32 | disposition home or self-care (01) ==
LOC: NEPD 17:56
DX: R10.13 Epigastric pain (principal)
CPT/HCPCS: 99283

== ENCOUNTER 2017-06-02 01:37 | Emergency (ER) | payer MEDICARE, OTHER ==
[~2017-06-02 01:37] MED LIST changes: -GNP100TA3 PO; +IBUP1TAB7 PO; -IBUP800T23 PO; +THIA100 PO
[2017-06-02 01:51] VITALS: BP 156/110; PULSE 80; RESP 16; TEMP 97.3; O2SAT 98
[2017-06-02] MEDS ORDERED: ONDANSETRON HCL 4 MG/2 ML VIAL IV PUSH ONE (02:15)
[2017-06-02] MEDS ORDERED: SODIUM CHLOR 0.9% 1000 ML INJ 1,000 ML IV ONE (02:15)
[2017-06-02 02:41] LABS: AUTOMATED NEUTROPHIL # 1.5 TH/MM3 (1.8-7.7); EOSINOPHIL # 0.1 TH/MM3 (0-0.4); EOSINOPHIL % 3.1 % (0.0-4.0); HEMATOCRIT 36.4 % (35.0-46.0); HEMO FLAGS DIFF FINAL; LYMPH % 44.2 % (9.0-44.0); LYMPHOCYTE # 1.7 TH/MM3 (1.0-4.8); MEAN CELL VOLUME 91.4 FL (80.0-100.0); MEAN CORPUSCULAR HEMOGLOBIN 30.4 PG (27.0-34.0); MEAN CORPUSCULAR HGB CONC 33.3 % (32.0-36.0); MONO % 12.9 % (0.0-8.0); NEUT % 38.8 % (16.0-70.0); PLATELET COUNT 208 TH/MM3 (150-450); RED BLOOD COUNT 3.98 MIL/MM3 (4.00-5.30); RED CELL DISTRIBUTION WIDTH 13.3 % (11.6-17.2); WHITE BLOOD COUNT 3.9 TH/MM3 (4.0-11.0)
--- NOTE | 2017-06-02 02:57 | PD ---
HPI Chief Complaint: Abdominal Pain Time Seen by Provider: 02:05 Travel History International Travel<30 days: No Contact w/Intl Traveler<30days: No Traveled to known affect area: No History of Present Illness HPI 46-year-old black female with a known history of chronic alcohol abuse and chronic pancreatitis returns again by EMS with similar complaints. She admits to drinking alcohol today. She states that she cannot keep anything down due to her vomiting. She is complaining of diffuse abdominal pain. Mild to moderate intensity. No alleviating factors. Exacerbated by alcohol. No suicidal or homicidal ideation. No toxic ingestions. No fever chills. No urinary symptoms. PFSH Past Medical History Anemia: Yes Arthritis: Yes (knees) Autoimmune Disease: No Blood Disorders: Yes (ANEMIA) Bipolar Disorder: Yes Anxiety: Yes Depression: Yes Heart Rhythm Problems: No Cancer: No Cardiac Catheterization: No Cardiovascular Problems: Yes High Cholesterol: Yes Chest Pain: Yes Congestive Heart Failure: No Diabetes: No Diminished Hearing: No Endocrine: No Gastrointestinal Disorders: Yes GERD: Yes Genitourinary: No Headaches: Yes Heparin Induced Thrombocytopen: No Hypertension: Yes Immune Disorder: No Implanted Vascular Access Dvce: No Musculoskeletal: Yes Neurologic: Yes (questionable tia's) Psychiatric: Yes (bipolar) Reproductive: No Respiratory: No Immunizations Current: No (UNKNOWN) Migraines: Yes Myocardial Infarction: No Pancreatitis: Yes Renal Failure: No Schizophrenia: Yes Ulcer: No Tetanus Vaccination: < 5 Years Influenza Vaccination: Yes ?: Unknown : 2 Para: 1 : 1 Past Surgical History Abdominal Surgery: Yes (gallbladder) AICD: No Arteriovenous Shunt: No Cardiac Surgery: No Cholecystectomy: Yes Coronary Artery Bypass Graft: No Ear Surgery: No Endocrine Surgery: No Eye Surgery: No Genitourinary Surgery: No Gynecologic Surgery: No Insulin Pump: No Joint Replacement: No Neurologic Surgery: No Oral Surgery: No Pacemaker: No Thoracic Surgery: No Other Surgery: Yes Family History Family Myocardial Infarction: No Social History Alcohol Use: Yes Tobacco Use: No Substance Use: No Allergies-Medications (Allergen,Severity, Reaction): Coded Allergies: No Known Allergies (Unverified Adverse Reaction, Unknown, 06/02/17) Reported Meds & Prescriptions Reported Meds & Active Scripts Active Zofran (Ondansetron HCl) 4 Mg Tab 4 Mg PO Q6HR PRN Thera M Plus (Multivitamins/Minerals Therapeutic) 1 Tab 1 Tab PO DAILY 30 Days Gnp Vitamin B-1 (Thiamine HCl) 100 Mg Tab 100 Mg PO DAILY 30 Days Folic Acid 1 Mg Tablet 1 Mg PO DAILY 30 Days Omeprazole 40 Mg Cap 40 Mg PO DAILY Nifedipine ER 24 HR (Nifedipine) 60 Mg Tab 60 Mg PO DAILY Reported Ibuprofen 800 Mg Tab 800 Mg PO BID Hydrochlorothiazide 25 Mg Tab 25 Mg PO DAILY Levothyroxine (Levothyroxine Sodium) 125 Mcg Tab 125 Mcg PO DAILY Clonidine (Clonidine HCl) 0.1 Mg Tab 0.1 Mg PO BID Citalopram (Citalopram Hydrobromide) 10 Mg Tab 10 Mg PO DAILY Sucralfate 1 Gram Tab 1 Gm PO TID on empty stomach Review of Systems ROS Limitations: Intoxication, Poor Historian Physical Exam Narrative GENERAL: Well-developed, well-nourished in no apparent distress. Nontoxic appearing. Appears intoxicated. Smells of EtOH. Patient has vomited in the examination room. HEAD: Normocephalic, atraumatic. EYES: Pupils equal round and reactive. Extraocular motions intact. No scleral icterus. No injection or drainage. ENT: Nose clear. Throat without erythema, tonsillar hypertrophy or exudate. Uvula midline. Airway patent. NECK: Trachea midline. Supple, nontender, moves head freely. No central bony tenderness or spasm. CARDIOVASCULAR: Regular rate and rhythm without murmurs, gallops, or rubs. RESPIRATORY: Clear to auscultation. Breath sounds equal bilaterally. No wheezes , rales, or rhonchi. GASTROINTESTINAL: Abdomen soft, mild diffuse tenderness, nondistended. No hepato -splenomegaly, or palpable masses. No guarding. EXTREMITIES: No clubbing, cyanosis, or edema. No joint tenderness. BACK: Nontender without deformity. No flank tenderness. NEUROLOGICAL: Awake, alert and oriented x 3 .Cranial nerves grossly intact. Motor and sensory grossly within normal limits. Slurred speech. Data Data Last Documented VS Vital Signs Date Time Temp Pulse Resp B/P (MAP) Pulse Ox O2 Delivery O2 Flow Rate FiO2 06/02/17 01:51 97.3 80 16 156/110 (125) 98 Orders Orders Complete Blood Count With Diff (06/02/17 02:05) Comprehensive Metabolic Panel (06/02/17 02:05) Lipase (06/02/17 02:05) Ua Includes Microscopic (06/02/17 02:05) Iv Access Insert/Monitor (06/02/17 02:05) Drug Screen, Random Urine (06/02/17 02:05) Alcohol (Ethanol) (06/02/17 02:05) Sodium Chlor 0.9% 1000 Ml Inj (Ns 1000 M (06/02/17 02:15) Ondansetron Inj (Zofran Inj) (06/02/17 02:15) Labs Laboratory Tests Test 06/02/17 02:15 06/02/17 04:10 White Blood Count 3.9 TH/MM3 Red Blood Count 3.98 MIL/MM3 Hemoglobin 12.1 GM/DL Hematocrit 36.4 % Mean Corpuscular Volume 91.4 FL Mean Corpuscular Hemoglobin 30.4 PG Mean Corpuscular Hemoglobin Concent 33.3 % Red Cell Distribution Width 13.3 % Platelet Count 208 TH/MM3 Mean Platelet Volume 7.9 FL Neutrophils (%) (Auto) 38.8 % Lymphocytes (%) (Auto) 44.2 % Monocytes (%) (Auto) 12.9 % Eosinophils (%) (Auto) 3.1 % Basophils (%) (Auto) 1.0 % Neutrophils # (Auto) 1.5 TH/MM3 Lymphocytes # (Auto) 1.7 TH/MM3 Monocytes # (Auto) 0.5 TH/MM3 Eosinophils # (Auto) 0.1 TH/MM3 Basophils # (Auto) 0.0 TH/MM3 CBC Comment DIFF FINAL Differential Comment Blood Urea Nitrogen 8 MG/DL Creatinine 0.64 MG/DL Random Glucose 112 MG/DL Total Protein 8.4 GM/DL Albumin 3.2 GM/DL Calcium Level 8.1 MG/DL Alkaline Phosphatase 98 U/L Aspartate Amino Transf (AST/SGOT) 207 U/L Alanine Aminotransferase (ALT/SGPT) 113 U/L Total Bilirubin 0.2 MG/DL Sodium Level 138 MEQ/L Potassium Level 3.4 MEQ/L Chloride Level 104 MEQ/L Carbon Dioxide Level 23.3 MEQ/L Anion Gap 11 MEQ/L Estimat Glomerular Filtration Rate 122 ML/MIN Lipase 611 U/L Ethyl Alcohol Level 371 MG/DL Urine Color LIGHT-YELLOW Urine Turbidity HAZY Urine pH 5.0 Urine Specific [place] 1.005 Urine Protein NEG mg/dL Urine Glucose (UA) NEG mg/dL Urine Ketones NEG mg/dL Urine Occult Blood NEG Urine Nitrite NEG Urine Bilirubin NEG Urine Urobilinogen LESS THAN 2.0 MG/DL Urine Leukocyte Esterase NEG Urine RBC 2 /hpf Urine WBC 1 /hpf Urine Squamous Epithelial Cells 2 /hpf Urine Amorphous Sediment RARE Urine Bacteria RARE /hpf Urine Mucus FEW /lpf MDM Medical Decision Making Medical Screen Exam Complete: Yes Emergency Medical Condition: Yes Medical Record Reviewed: Yes Interpretation(s) Laboratory Tests Test 06/02/17 02:15 06/02/17 04:10 White Blood Count 3.9 TH/MM3 Red Blood Count 3.98 MIL/MM3 Hemoglobin 12.1 GM/DL Hematocrit 36.4 % Mean Corpuscular Volume 91.4 FL Mean Corpuscular Hemoglobin 30.4 PG Mean Corpuscular Hemoglobin Concent 33.3 % Red Cell Distribution Width 13.3 % Platelet Count 208 TH/MM3 Mean Platelet Volume 7.9 FL Neutrophils (%) (Auto) 38.8 % Lymphocytes (%) (Auto) 44.2 % Monocytes (%) (Auto) 12.9 % Eosinophils (%) (Auto) 3.1 % Basophils (%) (Auto) 1.0 % Neutrophils # (Auto) 1.5 TH/MM3 Lymphocytes # (Auto) 1.7 TH/MM3 Monocytes # (Auto) 0.5 TH/MM3 Eosinophils # (Auto) 0.1 TH/MM3 Basophils # (Auto) 0.0 TH/MM3 CBC Comment DIFF FINAL Differential Comment Blood Urea Nitrogen 8 MG/DL Creatinine 0.64 MG/DL Random Glucose 112 MG/DL Total Protein 8.4 GM/DL Albumin 3.2 GM/DL Calcium Level 8.1 MG/DL Alkaline Phosphatase 98 U/L Aspartate Amino Transf (AST/SGOT) 207 U/L Alanine Aminotransferase (ALT/SGPT) 113 U/L Total Bilirubin 0.2 MG/DL Sodium Level 138 MEQ/L Potassium Level 3.4 MEQ/L Chloride Level 104 MEQ/L Carbon Dioxide Level 23.3 MEQ/L Anion Gap 11 MEQ/L Estimat Glomerular Filtration Rate 122 ML/MIN Lipase 611 U/L Ethyl Alcohol Level 371 MG/DL Differential Diagnosis Differential diagnoses: Abdominal pain, pancreatitis, hepatitis, UTI, electrolyte abnormality Narrative Course IV access is obtained. Patient is given 1 L bolus of saline, 8 mg of Zofran IV. The patient has been up and ambulatory to the bathroom. She is taking by mouth. This is alcohol intoxication, acute pancreatitis Diagnosis Primary Impression: Pancreatitis Qualified Codes: K85.20 - Alcohol induced acute pancreatitis without necrosis or infection Additional Impression: Alcohol intoxication Qualified Codes: F10.920 - Alcohol use, unspecified with intoxication, uncomplicated Patient Instructions: General Instructions Additional Instructions: Rest. Increase fluids. Avoid alcohol. Avoid illegal substances. Follow-up with [facility] for detox. Do not operate a car or any heavy machinery under the influence of alcohol or drugs. Follow-up with a medical doctor this week. Return to the ER for emergencies Med/Other Pt SpecificInfo: Prescription(s) given Disposition: 01 DISCHARGE HOME Floyd Gambino Jun 02, 2017 02:57
[2017-06-02 03:09] LABS: ANION GAP 11 MEQ/L (5-15)
[2017-06-02 03:38] LABS: ALKALINE PHOSPHATASE 98 U/L (45-117); ALT (GPT) 113 U/L (10-53); AST (GOT) 207 U/L (15-37); BICARBONATE 23.3 MEQ/L (21.0-32.0); BLOOD UREA NITROGEN 8 MG/DL (7-18); CHLORIDE 104 MEQ/L (98-107); GLOMERULAR FILTRATION RATE 122 ML/MIN (>89); POTASSIUM 3.4 MEQ/L (3.5-5.1); SODIUM (NA) 138 MEQ/L (136-145); TOTAL BILIRUBIN ADULT 0.2 MG/DL (0.2-1.0)
[2017-06-02 03:39] LABS: ALCOHOL 371 MG/DL (0-5)
[2017-06-02 04:24] LABS: BACTERIA, URINE RARE /hpf; BLOOD, URINE NEG (NEG); GLUCOSE,URINE NEG (NEG); KETONE, URINE NEG (NEG); MUCUS URINE FEW /lpf (OCC); NITRITE,URINE NEG (NEG); SQUAMOUS EPITHELIAL CELL URINE 2 /hpf (0-5); URINE COLOR LIGHT-YELLOW (YELLW/STRAW)
[2017-06-02 06:07] VITALS: BP 136/72; PULSE 78; RESP 18; O2SAT 98
[2017-06-02] MEDS ORDERED: PROT40TA PO (06:58)
[2017-06-02] MEDS ORDERED: ZOFR4TAB3 SL (06:58)
== END 2017-06-02 11:10 | disposition home or self-care (01) ==
LOC: NEPD 01:37
DX: K85.90 Acute pancreatitis without necrosis or infection, unspecified (principal); F10.129 Alcohol abuse with intoxication, unspecified; I10 Essential (primary) hypertension; D64.9 Anemia, unspecified; Z79.899 Other long term (current) drug therapy
CPT/HCPCS: 80053; 80307; 81001; 83690; 85025; 96361; 96374; 99284; J2405; J7030

== ENCOUNTER 2017-06-28 15:45 | Emergency (ER) | payer MEDICARE, OTHER ==
[~2017-06-28] VITALS: Ht 167.6 cm; Wt 75.0 kg
[~2017-06-28 15:45] MED LIST changes: +PROT40TA PO; +ZOFR4TAB3 SL
[2017-06-28 16:15] VITALS: BP 175/98; PULSE 77; RESP 18; TEMP 97.9; O2SAT 98
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
[2017-06-28] MEDS ORDERED: IBUP1TAB7 PO (17:20)
[2017-06-28] MEDS ORDERED: IBUPROFEN 800 MG TAB PO ONE (17:30)
[2017-06-28] MEDS ORDERED: TETANUS/DIPHTHERIA TOXOID ADULT 0.5 ML VIAL IM ONE (17:30)
== END 2017-06-28 17:59 | disposition home or self-care (01) ==
LOC: NEPD 15:45
DX: S00.511A Abrasion of lip, initial encounter (principal); Y04.0XXA Assault by unarmed brawl or fight, initial encounter; Z23 Encounter for immunization
CPT/HCPCS: 90471; 90714

== ENCOUNTER 2017-12-21 18:51 | Emergency (ER) | payer MEDICARE, OTHER ==
[~2017-12-21] VITALS: Ht 167.6 cm; Wt 75.0 kg
[2017-12-21 19:06] VITALS: BP 180/94; PULSE 106; RESP 20; TEMP 99.5; O2SAT 98
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
[2017-12-21 19:40] LABS: AUTOMATED NEUTROPHIL # 1.9 TH/MM3 (1.8-7.7); BASOPHIL % 0.7 % (0.0-2.0); EOSINOPHIL # 0.1 TH/MM3 (0-0.4); EOSINOPHIL % 1.6 % (0.0-4.0); HEMATOCRIT 35.2 % (35.0-46.0); LYMPH % 47.1 % (9.0-44.0); LYMPHOCYTE # 2.2 TH/MM3 (1.0-4.8); MEAN CELL VOLUME 89.1 FL (80.0-100.0); MEAN CORPUSCULAR HEMOGLOBIN 30.3 PG (27.0-34.0); MEAN PLATELET VOLUME 7.4 FL (7.0-11.0); MONO % 9.3 % (0.0-8.0); MONOCYTE # 0.4 TH/MM3 (0-0.9); NEUT % 41.3 % (16.0-70.0); PLATELET COUNT 311 TH/MM3 (150-450); RED BLOOD COUNT 3.95 MIL/MM3 (4.00-5.30); WHITE BLOOD COUNT 4.6 TH/MM3 (4.0-11.0)
[2017-12-21 19:51] LABS: BILIRUBIN, URINE NEG (NEG); BLOOD, URINE NEG (NEG); GLUCOSE,URINE NEG (NEG); HYALINE CAST, URINE 11 /lpf (RARE); KETONE, URINE NEG (NEG); MUCUS URINE FEW /lpf (OCC); NITRITE,URINE NEG (NEG); SQUAMOUS EPITHELIAL CELL URINE 9 /hpf (0-5); URINE COLOR YELLOW (YELLW/STRAW); URINE LEUKOCYTE ESTERASE SMALL (NEG)
[2017-12-21 19:57] LABS: ALBUMIN 3.6 GM/DL (3.4-5.0); AST (GOT) 78 U/L (15-37); BICARBONATE 24.3 MEQ/L (21.0-32.0); BLOOD UREA NITROGEN 10 MG/DL (7-18); CALCIUM 8.4 MG/DL (8.5-10.1); CHLORIDE 104 MEQ/L (98-107); CREATININE 0.87 MG/DL (0.50-1.00); GLOMERULAR FILTRATION RATE 85 ML/MIN (>89); GLUCOSE,RANDOM 118 MG/DL (74-106); SODIUM (NA) 139 MEQ/L (136-145)
[2017-12-21 20:08] LABS: ALKALINE PHOSPHATASE 94 U/L (45-117); ALT (GPT) 54 U/L (10-53); TOTAL BILIRUBIN ADULT 0.2 MG/DL (0.2-1.0); TOTAL PROTEIN 9.4 GM/DL (6.4-8.2)
[2017-12-22 02:11] VITALS: BP 139/70; PULSE 97; RESP 17; TEMP 99.6; O2SAT 98
[2017-12-22 02:28] VITALS: BP 139/70; PULSE 97; RESP 17; TEMP 99.6; O2SAT 98
[2017-12-22 06:35] VITALS: BP 154/87; PULSE 76; RESP 18; TEMP 98.6; O2SAT 95
--- NOTE | 2017-12-22 08:47 | PD ---
Physical Exam Date Seen by Provider: December 22, 2017 Narrative 47-year-old female presented to the emergency department with suicide ideations. She was evaluated by the initial provider and medically cleared to see psych. Psych has lifted her Scruggs act and she will be discharged home. I discussed with the patient's that she had to have a place to go home and she would walk home. Data Data Last Documented VS Vital Signs Date Time Temp Pulse Resp B/P (MAP) Pulse Ox O2 Delivery O2 Flow Rate FiO2 12/22/17 06:35 98.6 76 18 154/87 (109) 95 Room Air Orders Orders Complete Blood Count With Diff (12/21/17 19:08) Comprehensive Metabolic Panel (12/21/17 19:08) Thyroid Stimulating Hormone (12/21/17 19:08) Urinalysis - C+S If Indicated (12/21/17 19:08) Ed Urine Pregnancytest Poc (12/21/17 19:08) Psych Screen (12/21/17 19:08) Drug Screen, Random Urine (12/21/17 19:08) Alcohol (Ethanol) (12/21/17 19:08) Ed Discharge Order (12/22/17 08:48) Labs Laboratory Tests Test 12/21/17 19:30 White Blood Count 4.6 TH/MM3 Red Blood Count 3.95 MIL/MM3 Hemoglobin 12.0 GM/DL Hematocrit 35.2 % Mean Corpuscular Volume 89.1 FL Mean Corpuscular Hemoglobin 30.3 PG Mean Corpuscular Hemoglobin Concent 34.0 % Red Cell Distribution Width 13.0 % Platelet Count 311 TH/MM3 Mean Platelet Volume 7.4 FL Neutrophils (%) (Auto) 41.3 % Lymphocytes (%) (Auto) 47.1 % Monocytes (%) (Auto) 9.3 % Eosinophils (%) (Auto) 1.6 % Basophils (%) (Auto) 0.7 % Neutrophils # (Auto) 1.9 TH/MM3 Lymphocytes # (Auto) 2.2 TH/MM3 Monocytes # (Auto) 0.4 TH/MM3 Eosinophils # (Auto) 0.1 TH/MM3 Basophils # (Auto) 0.0 TH/MM3 CBC Comment DIFF FINAL Differential Comment Urine Color YELLOW Urine Turbidity HAZY Urine pH 5.0 Urine Specific [place] 1.015 Urine Protein 30 mg/dL Urine Glucose (UA) NEG mg/dL Urine Ketones NEG mg/dL Urine Occult Blood NEG Urine Nitrite NEG Urine Bilirubin NEG Urine Urobilinogen 2.0 MG/DL Urine Leukocyte Esterase SMALL Urine WBC 2 /hpf Urine Squamous Epithelial Cells 9 /hpf Urine Hyaline Casts 11 /lpf Urine Granular Casts 9 /lpf Urine Mucus FEW /lpf Microscopic Urinalysis Comment CULT NOT INDICATED Blood Urea Nitrogen 10 MG/DL Creatinine 0.87 MG/DL Random Glucose 118 MG/DL Total Protein 9.4 GM/DL Albumin 3.6 GM/DL Calcium Level 8.4 MG/DL Alkaline Phosphatase 94 U/L Aspartate Amino Transf (AST/SGOT) 78 U/L Alanine Aminotransferase (ALT/SGPT) 54 U/L Total Bilirubin 0.2 MG/DL Sodium Level 139 MEQ/L Potassium Level 3.6 MEQ/L Chloride Level 104 MEQ/L Carbon Dioxide Level 24.3 MEQ/L Anion Gap 11 MEQ/L Estimat Glomerular Filtration Rate 85 ML/MIN Thyroid Stimulating Hormone 3rd Gen 4.260 uIU/ML Urine Opiates Screen NEG Urine Barbiturates Screen NEG Urine Amphetamines Screen NEG Urine Benzodiazepines Screen NEG Urine Cocaine Screen NEG Urine Cannabinoids Screen NEG Ethyl Alcohol Level 294 MG/DL MDM Supervised Visit with ALANNAH: No Diagnosis Primary Impression: Alcohol-induced mood disorder Patient Instructions: General Instructions, Mood Disorders (ED) Departure Forms: Tests/Procedures Disposition: 01 DISCHARGE HOME Condition: Stable Neelam Hardy December 22, 2017 08:47
--- NOTE | 2017-12-22 12:36 | PD.PSY.CON ---
Provisional Diagnosis Admission Date [place] I. Alcohol-induced mood disorder, alcohol use disorder, history of bipolar disorder [place] II. Deferred [place] III. Hypertension History of Present Illness Service Psychiatry Consult Requested By ER Reason for Consult Suicidal ideation Primary Care Physician Unknown HPI The patient was seen this morning at 7:30 AM The patient is a 47-year-old -[place] woman, domiciled with friends in [facility], single, unemployed, with self-reported psychiatric history bipolar disorder, but no previous psychiatric hospitalizations, no previous suicide attempts, alcohol use disorder, multiple ER visits in the context of alcohol intoxication, medical history hypertension, who brought in under the Scruggs act with reports of suicidal ideation. He had arrival to the ER the patient was intoxicated with alcohol. BAL was 294 he had arrival to the ER. The patient is calm and cooperative now, clinically sober. She does report some shakiness. Patient now states that she is not suicidal. She was reportedly in the middle of an intersection when the police arrived, and at that time she stated she was suicidal "while I was intoxicated, I do not even know what I was verbalized". She admits to drinking 6-12 beers every day. She denies any other drug use. She reportedly told the police that she was although she denies that at this time. No acute agitation, no aggressive behavior, no paranoia, no ideas of reference, loosening of associations present. She denies visual and auditory hallucinations. Review of Systems Constitutional: DENIES: Diaphoretic episodes, Fatigue, Fever, Weight gain, Weight loss, Chills, Dizziness, Change in appetite, Night Sweats Endocrine: DENIES: Abnorml menstrual pattern, Heat/cold intolerance, Polydipsia , Polyuria, Polyphagia Eyes: DENIES: Blurred vision, Diplopia, Eye inflammation, Eye pain, Vision loss , Photosensitivity, Double Vision Ears, nose, mouth, throat: DENIES: Tinnitus, Hearing loss, Vertigo, Nasal discharge, Oral lesions, Throat pain, Hoarseness, Ear Pain, Running Nose, Epistaxis, Sinus Pain, Toothache, Odynophagia Respiratory: DENIES: Apneas, Cough, Snoring, Wheezing, Hemoptysis, Sputum production, Shortness of breath Cardiovascular: DENIES: Chest pain, Palpitations, Syncope, Dyspnea on Exertion , PND, Lower Extremity Edema, Orthopnea, Claudication Gastrointestinal: DENIES: Abdominal pain, Black stools, Bloody stools, Constipation, Diarrhea, Nausea, Vomiting, Difficulty Swallowing, Anorexia Genitourinary: DENIES: Abnormal vaginal bleeding, Dysmenorrhea, Dyspareunia, Sexual dysfunction, Urinary frequency, Urinary incontinence, Urgency, Hematuria , Dysuria, Nocturia, Vaginal discharge Musculoskeletal: DENIES: Joint pain, Muscle aches, Stiffness, Joint Swelling, Back pain, Neck pain Integumentary: DENIES: Abnormal pigmentation, Pruritus, Rash, Nail changes, Breast masses, Breast skin changes, Nipple discharge Hematologic/lymphatic: DENIES: Bruising, Lymphadenopathy Immunologic/allergic: DENIES: Eczema, Urticaria Neurologic: DENIES: Abnormal gait, Headache, Localized weakness, Paresthesias, Seizures, Speech Problems, Tremor, Poor Balance Psychiatric: DENIES: Anxiety, Confusion, Mood changes, Depression, Hallucinations, Agitation, Suicidal Ideation, Homicidal Ideation, Delusions Past Family Social History Coded Allergies: No Known Allergies (Unverified Adverse Reaction, Unknown, 06/28/17) Active Scripts Ibuprofen (Ibuprofen) 800 Mg Tab, 800 MG PO Q6HR Y for PAIN, #30 TAB 0 Refills Prov:Kristine Blankenship 06/28/17 Pantoprazole (Protonix) 40 Mg Tab, 40 MG PO DAILY for Reflux, #30 TAB 0 Refills Prov:Shawnee Dominguez MD 06/02/17 Multiple Vitamins W/ Minerals (Thera M Plus) 1 Tab, 1 TAB PO DAILY for Nutritional Supplement for 30 Days, #30 TAB Prov:Abimbola Schwab 05/14/17 Thiamine HCl (Gnp Vitamin B-1) 100 Mg Tab, 100 MG PO DAILY for Nutritional Supplement for 30 Days, #30 TAB Prov:Abimbola Schwab 05/14/17 Folic Acid (Folic Acid) 1 Mg Tablet, 1 MG PO DAILY for Nutritional Supplement for 30 Days, #30 TAB Prov:Abimbola Schwab 05/14/17 Omeprazole (Omeprazole) 40 Mg Cap, 40 MG PO DAILY, #30 CAP 0 Refills Prov:Edy Child MD 05/02/17 Nifedipine ER 24 HR (Nifedipine ER 24 HR) 60 Mg Tab, 60 MG PO DAILY for Blood Pressure Management, #30 TAB 2 Refills Prov:Florencia Eldridge DO 04/11/17 Reported Medications Ibuprofen (Ibuprofen) 800 Mg Tab, 800 MG PO BID, #40 TAB 0 Refills 05/02/17 Hydrochlorothiazide (Hydrochlorothiazide) 25 Mg Tab, 25 MG PO DAILY, #30 TAB 0 Refills 04/06/17 Levothyroxine (Levothyroxine) 125 Mcg Tab, 125 MCG PO DAILY for Thyroid, #30 TAB 0 Refills 04/06/17 Clonidine (Clonidine) 0.1 Mg Tab, 0.1 MG PO BID for Blood Pressure Management, # 60 TAB 0 Refills 04/06/17 Citalopram (Citalopram) 10 Mg Tab, 10 MG PO DAILY for Control Depression, #30 TAB 0 Refills 04/06/17 Sucralfate (Sucralfate) 1 Gram Tab, 1 GM PO TID for Duodenal ulcer, #90 TAB 0 Refills on empty stomach 04/06/17 Discontinued Scripts Ondansetron Odt (Zofran Odt) 4 Mg Tab, 4 MG SL Q6HR Y for Nausea/Vomiting, #10 TAB 0 Refills Prov:Shawnee Dominguez MD 06/02/17 Ondansetron (Zofran) 4 Mg Tab, 4 MG PO Q6HR Y for NAUSEA OR VOMITING, #10 TAB 0 Refills Prov:Lev Lane MD 05/18/17 Family Psych History No family psychiatric history Social History Patient was born and raised in [facility], she lives with friends in [facility], single, she has a 21-year-old daughter, unemployed, highest level of education is 10th grade Patient's Strengths (min. 2) Verbal communicate Physical Exam Vital Signs Vital Signs Date Time Temp Pulse Resp B/P (MAP) Pulse Ox O2 Delivery O2 Flow Rate FiO2 12/22/17 06:35 98.6 76 18 154/87 (109) 95 Room Air Lab Results Test 12/21/17 19:30 White Blood Count 4.6 TH/MM3 Red Blood Count 3.95 MIL/MM3 Hemoglobin 12.0 GM/DL Hematocrit 35.2 % Mean Corpuscular Volume 89.1 FL Mean Corpuscular Hemoglobin 30.3 PG Mean Corpuscular Hemoglobin Concent 34.0 % Red Cell Distribution Width 13.0 % Platelet Count 311 TH/MM3 Mean Platelet Volume 7.4 FL Neutrophils (%) (Auto) 41.3 % Lymphocytes (%) (Auto) 47.1 % Monocytes (%) (Auto) 9.3 % Eosinophils (%) (Auto) 1.6 % Basophils (%) (Auto) 0.7 % Neutrophils # (Auto) 1.9 TH/MM3 Lymphocytes # (Auto) 2.2 TH/MM3 Monocytes # (Auto) 0.4 TH/MM3 Eosinophils # (Auto) 0.1 TH/MM3 Basophils # (Auto) 0.0 TH/MM3 CBC Comment DIFF FINAL Differential Comment Urine Color YELLOW Urine Turbidity HAZY Urine pH 5.0 Urine Specific [place] 1.015 Urine Protein 30 mg/dL Urine Glucose (UA) NEG mg/dL Urine Ketones NEG mg/dL Urine Occult Blood NEG Urine Nitrite NEG Urine Bilirubin NEG Urine Urobilinogen 2.0 MG/DL Urine Leukocyte Esterase SMALL Urine WBC 2 /hpf Urine Squamous Epithelial Cells 9 /hpf Urine Hyaline Casts 11 /lpf Urine Granular Casts 9 /lpf Urine Mucus FEW /lpf Microscopic Urinalysis Comment CULT NOT INDICATED Blood Urea Nitrogen 10 MG/DL Creatinine 0.87 MG/DL Random Glucose 118 MG/DL Total Protein 9.4 GM/DL Albumin 3.6 GM/DL Calcium Level 8.4 MG/DL Alkaline Phosphatase 94 U/L Aspartate Amino Transf (AST/SGOT) 78 U/L Alanine Aminotransferase (ALT/SGPT) 54 U/L Total Bilirubin 0.2 MG/DL Sodium Level 139 MEQ/L Potassium Level 3.6 MEQ/L Chloride Level 104 MEQ/L Carbon Dioxide Level 24.3 MEQ/L Anion Gap 11 MEQ/L Estimat Glomerular Filtration Rate 85 ML/MIN Thyroid Stimulating Hormone 3rd Gen 4.260 uIU/ML Urine Opiates Screen NEG Urine Barbiturates Screen NEG Urine Amphetamines Screen NEG Urine Benzodiazepines Screen NEG Urine Cocaine Screen NEG Urine Cannabinoids Screen NEG Ethyl Alcohol Level 294 MG/DL Mental Status Examination Appearance: Appropriate Consciousness: Alert Orientation: x4 Motor Activity: Normal gait Speech: Unremarkable Language: Adequate Fund of Knowledge: Adequate Attention and Concentration: Adequate Memory: Unremarkable Mood: Appropriate Affect: Appropriate Thought Process & Associations: Intact Thought Content: Appropriate Hallucination Type: None Delusion Type: None Suicidal Ideation: No Suicidal Plan: No Suicidal Intention: No Homicidal Ideation: No Homicidal Plan: No Homicidal Intention: No Insight: Adequate Judgment: Adequate Assessment & Plan Problem List: (1) Alcohol-induced mood disorder ICD Codes: F10.94 - Alcohol use, unspecified with alcohol-induced mood disorder Status: Acute Assessment & Plan: At the moment of the psychiatric evaluation the patient is clinically sober. She does present mild bilateral tremor, will give 1 mg of Ativan p.o. She denies symptomatology of depression, anxiety, andria and psychosis. She denies suicidal homicidal ideation. Denies visual and auditory hallucinations. She is logical, coherent and relevant. Oriented 3. Recent suicidal statement was made under alcohol intoxication. She does not meet criteria for involuntary psychiatric admission at this moment. We will referred the patient to [facility] for detox/rehab. Scruggs act will be lifted Assessment & Plan Estimated LOS: Seb Eagle MD December 22, 2017 12:36
== END 2017-12-22 09:15 | disposition home or self-care (01) ==
LOC: NEDAMB 18:51 → NEPJ 12-22 09:15
DX: F10.14 Alcohol abuse with alcohol-induced mood disorder (principal); F20.9 Schizophrenia, unspecified; F31.9 Bipolar disorder, unspecified; D64.9 Anemia, unspecified; I10 Essential (primary) hypertension; Z79.899 Other long term (current) drug therapy
CPT/HCPCS: 80053; 80307; 81001; 84443; 84703; 85025; 99284